=== PATIENT | male | born 1960 | race Caucasian/White ===

== ENCOUNTER 2019-07-26 06:04 | Inpatient (IN) | payer MEDICARE, SELFPAY ==
[2019-07-26] VITALS (18 sets, daily range): BP systolic 88–112; BP diastolic 56–74; PULSE 83–113; RESP 12–20; TEMP 36.4–37.4; O2SAT 93–100; BMI 24.9
--- NOTE | ~2019-07-26 | XR_ITS ---
EXAMINATION: XR chest 1V portable 07/26/2019 07:51 INDICATION: Low oxygen saturation PROCEDURE: AP portable chest COMPARISON: 06/09/2005 FINDINGS: The lungs are clear. The cardiomediastinal silhouette is within normal limits. There are no pleural effusions. There is no pneumothorax suspected. IMPRESSION: 1: NO ACUTE CARDIOPULMONARY DISEASE. Reviewed, dictated and finalized at location A.
--- NOTE | ~2019-07-26 | CT_ITS ---
EXAMINATION: CT abdomen pelvis w con DATE: 07/26/2019 06:58 INDICATION: Lower abdominal pain TECHNIQUE: Computed tomography (CT) of the abdomen and pelvis was performed with 100 cc Omnipaque 350 intravenous contrast. The dose-length product was 758.20 mGy-cm. Automated exposure control and iter ative reconstruction technique were employed. COMPARISON: None. FINDINGS: Bibasilar dependent atelectasis. Heart size normal. No significant pleural or pericardial e ffusion. No significant vascular abnormality. No lymphadenopathy. Appendix dilated measuring 16 mm with associated appendicolith. There is periappendiceal phlegmonous change. There is free fluid in the paracolic gutters, pelvis and perihepatic space. Cannot exclude pe rforation. No evidence for free air or abscess. Small subcentimeter hypodensity in the liver, most likely benign. The spleen contains calcified granu shirin. The pancreas, adrenal glands and kidneys are unremarkable. Incidental note is made of a gastri c diverticulum at the fundus. Mild thickening of the bladder wall with small amount of intraluminal g as, possibly from recent instrumentation. Grade 1 spondylolisthesis at L5-S1 secondary to bilateral s pondylolysis. Moderate lumbar spondylosis. IMPRESSION: 1. Acute appendicitis. Cannot exclude perforation. No evidence for free air or abscess. Reviewed, dictated and finalized at location A.
--- NOTE | 2019-07-26 06:19 | ED.ABDPAIN ---
HPI - Abdominal Pain General Chief Complaint: Abdominal Pain <Anna Reynolds MD - Last Filed: 07/26/19 06:51> Stated Complaint: abd pain <Anna Reynolds MD - Last Filed: 07/26/19 06:51> Time Seen by Provider: 07/26/19 06:07 <Anna Reynolds MD - Last Filed: 07/26/19 06:51> Source: patient <Anna Reynolds MD - Last Filed: 07/26/19 06:51> Mode of arrival: EMS <Anna Reynolds MD - Last Filed: 07/26/19 06:51> Limitations: no limitations <Anna Reynolds MD - Last Filed: 07/26/19 06:51> History of Present Illness HPI narrative: Patient is a 58-year-old man who presents to the emergency department via EMS for lower abdominal pain. Patient reports onset of symptoms a couple of days ago. Patient locates the pain diffusely across the lower abdomen feeling worse on the right side than the left. Patient states the pain had been intermittent but is worse this morning. Patient states his last bowel movement was 3 days ago. Patient states it is unusual as he normally goes every day. Patient denies any significant difficulty with urination, nausea, or vomiting. Patient reports mild dysuria this morning. <Anna Reynolds MD - Last Filed: 07/26/19 06:51> MD elicited complaint: abdominal pain <Anna Reynolds MD - Last Filed: 07/26/19 06:51> Pertinent past history: none <Anna Reynolds MD - Last Filed: 07/26/19 06:51> Onset (ago): day(s) (3) <Anna Reynolds MD - Last Filed: 07/26/19 06:51> Pain Consistency: constant (Currently) and intermittent (Initially) <Anna Reynolds MD - Last Filed: 07/26/19 06:51> Location: RLQ, LLQ and suprapubic <Anna Reynolds MD - Last Filed: 07/26/19 06:51> Associated symptoms: constipation <Anna Reynolds MD - Last Filed: 07/26/19 06:51> Related Data Home Medications: Home Medications Medication Instructions Recorded Confirmed acetaminophen [Tylenol] 500 mg PO BID PRN 07/26/19 07/26/19 albuterol sulfate 1 - 4 puff INHALATION Q4-6H PRN 07/26/19 07/26/19 aspirin 81 mg PO DAILY 07/26/19 07/26/19 fentanyl See Rx Instructions .ROUTE .COMPLEX 07/26/19 07/26/19 gabapentin 200 mg PO QID 07/26/19 07/26/19 hydrochlorothiazide 12.5 mg PO DAILY 07/26/19 07/26/19 hydrocodone-acetaminophen 1 tablet PO Q4H PRN 07/26/19 07/26/19 levothyroxine 50 mcg PO DAILY 07/26/19 07/26/19 loratadine 10 mg PO DAILY 07/26/19 07/26/19 losartan 50 mg PO DAILY 07/26/19 07/26/19 thmxyyhh-hbn-zjrwx-vit K-lycop 1 tablet PO DAILY 07/26/19 07/26/19 [Men's Multivitamin] naproxen sodium [Aleve] 220 mg PO BID 07/26/19 07/26/19 pantoprazole 40 mg PO DAILY 07/26/19 07/26/19 sertraline 100 mg PO DAILY 07/26/19 07/26/19 <Anna Reynolds MD - Last Filed: 07/26/19 06:51> Allergies/Adverse Reactions: Allergies Allergy/AdvReac Type Severity Reaction Status Date / Time poison rubén extract Allergy Unknown Verified 05/13/19 08:40 pollen extracts Allergy Unknown Verified 05/13/19 08:40 <Anna Reynolds MD - Last Filed: 07/26/19 06:51> Review of Systems Review of Systems: All systems reviewed & are unremarkable except as noted in HPI and below <Anna Reynolds MD - Last Filed: 07/26/19 06:51> Gastrointestinal: Gastrointestinal: Reports abdominal pain, Reports constipation, Denies diarrhea, Denies nausea and Denies vomiting <Anna Reynolds MD - Last Filed: 07/26/19 06:51> Genitourinary: Genitourinary: Denies hematuria and Reports dysuria (This morning) <Anna Reynolds MD - Last Filed: 07/26/19 06:51> [facility] Past Medical History Medical History: Medical History (Updated 07/26/19 @ 15:52 by Molly Gee PA-C) Chronic low back pain (Unknown) Chronic, continuous use of opioids Depression Fibromyalgia GERD (gastroesophageal reflux disease) Hypertension (Unknown) Hypothyroidism Mitral valve regurgitation Echocardiogram 01/21/2018 showed mild
[2019-07-26 06:21] LABS: Basophils Percent Auto 0.2 % (0.2-1.2); Eosinophils Percent Auto 0.2 % (0-4.4); Hemoglobin 13.3 g/dL (14.0-18.0); Lymphocytes Absolute Auto 0.87 K/mm3 (0.9-3.2); Mean Corpuscular HGB Conc 34.1 g/dl (32-36); Mean Corpuscular Hemoglobin 30.7 pg (26-34); Mean Corpuscular Volume 90.1 fl (80-100); Mean Platelet Volume 9.1 fl (7.4-10.4); Monocytes Absolute Auto 0.2 K/mm3 (0.1-0.6); Monocytes Percent Auto 3.3 % (2.6-8.5); Neutrophils Absolute Auto 3.8 K/mm3 (1.3-6.7); Neutrophils Percent Auto 78.3 % (45.5-73.1); Platelet Count Result 342 k/mm3 (150-375); Red Blood Count 4.33 M/mm3 (4.6-6.20); Red Cell Distribution Width 12.8 % (11.5-14.5); White Blood Count 4.8 K/mm3 (4.5-10.0)
[2019-07-26] MEDS: LACTATED RINGERS 1,000 ML 999 ML IV CONT ×2 (06:26→07:20)
[2019-07-26 06:28] LABS: Add Urine Microscopic? NO; Appearance Urine Clear (Clear); Bilirubin Urine Negative (Negative); Blood Urine Negative (Negative); Color Urine Yellow (Yellow); Glucose Urine UA Negative (Negative); Ketones Urine Negative (Negative); Leukocyte Esterase Ur Negative LEU/UL (Negative); Nitrate Urine Negative (Negative); Protein Urine Negative (Negative); RBC Urine 0-2 /hpf (0-2); Urobilinogen Urine Negative mg/dL (<2.0); WBC Urine 0-3 /hpf
[2019-07-26 06:33] LABS: Alanine Aminotransferase 17 U/L (4-50); Albumin Level 4.3 g/dL (3.5-5.1); Alkaline Phosphatase 56 U/L (38-126); Aspartate Amino Transferase 21 U/L (17-59); Bilirubin,Total 1.1 mg/dL (0.2-1.3); Blood Urea Nitrogen 9 mg/dL (9-20); Calcium 8.8 mg/dL (8.4-10.2); Carbon Dioxide 28 mmol/L (22-30); Chloride 97 mmol/L (98-107); Estimated CRCL calculation 78 ml/min; Estimated Glomerular Filt Rate > 60; Glucose 128 mg/dL (75-110); Lipase 16 U/L (23-300); Potassium 3.2 mmol/L (3.4-5.0); Sodium 135 mmol/L (137-145)
[2019-07-26 06:59] LABS: INR 1.4; Prothrombin Time 16.3 Seconds (11.1-14.7)
[2019-07-26 07:00] LABS: Partial Thromboplastin Time 32.5 SECONDS (22.3-36.8)
[2019-07-26 07:04] LABS: Lactic Acid Reflex 1.8 mmol/L (0.7-2.1)
--- NOTE | 2019-07-26 07:46 | PC.NURSE ---
While pt fell asleep pulse OX went down to 90-91% on RA. MD Bird went in room to update pt at this time and placed pt on 2L nasal cannula. Pt now awake and 02 saturation is back to 100%. Will keep O2 2L to allow pt to fall asleep without low O2 levels
[2019-07-26] MEDS: HYDROMORPHONE HCL 1 MG/ML INJ 0.5 MG IV PUSH (07:58)
--- NOTE | 2019-07-26 07:59 | ECG_ITS ---
Measurements Intervals [place] Rate: 112 P: 65 CT: 171 QRS: 35 QRSD: 109 T: 33 QT: 286 QTc: 391 Interpretive Statements SINUS TACHYCARDIA NONSPECIFIC T-WAVE ABNORMALITY- DIFFUSE LEADS ABNORMAL ECG Electronically Signed On 07-26-2019 13:11:55 CDT by Jakob Gomez D.O.
[2019-07-26] MEDS: ONDANSETRON INJ 4 MG/2 ML VIAL IV PUSH ×2 (08:00→14:54)
--- NOTE | 2019-07-26 09:08 | PC.NURSE ---
Carolyne RN from OR called and nurse report given. Will prepare pt to transport to OR shortly. VSS.
[2019-07-26] MEDS: LACTATED RINGERS 1,000 ML 150 ML IV CONT (09:23)
--- NOTE | 2019-07-26 09:23 | PM.IMHP ---
H&P: HPI History of Present Illness Chief complaint: abd pain Narrative: Braxton Dyson is a 58-year-old man who presented to the emergency department via EMS for lower abdominal pain. Patient reports onset of symptoms a couple of days ago. Patient states this really started about 1:00 p.m. 2 days ago on . That then led up a little bit in came back some in the evening on . He slept fitfully on Sunday night she has me night and then Sunday he had pain on and off through the day. He was able to eat he did not have any nausea or vomiting those 2 days. Pain got significantly worse overnight last night so he decided to come in. Patient locates the pain diffusely across the lower abdomen feeling worse on the right side than the left. Patient states the pain had been intermittent but is worse this morning starting sometime in the middle the night. Patient states his last bowel movement was 3 days ago. Patient states it is unusual as he normally goes every day. He has never had a colonoscopy. Patient denies any significant difficulty with urination, nausea, or vomiting. Patient reports mild dysuria this morning. Workup in the emergency room showed a normal white count and that he's slightly tachycardic and his CT scan shows a 16 mm diameter appendix with surrounding inflammatory change and some pelvic free fluid. (See report). Review of Systems Constitutional: Constitutional: Reports no additional constitutional complaints and Denies frequent falls Eyes: Eyes: Reports as per HPI ENT: Reports Normal hearing present, Denies dizziness and Reports other (Mucous membranes moist.) Cardiovascular: Cardiovascular: Denies chest pain, Denies palpitations, Denies dyspnea and Denies dyspnea on exertion Respiratory: Respiratory: Denies hemoptysis, Denies dyspnea, Denies dyspnea on exertion and Denies wheezing Comments: Patient does smoke 2 packs of cigarettes per day for about 25 years. (50 pack-year history of smoking Is on some inhalers. Denies any shortness of breath or problems today. Gastrointestinal: Gastrointestinal: Reports no additional gastrointestinal complaints Genitourinary: Genitourinary: Denies hematuria, Denies nocturia and Denies urinary frequency Musculoskeletal: Musculoskeletal: Denies deformity and Reports other ( no clubbing,cyanosis, or edema) Integumentary/Breasts: Skin/Breast: Denies new lesions, Denies rash and Denies unusual bruising Neurologic: Reports Normal hearing present, Denies dizziness, Denies frequent falls, Denies memory loss and Denies seizure-like activity Comments: Patient states that he has had spinal issues. He has had pain management injections and at one time apparently has sustained some type of neurologic injury at the level of about T6 or 7 because he has tingling and pain in his arms and shoulders a lot. He is on a 25 mg fentanyl patch for this problem. Psychiatric: Psychiatric: Denies memory loss and Reports other ( normal mood and mental status) Endocrine: Endocrine: Denies cold intolerance and Denies palpitations Hematologic/Lymphatic: Hematologic/Lymphatic: Denies easy bleeding and Denies easy bruising Allergic/Immunologic: Allergic/Immunologic: Denies wheezing and Reports other ( no lymphadenopathy) [facility] Past Medical History Medical History Chronic low back pain (Unknown) Depression Fibromyalgia Hypertension (Unknown) Hypothyroidism Smoker unmotivated to quit (Unknown) Surgical History Surgical History (Updated 07/26/19 @ 06:21 by Anna Reynolds MD) No significant past surgical history Family History Family History (System 05/13/19 @ 08:40 by Idania Farfan) Other Depression Diabetes mellitus Family history of arthritis Family history of mental disorder Family history of thyroid disease Hypertension Social History Social History (Updated 07/26/19 @ 06:21 by Anna Reynolds MD) Smoking packs per day: 2 Smoking ciga
--- NOTE | 2019-07-26 10:02 | WPDANESEPP ---
Anes - Eval Pre Procedure Procedure: Operation Date: 07/26/19 09:30 Proposed Procedures p Laparoscopic Appendectomy - Aroldo Vasquez MD Date/Time: 07/26/19 10:02 Surgeon: Aroldo Vasquez MD Pre Op Diagnosis: abd pain Patient Data Age: 58 Gender: M Height: 5 ft 6 in Weight: 70 kg Last Vital Signs Temp 99.2 F 07/26/19 07:51 Pulse 110 H 07/26/19 09:28 Resp 20 07/26/19 09:28 BP 104/74 07/26/19 09:28 Pulse Ox 98 07/26/19 09:28 Allergies Allergy/AdvReac Type Severity Reaction Status Date / Time poison rubén extract Allergy Unknown Verified 05/13/19 08:40 pollen extracts Allergy Unknown Verified 05/13/19 08:40 Home Medications Medication Instructions Recorded Confirmed Type albuterol sulfate 90 mcg/actuation 1 - 4 inhalation INHALATION Q4-6H 06/30/19 Rx aerosol inhaler PRN #18 gm acetaminophen [Tylenol] 500 mg PO BID PRN 07/26/19 07/26/19 History aspirin 81 mg PO DAILY 07/26/19 07/26/19 History fentanyl 1 patch TOPICAL 07/26/19 History gabapentin 200 mg PO QID 07/26/19 07/26/19 History hydrochlorothiazide 12.5 mg PO DAILY 07/26/19 07/26/19 History hydrocodone-acetaminophen 1 tablet PO Q4H PRN 07/26/19 07/26/19 History levothyroxine 50 mcg PO DAILY 07/26/19 07/26/19 History loratadine 10 mg PO DAILY 07/26/19 07/26/19 History losartan 50 mg PO DAILY 07/26/19 07/26/19 History nbsriufy-cef-bxuav-vit K-lycop 1 tablet PO DAILY 07/26/19 07/26/19 History [Men's Multivitamin] naproxen sodium [Aleve] 220 mg PO BID 07/26/19 07/26/19 History pantoprazole 40 mg PO DAILY 07/26/19 07/26/19 History sertraline 100 mg PO DAILY 07/26/19 07/26/19 History Laboratory Tests 07/26/19 07/26/19 07/26/19 06:11 06:11 06:12 WBC 4.8 K/mm3 K/mm3 (4.5-10.0) RBC 4.33 M/mm3 L M/mm3 (4.6-6.20) Hgb 13.3 g/dL L g/dL (14.0-18.0) Hct 39.0 % L % (42.0-52.0) MCV 90.1 fl fl (80-100) MCH 30.7 pg pg (26-34) MCHC 34.1 g/dl g/dl (32-36) RDW 12.8 % % (11.5-14.5) Plt Count 342 k/mm3 k/mm3 (150-375) MPV 9.1 fl fl (7.4-10.4) Immature Gran % (Auto) 0.0 % % (0-0.5) Neut % (Auto) 78.3 % H % (45.5-73.1) Lymph % (Auto) 18.0 % L % (18.3-44.2) [place] % (Auto) 3.3 % % (2.6-8.5) Eos % (Auto) 0.2 % % (0-4.4) Baso % (Auto) 0.2 % % (0.2-1.2) Lymph # (Auto) 0.87 K/mm3 L K/mm3 (0.9-3.2) [place] # (Auto) 0.2 K/mm3 K/mm3 (0.1-0.6) Eos # (Auto) 0.0 K/mm3 K/mm3 (0-0.3) Baso # (Auto) 0.0 K/mm3 K/mm3 (0.0-0.1) Abs Immat Gran (auto) 0.00 K/mm3 K/mm3 (0.00-0.031) Absolute Neuts (auto) 3.8 K/mm3 K/mm3 (1.3-6.7) Absolute Nucleated RBC 0.0 K/mm3 K/mm3 (0.0-0.012) Nucleated RBC % 0.0 % % (0.0-0.2) PT INR APTT Sodium 135 mmol/L L mmol/L (137-145) Potassium 3.2 mmol/L L mmol/L (3.4-5.0) Chloride 97 mmol/L L mmol/L (98-107) Carbon Dioxide 28 mmol/L mmol/L (22-30) BUN 9 mg/dL mg/dL (9-20) Creatinine 0.80 mg/dL mg/dL (0.7-1.3) Estim Creat Clear Calc 78 ml/min ml/min Estimated GFR > 60 (59 - ) Glucose 128 mg/dL H mg/dL (75-110) Lactic Acid Calcium 8.8 mg/dL mg/dL (8.4-10.2) Total Bilirubin 1.1 mg/dL mg/dL (0.2-1.3) AST 21 U/L U/L (17-59) ALT 17 U/L U/L (4-50) Alkaline Phosphatase 56 U/L U/L (38-126) Total Protein 7.0 g/dL g/dL (6.3-8.2) Albumin 4.3 g/dL g/dL (3.5-5.1) Lipase 16 U/L L U/L (23-300) Urine Color Yellow (Yellow) Urine Appearance Clear (Clear) Urine pH 6.0 (5.0-9.0) Ur Specific [place] 1.010 (1.001-1.035) Urine Protein Negative mg/dL mg/dL (Negative) Urine G
--- NOTE | 2019-07-26 10:11 | WPDANESEFPP ---
Anes - Eval Final PreProcedure Day of Procedure 07/26/19 10:11 Patient weight: normal Heart: tachycardia Lungs: decreased breath sounds Airway: Mallampati scale class II Neurological: alert and oriented Last oral intake: >/= 8 hours ASA classification: III Emergent: yes Anesthetic plan: proceed Anesthesia type and monitoring: general ETT and standard monitoring Informed Consent: The patient's anesthetic plan and its attendant risks and benefits were discussed with the patient/family/POA. Questions were solicited and answers provided to the satisfaction of the patient/family/POA.
[2019-07-26] MEDS: BUPIVACAINE/EPINEPHRINE 0.5% 30 ML VIAL INFILTRATE (11:03)
[2019-07-26] MEDS: LACTATED RINGERS 1,000 ML 30 ML IV CONT ×2 (12:28)
--- NOTE | 2019-07-26 12:43 | PM.PROC ---
Procedure Note - Detailed Date of procedure: 07/26/19 Pre-op diagnosis: acute appendicitis with perforation and general pe Acute appendicitis Post-op diagnosis: other (1. Acute perforated appendicitis with generalized peritonitis, 2. Small left inguinal hernia white male for see list call if patient is Susan asked Fedder discharge for the her ) Procedure performed: Laparoscopic Appendectomy Description of procedure: The patient was seen again in the Holding Room. The risks, benefits, complications, treatment options, and expected outcomes were discussed with the patient and/or family. The possibilities of reaction to medication, pulmonary aspiration, perforation of viscus, bleeding, recurrent infection, finding a normal appendix, the need for additional procedures, failure to diagnose a condition, and creating a complication requiring transfusion or operation were discussed. There was concurrence with the proposed plan and informed consent was obtained. The site of surgery was properly noted/marked. The patient was taken to Operating Room, and a time out was preformed which identified this as the proper patient, and the procedure verified as laparoscopic appendectomy, possible open. The patient was placed in the supine position and general anesthesia was induced, along with placement of orogastric tube, SCD hose, and a Potter catheter. The abdomen was prepped and draped in a sterile fashion. A 5 mm umbilical incision was made and the peritoneal cavity was accessed using the Veress needle technique. Once the abdomen was insufflated to 14 mmHg pressure a 5 mm XL trocar over the 0? 5 mm scope was carefully twisted into the abdomen via the umbilicus. The pneumoperitoneum was then established to steady pressure of 14 mm Hg. A 12 mm laparoscopic port was placed through a transverse suprapubic incision. An additional 5 mm cannula was then placed in the left lower quadrant of the abdomen at a level half way between the umbilicus and pubic symphysis under direct vision. A careful evaluation of the entire abdomen was carried out. A small left inguinal hernia without anything in it was identified. Also there was noted to be purulent fluid within the abdominal cavity and several loops of small bowel loosely adhered to the anterior abdominal wall and to the cecum in the right lower quadrant. There was cloudy yellowish fluid in the right upper quadrant also. Suction contracts analyst was used to remove 100 cc of fluid prior to his doing any so irrigation. Approximately 800-900 cc of irrigation were used throughout the procedure. The patient was placed in Trendelenburg and left lateral decubitus position. The small intestines were retracted in the cephalad and left lateral direction away from the pelvis and right lower quadrant. The patient was found to have an enlarged and inflamed and perforated appendix that was extending into the right side of the pelvis. The appendix was carefully dissected. Once it was free a 45 mm ethicon endogastroentestinal stapler with a vascular load was placed across the mesoappendix. This was fired and hemostasis was checked along the staple line and appeared to be adequate. Then another cartridge containing a vascular load applied and the stapler then placed right to the base of the appendix. This was also fired and bleeding was checked. Large hole was noted in the sidewall of the appendix near its base. I was then able to come across the base with the final stapler and remove the appendix intact with a hole in it. The appendix was then divided at its base using the same 45 mm stapler with a 3.5 mm bowel wall load. Minimal appendiceal stump was left in place. No obvious mass was noted at the cecum. The sidewall the cecum was carefully dissected away from the right and pelvic sidewall for a length of about 2-3 cm prior to the stapling of the base the appendix. There was no evidence of bleeding, leakage, or complication after division of the appendix at
--- NOTE | 2019-07-26 13:01 | SUR.PHASEI ---
1300; REPORT GIVEN TO LAUREN CORONADO
--- NOTE | 2019-07-26 14:25 | ADMGEN ---
This patient, Braxton Dyson, was admitted to Medical Room 247-. Patient/family oriented to hospital policies and general routines including ID bracelet, bed and alarms, visiting hours, pain management, procedures, bathroom and other care routines, personal items, smoking policy, room service/diet, and visiting hours. Valuables list has been completed. Information on how to activate the Rapid Response Team has been discussed. Patient/Family are encouraged to report perceived risks to care and to ask questions if they do not understand what they are told or what they should do.
[2019-07-26] MEDS: MORPHINE SULFATE 2 MG/ML INJ IV PUSH (14:53)
[2019-07-26] MEDS: LACTATED RINGERS 500 ML IV CONT (15:35)
--- NOTE | 2019-07-26 16:00 | WPDCN ---
Assessment and Plan Assessment and plan (1) Acute appendicitis with localized peritonitis: Onset Date: ~07/25/19 Qualifiers: Appendicitis abscess presence: without abscess Appendicitis gangrene presence: unspecified whether gangrene present Appendicitis perforation presence: unspecified whether perforation present Qualified Code(s): K35.30 - Acute appendicitis with localized peritonitis, without perforation or gangrene Code(s): K35.30 - Acute appendicitis with localized peritonitis, without perforation or gangrene Status: Acute Assessment and Plan: Post-operative day #0, status post laparoscopic appendectomy for acute perforated appendicitis with generalized peritonitis. Drain management, wound care, and pain control will be managed per primary service. Piperacillin/tazobactam day #1. (2) Hypokalemia: Code(s): E87.6 - Hypokalemia Status: Acute Assessment and Plan: Potassium will be replaced and monitored. (3) Hypertension: Onset Date: Unknown Code(s): I10 - Essential (primary) hypertension Status: Acute Assessment and Plan: Blood pressures were reviewed and they have been running soft postoperatively. He will receive 1 liter normal saline bolus and we will hold antihypertensives for now. Continue to monitor blood pressure closely. (4) Hypothyroidism: Code(s): E03.9 - Hypothyroidism, unspecified Status: Acute Assessment and Plan: Continue levothyroxine. (5) Chronic, continuous use of opioids: Code(s): F11.90 - Opioid use, unspecified, uncomplicated Status: Acute Assessment and Plan: For chronic low back pain, which he uses fentanyl patch and [place] p.r.n. (6) Tobacco abuse: Code(s): Z72.0 - Tobacco use Status: Acute Assessment and Plan: Smoking cessation is encouraged. He declines the need for a nicotine patch at this juncture. Additional Plan Supervising physician for this medical consultation is Dr. Jorge Adler. Thank you for allowing us to participate in this patient's care. Please do not hesitate to contact us with any questions. We will follow with you. HPI Data of Consult Date/Time: 07/26/19 16:00 Requesting Physician: Aroldo Vasquez MD Primary Care Provider: Janey Louie, Consult Narrative Narrative: Braxton Dyson is a 58-year-old male smoker with chronic back pain on long-term opiate therapy, hypertension, hypothyroidism, and depression who presented to the emergency department earlier this morning from home for evaluation of abdominal pain. He reports an insidious onset of lower abdominal pain beginning on afternoon. The pain got significantly worse overnight, centered more so in the right lower quadrant, and he came in for evaluation. He was found to have acute perforated appendicitis with generalized peritonitis and he is now status post laparoscopic appendectomy per Dr. Aroldo Vasquez. At the time my evaluation, he is sleepy from anesthesia. He is not having a whole lot of discomfort at this time. He did have some sweats last evening but no fever or chills. Interestingly, his appetite has been good over the last several days. He denies nausea, vomiting, and diarrhea. In fact, he has not had a bowel movement for the last 3 days, which is unusual for him. He also mentions some dysuria yesterday but that has since resolved. No hematuria, urinary hesitancy, or urgency. Review of Systems Review of Systems: Narrative: Twelve systems were reviewed with pertinent positives and negatives as per HPI.
[2019-07-26] MEDS: NICOTINE (*PBKC) 21 MG PATCH 1 PATCH TRANSDERM (16:37)
[2019-07-26] MEDS: LACTATED RINGERS 1,000 ML 100 ML IV CONT (16:43)
[2019-07-26] MEDS: SODIUM CHLORIDE 0.9% IV 1,000 ML 999 ML IV CONT (18:45)
[2019-07-26 19:21] LABS: Hemoglobin 10.4 g/dL (14.0-18.0); Mean Corpuscular HGB Conc 33.5 g/dl (32-36); Mean Corpuscular Hemoglobin 30.5 pg (26-34); Mean Corpuscular Volume 90.9 fl (80-100); Mean Platelet Volume 9.4 fl (7.4-10.4); Platelet Count Result 282 k/mm3 (150-375); Red Blood Count 3.41 M/mm3 (4.6-6.20); Red Cell Distribution Width 13.1 % (11.5-14.5)
[2019-07-26 19:33] LABS: Lactic Acid Reflex 2.3 mmol/L (0.7-2.1)
[2019-07-26 19:34] LABS: Blood Urea Nitrogen 9 mg/dL (9-20); Calcium 7.7 mg/dL (8.4-10.2); Carbon Dioxide 29 mmol/L (22-30); Chloride 98 mmol/L (98-107); Estimated CRCL calculation 78 ml/min; Estimated Glomerular Filt Rate > 60; Glucose 119 mg/dL (75-110); Magnesium 1.3 mg/dL (1.6-2.3); Phosphorus 3.9 mg/dL (2.5-4.5); Potassium 3.4 mmol/L (3.4-5.0); Sodium 134 mmol/L (137-145)
[2019-07-26] MEDS: SODIUM CHLORIDE 0.9% IV 500 ML IV CONT (19:54)
[2019-07-26] MEDS: SENNA/DOCUSATE SODIUM TABLET 2 TAB PO (20:24)
[2019-07-26] MEDS: GABAPENTIN 100 MG CAPSULE 200 MG PO (20:25)
[2019-07-26] MEDS: MAGNESIUM SULF 2 GM/WATER 50ML 2 GM/50 ML BAG IVPB (21:56)
[2019-07-26 22:20] LABS: Reflex Lactic Acid Yes or No Add Lactic
[2019-07-26 22:54] LABS: Lactic Acid 1.6 mmol/L (0.7-2.1)
[2019-07-27] VITALS (10 sets, daily range): BP systolic 88–117; BP diastolic 58–74; PULSE 96–109; RESP 16–20; TEMP 36.8–37.5; O2SAT 94–98
[2019-07-27 02:21] LABS: Hematocrit 29.4 % (42.0-52.0); Hemoglobin 10.1 g/dL (14.0-18.0); Mean Corpuscular HGB Conc 34.4 g/dl (32-36); Mean Corpuscular Hemoglobin 30.8 pg (26-34); Mean Corpuscular Volume 89.6 fl (80-100); Red Blood Count 3.28 M/mm3 (4.6-6.20); Red Cell Distribution Width 13.1 % (11.5-14.5); White Blood Count 10.8 K/mm3 (4.5-10.0)
[2019-07-27] MEDS: LACTATED RINGERS 500 ML 250 ML IV CONT (02:21)
[2019-07-27 02:33] LABS: Alanine Aminotransferase 14 U/L (4-50); Alkaline Phosphatase 32 U/L (38-126); Aspartate Amino Transferase 23 U/L (17-59); Blood Urea Nitrogen 9 mg/dL (9-20); Calcium 7.5 mg/dL (8.4-10.2); Carbon Dioxide 26 mmol/L (22-30); Chloride 100 mmol/L (98-107); Estimated CRCL calculation 102 ml/min; Estimated Glomerular Filt Rate > 60; Glucose 112 mg/dL (75-110); Potassium 3.2 mmol/L (3.4-5.0); Sodium 132 mmol/L (137-145)
[2019-07-27 02:46] LABS: Band Neutrophils Percent 10 % (0-6); Large Platelets Present; Lymphocytes Absolute Manual 1.29 K/mm3 (1.1-4.5); Monocytes Absolute Manual 0.54 K/mm3 (0.1-0.90); Monocytes Percent Manual 5 % (3-9); Neutrophils Absolute Manual 8.96 K/mm3 (1.3-6.7); Neutrophils Percent Manual 73 % (46-73); Platelet Clumps Present; Platelet Estimate Adequate (Adequate); Total Cells Counted 100
[2019-07-27] MEDS: ONDANSETRON INJ 4 MG/2 ML VIAL IV PUSH ×2 (04:24→22:23)
[2019-07-27] MEDS: LACTATED RINGERS 1,000 ML 150 ML IV CONT (04:39)
[2019-07-27] MEDS: LEVOTHYROXINE SODIUM 50 MCG TABLET PO (05:37)
[2019-07-27] MEDS: POTASSIUM CHLORIDE 20 MEQ TABLET 40 MEQ PO (08:26)
[2019-07-27 08:27] LABS: Magnesium 1.9 mg/dL (1.6-2.3)
[2019-07-27] MEDS: ENOXAPARIN 40 MG/0.4 ML SYRINGE SUB-Q (09:08)
[2019-07-27] MEDS: LORATADINE 10 MG TABLET PO (09:09)
[2019-07-27] MEDS: GABAPENTIN 100 MG CAPSULE 200 MG PO ×4 (09:09→20:20)
[2019-07-27] MEDS: PANTOPRAZOLE 40 MG TABLET PO ×2 (09:09→20:20)
[2019-07-27] MEDS: SERTRALINE HCL 50 MG TABLET 100 MG PO (09:09)
[2019-07-27] MEDS: NICOTINE (*PBKC) 21 MG PATCH 1 PATCH TRANSDERM (09:12)
[2019-07-27] MEDS: polyethylene glycoL 3350 17 GM POWD.PACK PO (09:17)
--- NOTE | 2019-07-27 09:59 | PM.PNGS ---
Progress Note: A&P Assessment and Plan (1) Acute appendicitis with perforation, generalized peritonitis, and gangrene, without abscess: Onset Date: ~07/25/19 Code(s): K35.20 - Acute appendicitis with generalized peritonitis, without abscess Status: Acute Assessment and Plan: patient receiving IV antibiotics. Lab seemed to be okay except for slow low potassium. Had some episodes of hypotension yesterday probably related to peritonitis. Hopefully this will improve with time period continue to monitor with urine output and appreciate hospitalist help with his medical problems. (2) Hypokalemia: Onset Date: ~07/27/19 Code(s): E87.6 - Hypokalemia Status: Acute Assessment and Plan: Receiving supplementation. (3) Tobacco abuse: Onset Date: Unknown Code(s): Z72.0 - Tobacco use Status: Acute Assessment and Plan: Patient has p.r.n. nicotine patches. Will encourage patient to stop smoking. (4) Chronic, continuous use of opioids: Onset Date: Unknown Code(s): F11.90 - Opioid use, unspecified, uncomplicated Status: Acute Assessment and Plan: Patient has a fentanyl patch on his right upper arm which will need to be changed tomorrow. Controlling patient's pain with usual medications. (5) Smoker unmotivated to quit: Onset Date: Unknown Code(s): F17.200 - Nicotine dependence, unspecified, uncomplicated Status: Acute Assessment and Plan: Will encourage patient to stop smoking. Additional Plan Agree with potassium supplementation Will increase diet to full liquids Continue IV antibiotics for now. If improve may be able to go home tomorrow on oral antibiotics to total 10-14 days. Subjective Subjective Date/Time Seen: 07/27/19 09:59 Post Op day: 1 Patient reports: no new complaints Interval history: Patient had intermittent hypotension through the day yesterday. He received several boluses with improvement. Most recent blood pressure was 108 systolic. He has some trouble voiding routinely and required straight catheterization plus Potter catheter is now placed again for good monitoring of urine output. Patient not having too much abdominal pain and is tolerating liquids well. Will increase to full liquids now. Review of Systems Constitutional: Constitutional: Reports no additional constitutional complaints ENT: Reports other (Mucous Membranes moist.) Cardiovascular: Cardiovascular: Denies dyspnea Respiratory: Respiratory: Denies pain on inspiration and Denies dyspnea Musculoskeletal: Musculoskeletal: Reports other (No calf swelling or edema) Integumentary/Breasts: Skin/Breast: Reports system reviewed and no additional complaints, except as docu Exam Const: General: cooperative, no acute distress, alert and awake Orientation/consciousness: patient oriented x3 HENMT: Mouth: Yes moist mucous membranes Neck: Neck: normal visual inspection Chest: Chest palpation & inspection: normal inspection of the chest Resp: Effort & Inspection: normal respiratory effort Auscultation: clear to auscultation bilaterally Cardio: Jugular venous distension: no JVD Rate: regular rate Rhythm: regular rhythm GI: Inspection: incision ( All 3 laparoscopic incisions healing well) GI Palp: Yes abdominal tenderness ( Mild and improved.) Auscultation: normal bowel sounds Rectal Exam: deferred Other: drain site is covered with a Tegaderm. Yellowish cloudy drainage from the STEPHEN drain. Neuro: General: patient oriented x3 and moves all extremities Speech: normal speech Extrem: General: normal exam except as noted Psych: Mental Status: mental status grossly normal Speech and movement: Normal speech and movement present Affect: normal affect Thought content: Yes Normal thought content present Objective Data Vital Signs Vital Signs: Vital Signs - 24 hr 07/26/19 12:28 07/26/19 12:40 07/26/19 12:55
--- NOTE | 2019-07-27 10:39 | P.PNIM_ITS ---
Progress Note: A&P Assessment and Plan (1) Acute appendicitis with localized peritonitis: Onset Date: ~07/25/19 Qualifiers: Appendicitis abscess presence: without abscess Appendicitis gangrene presence: unspecified whether gangrene present Appendicitis perforation presence: unspecified whether perforation present Qualified Code(s): K35.30 - Acute appendicitis with localized peritonitis, without perforation or gangrene Code(s): K35.30 - Acute appendicitis with localized peritonitis, without perforation or gangrene Status: Suspected Assessment and Plan: * Post-operative day #1, status post laparoscopic appendectomy for acute perforated appendicitis with generalized peritonitis. * STEPHEN Drain in place, with yellowish drainage noted. Surgery to manage STEPHEN drain, wound care, and pain control. * Piperacillin/tazobactam day #2. * Surgery has increased his diet to full liquids at this time. * Patient informed me that his pain has not been well controlled because he is normally on [place] 10/325 p.r.n. at home and here he is only receiving 7.5/325 mg for his pain. I discussed this with Dr. Vasquez and he feels comfortable with increasing his pain medications to his normal home [place] 10/325 mg. I do not want to increase his narcotics anymore due to his hypotension. Will continue managing his pain. * Will continue monitoring his symptoms along with the surgical team. (2) Hypokalemia: Onset Date: ~07/27/19 Code(s): E87.6 - Hypokalemia Status: Acute Assessment and Plan: * Potassium was low at 3.3 this morning. I administer oral potassium 40 mEq. Magnesium was 1.9. Stable. * Will recheck potassium in the morning. (3) Hypertension: Onset Date: Unknown Code(s): I10 - Essential (primary) hypertension Status: Acute Assessment and Plan: * Blood pressures were reviewed and they have been running soft postoperatively. Could be secondary to sedation and narcotics. * Postop he received 1 liter normal saline bolus, and he received another 500 cc by the rice farmer. * His blood pressure this morning was improved at 108/62. * Continue to monitor blood pressure closely. Continue to hold his home blood pressure medications at this time. (4) Hypothyroidism: Code(s): E03.9 - Hypothyroidism, unspecified Status: Acute Assessment and Plan: * Continue levothyroxine. (5) Chronic, continuous use of opioids: Onset Date: Unknown Code(s): F11.90 - Opioid use, unspecified, uncomplicated Status: Acute Assessment and Plan: * For chronic low back pain, which he uses fentanyl patch and [place] 10/325 mg p.r.n.. (6) Tobacco abuse: Onset Date: Unknown Code(s): Z72.0 - Tobacco use Status: Acute Assessment and Plan: * Smoking cessation is encouraged. * He declines the need for a nicotine patch at this juncture. Time Spent With Patient Time with patient: 25 - 35 minutes Subjective Date/time seen: 07/27/19 10:39 Interval history: Date of service 07/27/2019: The patient reports being in some pain since his surgery yesterday but is overall feeling slightly better. He states at home he takes [place] 10/325 mg 5
--- NOTE | 2019-07-27 10:39 | PM.IMPN ---
Progress Note: A&P Assessment and Plan (1) Acute appendicitis with localized peritonitis: Onset Date: ~07/25/19 Qualifiers: Appendicitis abscess presence: without abscess Appendicitis gangrene presence: unspecified whether gangrene present Appendicitis perforation presence: unspecified whether perforation present Qualified Code(s): K35.30 - Acute appendicitis with localized peritonitis, without perforation or gangrene Code(s): K35.30 - Acute appendicitis with localized peritonitis, without perforation or gangrene Status: Suspected Assessment and Plan: Post-operative day #1, status post laparoscopic appendectomy for acute perforated appendicitis with generalized peritonitis. STEPHEN Drain in place, with yellowish drainage noted. Surgery to manage STEPHEN drain, wound care, and pain control. Piperacillin/tazobactam day #2. Surgery has increased his diet to full liquids at this time. Patient informed me that his pain has not been well controlled because he is normally on [place] 10/325 p.r.n. at home and here he is only receiving 7.5/325 mg for his pain. I discussed this with Dr. Vasquez and he feels comfortable with increasing his pain medications to his normal home [place] 10/325 mg. I do not want to increase his narcotics anymore due to his hypotension. Will continue managing his pain. Will continue monitoring his symptoms along with the surgical team. (2) Hypokalemia: Onset Date: ~07/27/19 Code(s): E87.6 - Hypokalemia Status: Acute Assessment and Plan: Potassium was low at 3.3 this morning. I administer oral potassium 40 mEq. Magnesium was 1.9. Stable. Will recheck potassium in the morning. (3) Hypertension: Onset Date: Unknown Code(s): I10 - Essential (primary) hypertension Status: Acute Assessment and Plan: Blood pressures were reviewed and they have been running soft postoperatively. Could be secondary to sedation and narcotics. Postop he received 1 liter normal saline bolus, and he received another 500 cc by the cylinder press operator apprentice. His blood pressure this morning was improved at 108/62. Continue to monitor blood pressure closely. Continue to hold his home blood pressure medications at this time. (4) Hypothyroidism: Code(s): E03.9 - Hypothyroidism, unspecified Status: Acute Assessment and Plan: Continue levothyroxine. (5) Chronic, continuous use of opioids: Onset Date: Unknown Code(s): F11.90 - Opioid use, unspecified, uncomplicated Status: Acute Assessment and Plan: For chronic low back pain, which he uses fentanyl patch and [place] 10/325 mg p.r.n.. (6) Tobacco abuse: Onset Date: Unknown Code(s): Z72.0 - Tobacco use Status: Acute Assessment and Plan: Smoking cessation is encouraged. He declines the need for a nicotine patch at this juncture. Time Spent With Patient Time with patient: 25 - 35 minutes Subjective Date/time seen: 07/27/19 10:39 Interval history: Date of service 07/27/2019: The patient reports being in some pain since his surgery yesterday but is overall feeling slightly better. He states at home he takes [place] 10/325 mg 5 times a day as well as fentanyl patches to his back for his chronic back pain and here he is only receiving [place] 7.5/325 mg and he does not feel like his pain is under control. He otherwise was able to tolerate his clear liquid diet this morning. He denies any bowel movements or passing gas this morning. He does report increased belching though. He does report some phlegm in his throat this morning along w
[2019-07-27] MEDS: TAMSULOSIN HCL 0.4 MG CAPSULE PO (11:54)
[2019-07-27] MEDS: LACTATED RINGERS 1,000 ML 100 ML IV CONT (11:57)
[2019-07-27] MEDS: LORAZEPAM 0.5 MG TABLET PO ×2 (14:04→20:19)
[2019-07-27] MEDS: MAG HYDROX/AL HYDROX/SIMETH 30 ML UDC PO ×2 (14:42→20:19)
[2019-07-27] MEDS: KCL 20MEQ/0.9% SOD CHL 1,000 ML 150 ML IV CONT (18:35)
[2019-07-27] MEDS: SENNA/DOCUSATE SODIUM TABLET 2 TAB PO (20:19)
[2019-07-28] MEDS: KCL 20MEQ/0.9% SOD CHL 1,000 ML 150 ML IV CONT ×2 (01:03→09:12)
[2019-07-28] MEDS: ONDANSETRON INJ 4 MG/2 ML VIAL IV PUSH ×4 (04:20→22:49)
[2019-07-28 05:07] LABS: Basophils Percent Auto 0.1 % (0.2-1.2); Eosinophils Absolute Auto 0.1 K/mm3 (0-0.3); Eosinophils Percent Auto 1.2 % (0-4.4); Hematocrit 30.6 % (42.0-52.0); Hemoglobin 10.3 g/dL (14.0-18.0); Immature Granulocyte Absolute 0.03 K/mm3 (0.00-0.031); Immature Granulocyte Percent A 0.3 % (0-0.5); Lymphocytes Absolute Auto 0.45 K/mm3 (0.9-3.2); Lymphocytes Percent Auto 4.6 % (18.3-44.2); Mean Corpuscular HGB Conc 33.7 g/dl (32-36); Mean Corpuscular Hemoglobin 30.3 pg (26-34); Mean Platelet Volume 9.4 fl (7.4-10.4); Monocytes Absolute Auto 0.4 K/mm3 (0.1-0.6); Monocytes Percent Auto 4.4 % (2.6-8.5); Neutrophils Absolute Auto 8.7 K/mm3 (1.3-6.7); Neutrophils Percent Auto 89.4 % (45.5-73.1); Platelet Count Result 306 k/mm3 (150-375); Red Cell Distribution Width 13.2 % (11.5-14.5); White Blood Count 9.8 K/mm3 (4.5-10.0)
[2019-07-28 05:17] LABS: Blood Urea Nitrogen 11 mg/dL (9-20); Calcium 8.6 mg/dL (8.4-10.2); Carbon Dioxide 28 mmol/L (22-30); Chloride 98 mmol/L (98-107); Estimated CRCL calculation 102 ml/min; Estimated Glomerular Filt Rate > 60; Glucose 110 mg/dL (75-110); Potassium 3.9 mmol/L (3.4-5.0); Sodium 131 mmol/L (137-145)
[2019-07-28 06:00] VITALS: BP 144/81; PULSE 108; RESP 16; TEMP 36.9; O2SAT 93
[2019-07-28 08:20] VITALS: BP 142/84; PULSE 104; RESP 18; TEMP 36.8; O2SAT 92
[2019-07-28] MEDS: ENOXAPARIN 40 MG/0.4 ML SYRINGE SUB-Q (09:13)
[2019-07-28] MEDS: MORPHINE SULFATE 4 MG/ML INJ IV PUSH ×2 (09:26→14:30)
--- NOTE | 2019-07-28 11:20 | PM.PNGS ---
Progress Note: A&P Assessment and Plan (1) Acute appendicitis with perforation, generalized peritonitis, and gangrene, without abscess: Onset Date: ~07/25/19 Code(s): K35.20 - Acute appendicitis with generalized peritonitis, without abscess Status: Acute Assessment and Plan: Patient feeling nauseous and bloated today with an episode of vomiting overnight. He has likely developed an ileus. We will put the patient back on clear liquids and provide antiemetics PRN. Will give a dulcolax suppository x 1 today and continue the Miralax if he is able to tolerate oral intake later today. Continue to monitor - I discussed with the patient that we may need to consider an NG tube if nausea/vomiting persists or worsens and he is unable to tolerate a diet. Continue IV Zosyn. Will plan to eventually switch to oral antibiotic therapy closer to discharge. BP improved and stable now with good urine output. (2) Hypokalemia: Onset Date: ~07/27/19 Code(s): E87.6 - Hypokalemia Status: Acute Assessment and Plan: K 3.9 today. Continue to monitor. (3) Tobacco abuse: Onset Date: Unknown Code(s): Z72.0 - Tobacco use Status: Acute Assessment and Plan: Patient has p.r.n. nicotine patches. Encouraged cessation. (4) Chronic, continuous use of opioids: Onset Date: Unknown Code(s): F11.90 - Opioid use, unspecified, uncomplicated Status: Acute Assessment and Plan: Patient has a fentanyl patch that would be due to be changed today. (5) Smoker unmotivated to quit: Onset Date: Unknown Code(s): F17.200 - Nicotine dependence, unspecified, uncomplicated Status: Acute (6) Urinary retention: Code(s): R33.9 - Retention of urine, unspecified Status: Acute Assessment and Plan: Potter catheter in place and Flomax initiated. Good urine output. Management per Hospitalist. Additional Plan Encouraged the patient to be up to chair with meals and walk in the halls again at least 3 times today. Discussed the plan of care and formulated plan of care with Dr. Vasquez. Subjective Subjective Date/Time Seen: 07/28/19 09:20 Post Op day: 2 (lap appy) Patient reports: still having pain, flatus, no bowel movement, nausea and vomiting ( x 1 overnight) Interval history: Reports feeling nauseated this morning and had one episode of vomiting overnight. Reports the nausea started yesterday evening. Reports small amount of flatus today but no BM yet since admission. Reports abdominal pain and bloating. No other complaints at this time. Reports walking the halls three times yesterday. Review of Systems Review of Systems: All systems reviewed & are unremarkable except as noted in HPI and below Cardiovascular: Cardiovascular: Reports no additional cardiovascular complaints, Denies chest pain, Denies leg edema and Denies lightheadedness Respiratory: Respiratory: Reports no additional respiratory complaints, Denies cough, Denies dyspnea and Denies wheezing Comments: Reports feeling difficult to take a deep breath due to abd distention but no shortness of breath at rest or with activity. Gastrointestinal: Gastrointestinal: Reports as per HPI, Reports abdominal pain, Reports bloating, Reports nausea and Reports vomiting Genitourinary: Genitourinary: Reports no additional male genitourinary complaints Comments: Potter in place. Exam Const: General: no acute distress, alert, awake and uncomfortable Orientation/consciousness: patient oriented x3 Resp: Effort & Inspection: normal respiratory effort, able to speak in complete sentences and no respiratory distress Auscultation: rales bilateral Cardio: Rate: tachycardic (mild) Rhythm: regular rhythm GI: Inspection: distended and incision (abd incisions c/d/i, healing as expected) GI Palp: Yes Firmness to palpation present (GI), Yes Tenderness to palpation present (GI) (diffusely tender) and No Guarding due to pa
[2019-07-28] MEDS: LEVOTHYROXINE SODIUM 50 MCG TABLET PO (11:37)
[2019-07-28] MEDS: SERTRALINE HCL 50 MG TABLET 100 MG PO (11:37)
[2019-07-28] MEDS: PANTOPRAZOLE 40 MG TABLET PO ×2 (11:37→20:09)
[2019-07-28] MEDS: TAMSULOSIN HCL 0.4 MG CAPSULE PO (11:38)
[2019-07-28] MEDS: GABAPENTIN 100 MG CAPSULE 200 MG PO ×3 (11:38→20:10)
[2019-07-28] MEDS: LORATADINE 10 MG TABLET PO (11:38)
[2019-07-28] MEDS: BISACODYL 10 MG SUPPOSITORY RECTAL (11:42)
[2019-07-28] MEDS: MORPHINE SULFATE 2 MG/ML INJ IV PUSH (11:44)
[2019-07-28] MEDS: polyethylene glycoL 3350 17 GM POWD.PACK PO (11:54)
--- NOTE | 2019-07-28 13:36 | PM.IMPN ---
Progress Note: A&P Assessment and Plan (1) Acute appendicitis with localized peritonitis: Onset Date: ~07/25/19 Qualifiers: Appendicitis abscess presence: without abscess Appendicitis gangrene presence: unspecified whether gangrene present Appendicitis perforation presence: unspecified whether perforation present Qualified Code(s): K35.30 - Acute appendicitis with localized peritonitis, without perforation or gangrene Code(s): K35.30 - Acute appendicitis with localized peritonitis, without perforation or gangrene Status: Suspected Assessment and Plan: Post-operative day #2, status post laparoscopic appendectomy for acute perforated appendicitis with generalized peritonitis. STEPHEN Drain in place, with yellow/serosanguineous drainage noted. Surgery to manage STEPHEN drain, wound care, and pain control. Piperacillin/tazobactam day #3. Surgery has increased his diet to full liquids which he was tolerating well until yesterday evening when he began having some nausea and an episode of vomiting. Continue the patient's home [place] 10/325 p.r.n. Will continue managing his pain. Will continue monitoring his symptoms along with the surgical team. (2) Hypokalemia: Onset Date: ~07/27/19 Code(s): E87.6 - Hypokalemia Status: Acute Assessment and Plan: Potassium was low at 3.9 this morning. Stable. Will recheck potassium in the morning. (3) Hypertension: Onset Date: Unknown Code(s): I10 - Essential (primary) hypertension Status: Acute Assessment and Plan: Blood pressures were reviewed and they have been running soft postoperatively. Could be secondary to sedation and narcotics. Postop he received 1 liter normal saline bolus, and he received another 500 cc by the asset liability analyst. Today,his blood pressure improved to 144/81. Continue to hold his home blood pressure medications at this time. Continue to monitor blood pressure closely. (4) Hypothyroidism: Code(s): E03.9 - Hypothyroidism, unspecified Status: Acute Assessment and Plan: Continue levothyroxine. (5) Chronic, continuous use of opioids: Onset Date: Unknown Code(s): F11.90 - Opioid use, unspecified, uncomplicated Status: Acute Assessment and Plan: For chronic low back pain, which he uses fentanyl patch and [place] 10/325 mg p.r.n.. (6) Tobacco abuse: Onset Date: Unknown Code(s): Z72.0 - Tobacco use Status: Acute Assessment and Plan: Smoking cessation is encouraged. He declines the need for a nicotine patch at this juncture. Time Spent With Patient Time with patient: 25 - 35 minutes Subjective Date/time seen: 07/28/19 13:36 Interval history: Date of service 07/28/2019: The patient reports being in pain since his surgery. He feels he has abdominal distention, belching but does report passing some gas this morning. He has been having nausea and one episode of vomiting last night. He was tolerating a Full Liquid diet until last night. He denies any bowel movements. He does report some phlegm in his throat this morning along with some coughing, but denies any chest pain, shortness of breath, fever, chills, calf pain, leg swelling, lightheadedness, dizziness or any other symptoms at this time. Review of Systems Review of Systems: All systems reviewed & are unremarkable except as noted in HPI and below Exam Narrative: Exam Narrative: General: 58-year-old man laying mostly flat in bed, resting comfortably, appears tired and falling asleep on my exam. Appears comfortable. In no acute distress. Skin:
[2019-07-28 14:00] VITALS: BP 115/64; PULSE 94; RESP 17; TEMP 36.5; O2SAT 91
[2019-07-28] MEDS: FENTANYL 25 MCG/HR PATCH TRANSDERM (14:23)
[2019-07-28] MEDS: MAG HYDROX/AL HYDROX/SIMETH 30 ML UDC PO (16:24)
[2019-07-28] MEDS: KCL 20MEQ/0.9% SOD CHL 1,000 ML 125 ML IV CONT (18:10)
[2019-07-28 20:00] VITALS: PULSE 94; RESP 17; O2SAT 91
[2019-07-28] MEDS: SENNA/DOCUSATE SODIUM TABLET 2 TAB PO (20:09)
[2019-07-28 22:00] VITALS: BP 123/67; PULSE 96; RESP 20; TEMP 37.4; O2SAT 95
[2019-07-29] MEDS: KCL 20MEQ/0.9% SOD CHL 1,000 ML 125 ML IV CONT (02:51)
[2019-07-29 04:56] LABS: Basophils Percent Auto 0.4 % (0.2-1.2); Eosinophils Absolute Auto 0.2 K/mm3 (0-0.3); Eosinophils Percent Auto 1.9 % (0-4.4); Hematocrit 27.4 % (42.0-52.0); Hemoglobin 9.2 g/dL (14.0-18.0); Immature Granulocyte Absolute 0.03 K/mm3 (0.00-0.031); Immature Granulocyte Percent A 0.3 % (0-0.5); Lymphocytes Absolute Auto 0.68 K/mm3 (0.9-3.2); Lymphocytes Percent Auto 7.5 % (18.3-44.2); Mean Corpuscular HGB Conc 33.6 g/dl (32-36); Mean Corpuscular Hemoglobin 30.3 pg (26-34); Mean Corpuscular Volume 90.1 fl (80-100); Mean Platelet Volume 9.7 fl (7.4-10.4); Monocytes Absolute Auto 0.6 K/mm3 (0.1-0.6); Monocytes Percent Auto 6.8 % (2.6-8.5); Neutrophils Absolute Auto 7.5 K/mm3 (1.3-6.7); Neutrophils Percent Auto 83.1 % (45.5-73.1); Platelet Count Result 300 k/mm3 (150-375); Red Blood Count 3.04 M/mm3 (4.6-6.20); Red Cell Distribution Width 13.3 % (11.5-14.5)
[2019-07-29 05:10] LABS: Blood Urea Nitrogen 11 mg/dL (9-20); Calcium 7.8 mg/dL (8.4-10.2); Carbon Dioxide 24 mmol/L (22-30); Chloride 102 mmol/L (98-107); Estimated CRCL calculation 102 ml/min; Estimated Glomerular Filt Rate > 60; Glucose 95 mg/dL (75-110); Potassium 3.9 mmol/L (3.4-5.0); Sodium 130 mmol/L (137-145)
[2019-07-29 06:00] VITALS: BP 136/68; PULSE 92; RESP 18; TEMP 36.4; O2SAT 93
[2019-07-29] MEDS: LEVOTHYROXINE SODIUM 50 MCG TABLET PO (06:04)
[2019-07-29] MEDS: ONDANSETRON INJ 4 MG/2 ML VIAL IV PUSH (08:28)
[2019-07-29] MEDS: GABAPENTIN 100 MG CAPSULE 200 MG PO ×3 (08:30→16:47)
[2019-07-29] MEDS: PANTOPRAZOLE 40 MG TABLET PO (08:30)
[2019-07-29] MEDS: ENOXAPARIN 40 MG/0.4 ML SYRINGE SUB-Q (08:30)
[2019-07-29] MEDS: SERTRALINE HCL 50 MG TABLET 100 MG PO (08:30)
[2019-07-29] MEDS: LORATADINE 10 MG TABLET PO (08:30)
[2019-07-29] MEDS: TAMSULOSIN HCL 0.4 MG CAPSULE PO (08:30)
--- NOTE | 2019-07-29 09:49 | PM.IMPN ---
Progress Note: A&P Assessment and Plan (1) Acute appendicitis with localized peritonitis: Onset Date: ~07/25/19 Qualifiers: Appendicitis abscess presence: without abscess Appendicitis gangrene presence: unspecified whether gangrene present Appendicitis perforation presence: unspecified whether perforation present Qualified Code(s): K35.30 - Acute appendicitis with localized peritonitis, without perforation or gangrene Code(s): K35.30 - Acute appendicitis with localized peritonitis, without perforation or gangrene Status: Suspected Assessment and Plan: Post-operative day #3 lap appendectomy for acute perforated appendicitis with generalized peritonitis per Dr. Vasquez. STEPHEN Drain in place. Patient tolerating CLD thus far Surgery to manage STEPHEN drain, wound care, diet, and pain control. Piperacillin/tazobactam day #4. Will d/c fluids today as patient has positive fluid balance and tolerating diet this far Continue the patient's home fentanyl and [place] 10/325 p.r.n. Will continue monitoring his symptoms along with the surgical team. (2) Hypokalemia: Onset Date: ~07/27/19 Code(s): E87.6 - Hypokalemia Status: Acute Assessment and Plan: Potassium 3.9 this morning. Stable. Continue to trend potassium (3) Hypertension: Onset Date: Unknown Code(s): I10 - Essential (primary) hypertension Status: Acute Assessment and Plan: Blood pressures were reviewed and are 130s sys today; improvement but have been running a bit soft previous days - likely secondary to narcotics Continue to hold his home blood pressure medications at this time; consider resuming tomorrow if continued improvement Continue to monitor blood pressure closely. (4) Hypothyroidism: Code(s): E03.9 - Hypothyroidism, unspecified Status: Acute Assessment and Plan: Continue levothyroxine. (5) Chronic, continuous use of opioids: Onset Date: Unknown Code(s): F11.90 - Opioid use, unspecified, uncomplicated Status: Acute Assessment and Plan: For chronic low back pain, which he uses fentanyl patch and [place] 10/325 mg p.r.n.. (6) Tobacco abuse: Onset Date: Unknown Code(s): Z72.0 - Tobacco use Status: Acute Assessment and Plan: Smoking cessation is encouraged. Continue with nicotine patch prn Additional Plan Thank you for allowing us to participate in this patient's care. Please do not hesitate to contact us with any questions. We will follow with you. Subjective Date/time seen: 07/29/19 09:49 This is a Hospitalist Consult Progress Note Interval history: Patient is a 58 yo M with history of chronic low back pain with chronic opiod use, HTN, hypothyroidism and tobacco abuse who is here for acute appendicitis with perforation, peritonitis POD [address] Vasquez; Hospitalist service has been consulted for medical management of comorbid conditions. Patient states he is feeling better today. He has had non-bloody;non-melenic BMs since yesterday; he feels his distension/bloating/pain have improved since having BMs. He has had some slight nausea without vomiting this morning; tolerating CLD thus far. He otherwise has no complaints. Denies f/c/s, headaches, dizziness, lightheadedness, changes in v/h, cp/palpitations, sob/cough, v/d/c, hematuria, cloudy urine, calf pain/swelling. Review of Systems Review of Systems: All systems reviewed & are unremarkable except as noted in HPI and below Exam Narrative: Exam Narrative: Patient lying in semi-turner's position at time of visit Co
[2019-07-29 14:00] VITALS: BP 118/79; PULSE 88; RESP 18; TEMP 36.7; O2SAT 95
--- NOTE | 2019-07-29 14:17 | PM.PNGS ---
Progress Note: A&P Assessment and Plan (1) Acute appendicitis with perforation, generalized peritonitis, and gangrene, without abscess: Onset Date: ~07/25/19 Code(s): K35.20 - Acute appendicitis with generalized peritonitis, without abscess Status: Acute Assessment and Plan: POD#3 and continues to improve. WBC normal today and he remains afebrile. Ileus seems to be resolving and bowel function has returned. Will advance to full liquid diet and continue to monitor the patient. If the patient continues to do well today without any further complaints of nausea, we may be able to advance his diet to a soft diet for dinner and discharge this evening. Continue IV Zosyn until discharge and then will transition to oral antibiotics. Will leave STEPHEN drain in to monitor output until discharge. Pathology still pending - can be discussed as an outpatient. Discussed plan of care with the Hospitalist regarding possible discharge this evening versus tomorrow. They will d/c IV fluids and try to remove the Potter today and allow the patient to try voiding. Continue Flomax. Will reassess later today. (2) Hypokalemia: Onset Date: ~07/27/19 Code(s): E87.6 - Hypokalemia Status: Acute Assessment and Plan: K remains normal today. (3) Tobacco abuse: Onset Date: Unknown Code(s): Z72.0 - Tobacco use Status: Acute Assessment and Plan: Patient has p.r.n. nicotine patches. Encouraged cessation. (4) Chronic, continuous use of opioids: Onset Date: Unknown Code(s): F11.90 - Opioid use, unspecified, uncomplicated Status: Acute Assessment and Plan: Patient has a fentanyl patch that he uses for chronic pain. (5) Smoker unmotivated to quit: Onset Date: Unknown Code(s): F17.200 - Nicotine dependence, unspecified, uncomplicated Status: Acute (6) Urinary retention: Code(s): R33.9 - Retention of urine, unspecified Status: Acute Assessment and Plan: See plan above. Management per Hospitalist. Additional Plan Encouraged the patient to be up to chair with meals and walk in the halls again at least 3 times today. May be able to discharge later today if continues to do well and is able to urinate. If there are any concerns, then we will keep the patient overnight and reassess tomorrow. Will plan to send the patient home with Arnaldo and Evelyne on discharge for another 10 days. Discussed the patient's case and formulated plan of care with Dr. Vasquez. Subjective Subjective Date/Time Seen: 07/29/19 10:17 Post Op day: 3 (lap appy) Patient reports: no new complaints, feels better, tolerating liquids well, flatus and bowel movement Interval history: Patient reports feeling much better today. Reports bloating and nausea has improved significantly. Reports 4-5 bowel movements through the night and into this morning. Tolerating clear liquids. Reports having some nausea this morning that has since resolved, no vomiting since his bowels started moving last night. Reports that his abdominal pain is more just incisional pain today with movement and much improved compared to yesterday. No other complaints at this time. Review of Systems Review of Systems: All systems reviewed & are unremarkable except as noted in HPI and below Cardiovascular: Cardiovascular: Denies chest pain Respiratory: Respiratory: Denies chest congestion, Denies cough, Denies dyspnea and Denies dyspnea on exertion Gastrointestinal: Gastrointestinal: Reports as per HPI and Reports no additional gastrointestinal complaints Genitourinary: Comments: Potter in place. Exam Const: General: comfortable, no acute distress, alert and awake Orientation/consciousness: patient oriented x3 GI: Inspection: incision (Abdominal incisions clean/dry/intact.) and other (still midly distended, but much improved compared to yesterday) GI Palp: Yes Soft to palpation, Yes Tenderness to palpation p
--- NOTE | 2019-07-29 19:09 | PM.DS ---
DS: Diagnosis Admitting Diagnosis Admitting Diagnosis: Acute appendicitis with localized peritonitis, without perforation or gangrene Discharge Diagnosis (1) Acute appendicitis with perforation, generalized peritonitis, and gangrene, without abscess: Onset Date: ~07/25/19 Code(s): K35.20 - Acute appendicitis with generalized peritonitis, without abscess Status: Acute Assessment and Plan: Laparoscopic appendectomy on 07/26/[address] Vasquez. (2) Urinary retention: Code(s): R33.9 - Retention of urine, unspecified Status: Acute Assessment and Plan: Post-op urinary retention. Started on Flomax and treated with urinary catheter for a few days. This was removed prior to discharge and the patient was able to void. Will f/u with PCP. (3) Chronic low back pain: Onset Date: Unknown Code(s): M54.5 - Low back pain; G89.29 - Other chronic pain Status: Acute (4) Chronic, continuous use of opioids: Onset Date: Unknown Code(s): F11.90 - Opioid use, unspecified, uncomplicated Status: Acute Assessment and Plan: Uses a Fentanyl patch, [place], Tylenol, and Ibuprofen for pain. Has been tolerating his post-operative pain with current PRN pain regimen which is what he takes at home. Patient will continue to take his prescribed and over the counter medications for post-op pain as well and call if pain becomes uncontrolled. (5) Tobacco abuse: Onset Date: Unknown Code(s): Z72.0 - Tobacco use Status: Acute Assessment and Plan: Encouraged cessation. (6) Hypertension: Onset Date: Unknown Code(s): I10 - Essential (primary) hypertension Status: Acute Assessment and Plan: Remained stable. Hospitalist consulted and followed post-operatively. (7) Hypothyroidism: Code(s): E03.9 - Hypothyroidism, unspecified Status: Acute Assessment and Plan: Stable. Hospitalist consulted and followed post-operatively. (8) Anemia: Code(s): D64.9 - Anemia, unspecified Status: Acute DS: Summary Hospital Course Reason for hospitalization: Braxton Dyson is a 58-year-old man who presented to the emergency department via EMS for lower abdominal pain. His symptoms were ongoing for a few days prior to presenting to the ER. Workup in the emergency department showed acute appendicitis and cannot exclude perforation on the CT scan with a normal white blood cell count and tachycardia. The patient was admitted in this setting for the acute appendicitis to our service for surgical evaluation. Hospital Course: The patient was started on broad-spectrum IV antibiotics and taken to the OR On 07/26/19 for laparoscopic appendectomy (see full operative report). He was found to have perforated appendicitis with peritonitis. We continued IV antibiotics post-operatively. Consulted the Hospitalist service for post-operative medical management. The patient was started on a liquid diet and initially did well post-operatively without complaints of nausea or vomiting. He did have some hypotension initially post-operatively, likely related to the peritonitis, but this resolved with IV fluid hydration. POD2 the patient developed an ileus, which was treated with bowel rest, laxatives, suppository, and antiemetics. He did not require NG tube decompression. The ileus seemed to resolve and his bowel function returned. The patient then clinically began improving and was able to tolerate a diet. He was advanced to a soft diet, which he tolerated well prior to discharge. He also had a STEPHEN drain that was placed intraoperatively and the drainage was monitored. The output diminished and was serous, therefore it was removed prior to discharge as well. Another concern for this patient was pain control post-operatively due to his chronic opioid use with chronic back pain. The patient did well with pain control and was able to be placed back on his home regimen with the Fentanyl pa
== END 2019-07-29 20:30 | disposition home or self-care (01) | DRG 342 ==
LOC: ANHED 07:06 → ANHSURGERY 10:04 → ANH2MED 12:47
PROVIDERS: Emergency Medicine; Physician Assistant; Admitting Provider Surgery; Emergency Provider General Practice; PCP Family Medicine; Visit Provider Surgery
PROC: 0DTJ4ZZ Resection of Appendix, Percutaneous Endoscopic Approach (ICD-10-PCS; CPT 44970; principal; 2019-07-26 09:30)
DX: K35.20 Acute appendicitis with generalized peritonitis, without abscess (principal); K56.7 Ileus, unspecified; K91.89 Other postprocedural complications and disorders of digestive system; N99.89 Other postprocedural complications and disorders of genitourinary system; R33.8 Other retention of urine; I95.81 Postprocedural hypotension; M54.5 Low back pain; G89.29 Other chronic pain; F11.90 Opioid use, unspecified, uncomplicated; I10 Essential (primary) hypertension; E03.9 Hypothyroidism, unspecified; E87.6 Hypokalemia; D64.9 Anemia, unspecified; F32.9 Major depressive disorder, single episode, unspecified; M79.7 Fibromyalgia; K21.9 Gastro-esophageal reflux disease without esophagitis; F17.210 Nicotine dependence, cigarettes, uncomplicated; I34.0 Nonrheumatic mitral (valve) insufficiency
CPT/HCPCS: 36415; 51701; 71045; 74177; 80048; 80053; 81003; 83605; 83690; 83735; 84100; 85025; 85027; 85610; 85730; 87040; 88304; 93005; 96361; 96365; 96366; 96375; 96376; 99285; A9270; J0131; J0330; J1100; J1170; J1200; J1650; J2250; J2270; J2370; J2405; J2543; J2704; J2710; J3010; J3475; J3480; J7030; J7040; J7120; Q9967

== ENCOUNTER 2019-08-22 05:46 | Inpatient (IN) | payer MEDICARE, SELFPAY ==
--- NOTE | ~2019-08-22 | CT_ITS ---
EXAMINATION: CT abdomen pelvis w con DATE: 08/22/2019 06:58 INDICATION: Mid abdominal pain. TECHNIQUE: Computed tomography (CT) of the abdomen and pelvis was performed with 100 mL Omnipaque 350 intravenous contrast. Automated exposure control and iterative reconstruction technique were employe d. The dose-length product was 433.71 mGy-cm. COMPARISON: CT abdomen and pelvis 07/26/2019 FINDINGS: The visualized portions of the lung bases demonstrate mild atelectasis. No pleural effusion . The heart size is normal. There are coronary artery calcifications. No pericardial effusion. There is a 4 mm cyst in the liver. Calcifications in the liver consistent with old granulomatous disease. T he spleen, gallbladder, pancreas, adrenal glands, and left kidney are normal. There is cortical thinn ing of right kidney. There is a 5 mm cyst in right kidney. The prostate is mildly enlarged. There are changes of appendectomy. There is widespread wall thickening of small bowel. There are dilated loops of small bowel without focal transition point. There is wall thickening of the ascending colon, whic h is decompressed. There is a small volume of ascites. There are no pathologically enlarged lymph nod es. There is a mildly enlarged gastrohepatic lymph node. There are old healed fractures of the bilate ral superior and inferior pubic rami. There is an old right rib fracture. There are chronic bilateral L5 pars defects. There is 4 mm anterolisthesis of L5 on S1. There is severe lumbar spondylosis. IMPRESSION: 1. Enterocolitis. Dilated loops of small bowel, consistent with adynamic ileus. 2. Small volume of ascites. 3. Stable mildly enlarged gastrohepatic lymph node, likely reactive. Reviewed, dictated and finalized at location A.
[2019-08-22 05:44] VITALS: BP 141/83; PULSE 103; RESP 20; TEMP 37.3; O2SAT 98
--- NOTE | 2019-08-22 05:56 | ED.RECABL ---
HPI - Recheck/Abnormal Lab/Rx General Chief Complaint: Nausea/Vomiting/Diarrhea <Dianna Yeh MD - Last Filed: 08/27/19 14:37> Stated Complaint: n/v <Dianna Yeh MD - Last Filed: 08/27/19 14:37> Time Seen by Provider: 08/22/19 05:50 <Dianna Yeh MD - Last Filed: 08/27/19 14:37> History of Present Illness HPI narrative: Patient arrives via EMS for recurrent vomiting diarrhea and abdominal pain in the last week. He had a ruptured appendicitis 3 weeks ago, which was repaired here. His recovery was unremarkable until a week ago when he started with diarrhea, and then vomiting all week, and diarrhea again today. He denies fever chills or sweats. He has been losing weight since he has not been able to eat a week. He does not have a headache or cough. Does smoke cigarettes, does not drink alcohol or do drugs. <Dianna Yeh MD - Last Filed: 08/27/19 14:37> Initial visit (ago): day(s) <Dianna Yeh MD - Last Filed: 08/27/19 14:37> Related Data Home Medications: Home Medications Medication Instructions Recorded Confirmed Men's Multivitamin 1 tablet PO DAILY 07/26/19 08/22/19 acetaminophen [Tylenol] 500 mg PO BID PRN 07/26/19 08/22/19 aspirin 81 mg PO DAILY 07/26/19 08/22/19 fentanyl See Rx Instructions .ROUTE .COMPLEX 07/26/19 08/22/19 gabapentin 200 mg PO QID 07/26/19 08/22/19 hydrochlorothiazide 12.5 mg PO DAILY 07/26/19 08/22/19 hydrocodone-acetaminophen 1 tablet PO Q4H PRN 07/26/19 08/22/19 levothyroxine 50 mcg PO DAILY 07/26/19 08/22/19 loratadine 10 mg PO DAILY 07/26/19 08/22/19 losartan 50 mg PO DAILY 07/26/19 08/22/19 naproxen sodium [Aleve] 220 mg PO BID 07/26/19 08/22/19 sertraline 100 mg PO DAILY 07/26/19 08/22/19 albuterol sulfate See Rx Instructions .ROUTE 08/22/19 08/22/19 .COMPLEX PRN omeprazole magnesium [Prilosec OTC] 20 mg PO DAILY 08/22/19 08/22/19 <Dianna Yeh MD - Last Filed: 08/27/19 14:37> Allergies/Adverse Reactions: Allergies Allergy/AdvReac Type Severity Reaction Status Date / Time poison rubén extract Allergy Unknown Rash Verified 08/22/19 06:11 pollen extracts Allergy Unknown Congested Verified 08/22/19 06:11 <Dianna Yeh MD - Last Filed: 08/27/19 14:37> Review of Systems Review of Systems: Narrative: CONSTITUTIONAL: Denies fever, chills, or sweats. EYES: Denies visual changes, redness, or discharge. ENT: Denies rhinorrhea, congestion, sore throat, or otalgia. CARDIOVASCULAR: Denies chest pain, palpitations, or edema. RESPIRATORY: Denies cough or dyspnea. GASTROINTESTINAL: He has abdominal pain, nausea, vomiting, and diarrhea. GENITOURINARY: Denies dysuria or hematuria. SKIN: Denies rash or itching. MUSCULOSKELETAL: Denies back pain, joint pain, or myalgia. NEUROLOGIC: Denies headache, numbness, or weakness. PSYCHIATRIC: Denies anxiety or depression. <Dianna Yeh MD - Last Filed: 08/27/19 14:37> PMF Past Medical History Medical History: Medical History Chronic low back pain (Unknown) Chronic, continuous use of opioids (Unknown) Depression Fibromyalgia GERD (gastroesophageal reflux disease) Hypertension (Unknown) Hypothyroidism Mitral valve regurgitation Echocardiogram 01/21/2018 showed [id number] mitral valve regurgitation. Tobacco abuse (Unknown) <Dianna Yeh MD - Last Filed: 08/27/19 14:37> Surgical History Surgical History: Surgical History History of vocal cord polypectomy Status post laparoscopic appendectomy (07/26/19) Acute perforated appendicitis with generalized peritonitis. <Dianna Yeh MD - Last Filed: 08/27/19 14:37> Family History Family History: Family History (Updated 08/22/19 @ 19:39 by Quan Salvador MD) Father Diabetes mellitus Sibling Cancer Son Diabetes mellitus Other Depression Family history of arthritis Family history of mental disorder
[2019-08-22] MEDS: SODIUM CHLORIDE 0.9% IV 1,000 ML 999 ML IV CONT (06:03)
[2019-08-22] MEDS: ONDANSETRON INJ 4 MG/2 ML VIAL IV PUSH ×5 (06:06→22:10)
[2019-08-22 06:30] LABS: Basophils Percent Auto 0.2 % (0.2-1.2); Eosinophils Absolute Auto 0.1 K/mm3 (0-0.3); Hematocrit 33.3 % (42.0-52.0); Hemoglobin 11.2 g/dL (14.0-18.0); Lymphocytes Absolute Auto 0.56 K/mm3 (0.9-3.2); Lymphocytes Percent Auto 13.9 % (18.3-44.2); Mean Corpuscular HGB Conc 33.6 g/dl (32-36); Mean Corpuscular Hemoglobin 29.9 pg (26-34); Mean Platelet Volume 8.3 fl (7.4-10.4); Monocytes Absolute Auto 0.6 K/mm3 (0.1-0.6); Monocytes Percent Auto 15.6 % (2.6-8.5); Neutrophils Absolute Auto 2.8 K/mm3 (1.3-6.7); Neutrophils Percent Auto 68.3 % (45.5-73.1); Platelet Count Result 392 k/mm3 (150-375); Red Blood Count 3.74 M/mm3 (4.6-6.20); Red Cell Distribution Width 12.9 % (11.5-14.5)
[2019-08-22] MEDS: MORPHINE SULFATE 2 MG/ML INJ IV PUSH ×3 (06:37→20:36)
[2019-08-22 06:44] LABS: Alanine Aminotransferase 9 U/L (4-50); Albumin Level 3.7 g/dL (3.5-5.1); Alkaline Phosphatase 66 U/L (38-126); Aspartate Amino Transferase 18 U/L (17-59); Bilirubin,Total 0.6 mg/dL (0.2-1.3); Blood Urea Nitrogen 12 mg/dL (9-20); Carbon Dioxide 34 mmol/L (22-30); Chloride 99 mmol/L (98-107); Estimated CRCL calculation 94 ml/min; Estimated Glomerular Filt Rate > 60; Glucose 131 mg/dL (75-110); Potassium 3.2 mmol/L (3.4-5.0); Sodium 136 mmol/L (137-145)
[2019-08-22 07:17] VITALS: BP 138/80; PULSE 69; RESP 18; O2SAT 96
[2019-08-22 09:00] VITALS: BP 129/79; PULSE 104; RESP 20; TEMP 36.8; O2SAT 95
[2019-08-22 09:00] LABS: Add Urine Microscopic? YES; Amorphous Sediment Urine Moderate; Appearance Urine Cloudy (Clear); Bilirubin Urine Negative (Negative); Blood Urine Negative (Negative); Color Urine Yellow (Yellow); Glucose Urine UA Negative (Negative); Ketones Urine Negative (Negative); Leukocyte Esterase Ur Negative LEU/UL (Negative); Nitrate Urine Negative (Negative); Protein Urine Negative (Negative); Urobilinogen Urine Negative mg/dL (<2.0); WBC Urine 0-3 /hpf
--- NOTE | 2019-08-22 09:02 | PC.NURSE ---
This patient, Braxton Dyson, was admitted to [facility] Surg Room 321-01 on 08/22/2019 @ 0858. Patient/family oriented to hospital policies and general routines including ID bracelet, bed and alarms, visiting hours, pain management, procedures, bathroom and other care routines, personal items, smoking policy, room service/diet, and visiting hours. Valuables list has been completed. Information on how to activate the Rapid Response Team has been discussed. Patient/Family are encouraged to report perceived risks to care and to ask questions if they do not understand what they are told or what they should do.
[2019-08-22 09:03] LABS: Specific Grav Ur 1.034 (1.001-1.035)
[2019-08-22 09:17] VITALS: BMI 25.0
[2019-08-22] MEDS: LACTATED RINGERS 1,000 ML 125 ML IV CONT ×2 (10:57→20:37)
[2019-08-22] MEDS: MORPHINE SULFATE 4 MG/ML INJ IV PUSH ×3 (10:58→17:03)
[2019-08-22 14:00] VITALS: BP 107/70; PULSE 108; RESP 18; TEMP 36.7; O2SAT 95
--- NOTE | 2019-08-22 14:32 | PM.CNGS ---
Assessment and Plan Assessment and plan (1) Gastroenteritis: Code(s): K52.9 - Noninfective gastroenteritis and colitis, unspecified Status: Acute Assessment and Plan: likely viral in nature, cont supportive care, ADAT (2) Colitis: Code(s): K52.9 - Noninfective gastroenteritis and colitis, unspecified Status: Acute Assessment and Plan: exam benign, ADAT History of Present Illness Consult details Consult date: 08/22/19 Reason for consult: abdominal pain Requesting physician: Quan Salvador MD Narrative: Pt is a 58 y/o M presenting to ED c/o 1 wk h/o n/v, bloating. Pt reports he had been recovering uneventfully from appendectomy for per'd appendicitis 3 wks ago. Pt reports emesis x 2 over last week. Pt s abd pain, more uncomfortable from bloating. Pt reports decreased appetite but he has been eating. Pt reports largely normal bowel fxn until yest when he had diarrhea. Review of Systems Constitutional: Constitutional: Denies chills, Reports fatigue, Reports lethargy and Reports weakness Eyes: Eyes: Denies loss of vision ENT: Denies dysphagia, Denies headache(s), Denies hearing loss and Denies sore throat Cardiovascular: Cardiovascular: Denies chest pain, Denies syncope, Denies irregular heart rhythm, Denies leg edema and Denies dyspnea Respiratory: Respiratory: Denies cough and Denies dyspnea Gastrointestinal: Gastrointestinal: Reports abdominal pain, Reports bloating, Denies change in bowel habits, Denies change in stool character, Denies constipation, Denies dysphagia, Denies heartburn, Reports diarrhea, Reports nausea and Reports vomiting Genitourinary: Genitourinary: Denies dysuria, Denies urinary frequency and Denies urinary urgency Musculoskeletal: Musculoskeletal: Denies myalgias, Denies arthralgias and Denies muscle cramps Integumentary/Breasts: Skin/Breast: Denies non-healing lesions and Denies rash Neurologic: Denies syncope, Denies headache(s) and Denies loss of vision Psychiatric: Psychiatric: Reports no additional psychiatric complaints Endocrine: Endocrine: Denies change in body appearance and Denies fatigue Hematologic/Lymphatic: Hematologic/Lymphatic: Denies easy bleeding, Denies easy bruising and Denies lymphadenopathy PMFSH Past Medical History Medical History Chronic low back pain (Unknown) Chronic, continuous use of opioids (Unknown) Depression Fibromyalgia GERD (gastroesophageal reflux disease) Hypertension (Unknown) Hypothyroidism Mitral valve regurgitation Echocardiogram 01/21/2018 showed [id number] mitral valve regurgitation. Tobacco abuse (Unknown) Surgical History Surgical History History of vocal cord polypectomy Status post laparoscopic appendectomy (07/26/19) Acute perforated appendicitis with generalized peritonitis. Family History Family History Father Diabetes mellitus Sibling Cancer Other Depression Family history of arthritis Family history of mental disorder Family history of thyroid disease Hypertension Social History Social History Social History: The patient is and lives with his in [place]. They have 2 children, who he reports to be healthy. He is on disability. He smokes 2 packs of cigarettes per day and has for about 40 years. No alcohol or drug abuse. He designates his , Sulema, as his surrogate decision maker and he wishes to be a full code. Smoking packs per day: 2 Smoking cigarettes per day: 40.0 Years smoked: 25 Smoking pack-years: 50.00 Smoking status: Current every day smoker Tobacco type: cigarettes Second hand tobacco smoke exposure: Yes Alcohol intake: never Substance use: never Substance use type: does not use Spiritual care concerns: No
[2019-08-22] MEDS: NICOTINE (*PBKC) 21 MG PATCH 1 PATCH TRANSDERM (16:12)
--- NOTE | 2019-08-22 16:36 | PC.NURSE ---
Patient stated his Fentanyl patch on applied on 08/21/2019 around 1200. Intact on right upper arm.
--- NOTE | 2019-08-22 18:57 | PM.IMHP ---
H&P: HPI History of Present Illness Chief complaint: Enterocolitis/ileus Narrative: Braxton Dyson is a 58 year old male recently seen here for perforated appendicitis who returns with complaints of nausea, vomiting and diarrhea. Patient was hospitalized here on July 25 for acute appendicitis with perforation and peritonitis. He underwent laparoscopic appendectomy on that day and tolerated it well. He was treated with IV antibiotics. He did well and was discharged home on July 28. Since being home, patient states he has had no issues. Has been feeling well. Eating ?whenever I want.? He completed antibiotics around August 12. About 4 days later however, patient developed bloating. This was accompanied with nausea and vomiting. He had persistent nausea and bloating but was able to take in small amounts of food without vomiting. He was having normal bowel movements. He was not feeling lightheadedness with standing. He denies any fever or chills. No dysuria or hematuria. His urine had become concentrated and the he did notice decreased urine output. He denies any shortness of breath or cough. No chest pain or palpitations. A day prior to admission, patient was up ambulating to try to relieve the bloating. He then developed diarrheal stools and return of the nausea and vomiting. The bloating did get better briefly after the diarrhea. There was no melena, hematochezia or hematemesis. Patient does have well water that is not treated. He states his well water has not been treated for the past 25 years. He occasionally puts a quarter cup of bleach every couple months into the well water. Because of the persistent symptoms, patient presented to the emergency room for evaluation. Patient states he has been staying at home and there has been no significant exposure to COVID that he is aware. Room patient was mildly tachycardic. Renal function was normal. CT of the abdomen and pelvis showed enterocolitis and small volume of ascites. He was started on Zosyn and IV fluids and admitted for further care. Since admission he has felt better. He is tolerating the clear liquid diet here. Review of Systems Review of Systems: All systems reviewed & are unremarkable except as noted in HPI and below PMFSH Past Medical History Medical History Chronic low back pain (Unknown) Chronic, continuous use of opioids (Unknown) Depression Fibromyalgia GERD (gastroesophageal reflux disease) Hypertension (Unknown) Hypothyroidism Mitral valve regurgitation Echocardiogram 01/21/2018 showed [id number] mitral valve regurgitation. Tobacco abuse (Unknown) Surgical History Surgical History History of vocal cord polypectomy Status post laparoscopic appendectomy (07/26/19) Acute perforated appendicitis with generalized peritonitis. Family History Family History (Updated 08/22/19 @ 19:39 by Quan Salvador MD) Father Diabetes mellitus Sibling Cancer Son Diabetes mellitus Other Depression Family history of arthritis Family history of mental disorder Family history of thyroid disease Hypertension Social History Social History (Updated 08/22/19 @ 19:40 by Quan Salvador MD) Social History: The patient is and lives with his in [place]. They have 2 children. He is on disability. He smokes 2 packs of cigarettes per day and has for about 40 years. No alcohol or drug abuse. He designates his , Sulema, as his surrogate decision maker and he wishes to be a full code. Smoking packs per day: 2 Smoking cigarettes per day: 40.0 Years smoked: 25 Smoking pack-years: 50.00 Smoking status: Current every day smoker Tobacco type: cigarettes Second hand tobacco smoke exposure: Yes Alcohol intake: never Substance use: never Substance use type: does not use Spiritual care concerns: No Agree to bl
[2019-08-22] MEDS: GABAPENTIN 100 MG CAPSULE 200 MG PO (20:36)
[2019-08-22 22:00] VITALS: BP 110/67; PULSE 103; RESP 18; TEMP 36.9; O2SAT 95
[2019-08-23] MEDS: MORPHINE SULFATE 2 MG/ML INJ IV PUSH ×3 (00:21→09:03)
[2019-08-23] MEDS: ONDANSETRON INJ 4 MG/2 ML VIAL IV PUSH ×2 (04:06→09:02)
[2019-08-23] MEDS: LACTATED RINGERS 1,000 ML 125 ML IV CONT (05:40)
[2019-08-23] MEDS: LEVOTHYROXINE SODIUM 50 MCG TABLET PO (05:48)
[2019-08-23 06:00] VITALS: BP 101/64; PULSE 90; RESP 16; TEMP 36.8; O2SAT 98
[2019-08-23 07:55] LABS: Basophils Percent Auto 0.2 % (0.2-1.2); Eosinophils Absolute Auto 0.2 K/mm3 (0-0.3); Eosinophils Percent Auto 3.3 % (0-4.4); Hematocrit 28.6 % (42.0-52.0); Hemoglobin 9.6 g/dL (14.0-18.0); Immature Granulocyte Absolute 0.02 K/mm3 (0.00-0.031); Immature Granulocyte Percent A 0.4 % (0-0.5); Lymphocytes Percent Auto 20.3 % (18.3-44.2); Mean Corpuscular HGB Conc 33.6 g/dl (32-36); Mean Corpuscular Volume 89.4 fl (80-100); Monocytes Absolute Auto 0.7 K/mm3 (0.1-0.6); Monocytes Percent Auto 12.2 % (2.6-8.5); Neutrophils Absolute Auto 3.5 K/mm3 (1.3-6.7); Neutrophils Percent Auto 63.6 % (45.5-73.1); Platelet Count Result 364 k/mm3 (150-375); White Blood Count 5.4 K/mm3 (4.5-10.0)
[2019-08-23] MEDS: GABAPENTIN 100 MG CAPSULE 200 MG PO ×2 (09:06→13:56)
[2019-08-23] MEDS: SERTRALINE HCL 50 MG TABLET 100 MG PO (09:06)
[2019-08-23 09:07] LABS: Blood Urea Nitrogen 10 mg/dL (9-20); CRP 13.9 mg/dL (<1.0); Carbon Dioxide 29 mmol/L (22-30); Chloride 95 mmol/L (98-107); Estimated CRCL calculation 94 ml/min; Estimated Glomerular Filt Rate > 60; Glucose 118 mg/dL (75-110); Potassium 3.1 mmol/L (3.4-5.0); Sodium 131 mmol/L (137-145)
[2019-08-23] MEDS: LORATADINE 10 MG TABLET PO (09:07)
[2019-08-23] MEDS: ASPIRIN 81 MG ENTERIC TABLET PO (09:07)
[2019-08-23] MEDS: NICOTINE (*PBKC) 21 MG PATCH 1 PATCH TRANSDERM (09:07)
[2019-08-23] MEDS: TAMSULOSIN HCL 0.4 MG CAPSULE PO (09:07)
[2019-08-23] MEDS: PANTOPRAZOLE 40 MG TABLET PO (09:07)
[2019-08-23 09:47] LABS: Thyroid Stimulating Hormone Reflex 0.652 uIU/mL (0.465-4.68)
--- NOTE | 2019-08-23 11:33 | PM.PNGS ---
Progress Note: A&P Assessment and Plan (1) Enterocolitis: Code(s): K52.9 - Noninfective gastroenteritis and colitis, unspecified Status: Acute Assessment and Plan: likely viral, exam benign, ADAT, home soon Subjective Subjective Date/Time Seen: 08/23/19 11:33 feels good, no complaints, landy clears, +bowel fxn Review of Systems Constitutional: Constitutional: Denies fatigue and Denies weakness Cardiovascular: Cardiovascular: Denies chest pain and Denies palpitations Respiratory: Respiratory: Denies dyspnea Gastrointestinal: Gastrointestinal: Denies abdominal pain, Denies bloating, Denies constipation, Reports diarrhea, Denies nausea and Denies vomiting Exam Const: General: no acute distress Resp: Auscultation: clear to auscultation bilaterally Cardio: Rate: regular rate Rhythm: regular rhythm GI: Other: soft, sl dist, NT Objective Data Vital Signs Vital Signs: Vital Signs - 24 hr 08/22/19 14:00 08/22/19 22:00 08/23/19 06:00 Temperature 36.7 C 36.9 C 36.8 C Pulse Rate 108 H 103 H 90 Respiratory Rate 18 18 16 Blood Pressure 107/70 110/67 101/64 Pulse Oximetry 95 95 98 Intake/Output Intake/Output: Intake & Output 08/20/19 08/21/19 08/22/19 08/23/19 23:59 23:59 23:59 23:59 Intake Total 2520 1600 Output Total 100 Balance 2520 1500 Meds/Results Medications: Active Medications Generic Name Dose Route Start Last Admin Trade Name Freq PRN Reason Stop Dose Admin Acetaminophen 500 mg 08/22/19 19:55 Tylenol Tablet PO BID PRN Mild Pain (1-3) Hydrocodone Bitart/Acetaminophen 1 tab 08/22/19 19:55 08/23/19 04:06 Rozel 10-325 Mg PO 1 tab Q4H PRN Administration MODERATE PAIN Albuterol 1 - 4 puff 08/22/19 19:55 Proventil Hfa INHALATION Q4-6H PRN Shortness Of Breath Or Wheezing Aspirin 81 mg 08/23/19 09:00 08/23/19 09:07 Aspirin Ec PO 81 mg DAILY LOTTIE Administration Fentanyl 25 mcg 08/24/19 09:00 Duragesic 25 Mcg Patch TRANSDERM Q72H LOTTIE Gabapentin 200 mg 08/22/19 21:00 08/23/19 09:06 Neurontin PO 200 mg QID LOTTIE Administration Piperacillin/Tazobactam/Dextrose 3.375 gm in 50 mls @ 100 mls/hr 08/22/19 12:00 08/23/19 05:39 Zosyn 3.375 Gm/D5w 50ml Pm IVPB 100 mls/hr Q6H LOTTIE Administration Lactated Ringer's 1,000 mls @ 125 mls/hr 08/22/19 07:35 08/23/19 05:40 Lr - Lactated Ringers Iv IV CONT 125 mls/hr .Q8H LOTTEI Administration Levothyroxine Sodium 50 mcg 08/23/19 06:30 08/23/19 05:48 Synthroid PO 50 mcg DAILY@0630 LOTTIE Administration Loratadine 10 mg 08/23/19 09:00 08/23/19 09:07 Claritin PO 10 mg DAILY LOTTIE Administration Morphine Sulfate 2 mg 08/22/19 19:30 08/23/19 09:03 Morphine Sulfate Inj IV PUSH 2 mg Q2H PRN Administration Pain Rated 7-10 Nicotine 1 patch 08/22/19 15:27 08/23/19 09:07 Nicoderm Cq 21 Mg TRANSDERM 1 patch QAM LOTTIE Administration Ondansetron HCl 4 mg 08/22/19 07:32 08/23/19 09:02 Zofran Inj IV PUSH 4 mg Q4H PRN Administration Nausea Pantoprazole Sodium 40 mg 08/23/19 09:00 08/23/19 09:07 Protonix PO 40 mg QAM LOTTIE Administration Sertraline HCl 100 mg 08/23/19 09:00 08/23/19 09:06 Zoloft PO 100 mg DAILY LOTTIE Administration Tamsulosin HCl 0.4 mg 08/23/19 09:00 08/23/19 09:07 Flomax PO 0.4 mg QAM LOTTIE Administration Radiology Results: ITS Impressions Abdomen/Pelvis CT 08/22/19 06:59 IMPRESSION: 1. Enterocolitis. Dilated loops of small bowel, consistent with adynamic ileus. 2. Small volume of ascites. 3. Stable mildly enlarged gastrohepatic lymph node, likely reactive. Labs Labs: Laboratory Results - last 24 hr 08/23/19 08/23/19 08/23/19 07:26 07:26 07:26 WBC 5.4 RBC 3.20 L Hgb 9.6 L Hct 28.6 L MCV 89.4 MCH 30.0 MCHC 33.6 RDW 13.0 Plt Count 364 MPV 9.0 Immature Gran % (Auto) 0.4 Neut % (A
[2019-08-23] MEDS: POTASSIUM CHLORIDE 20 MEQ TABLET PO (11:56)
[2019-08-23 14:00] VITALS: BP 110/66; PULSE 77; RESP 16; TEMP 37.1; O2SAT 97
--- NOTE | 2019-08-23 15:10 | PM.DS ---
DS: Admitting Diagnosis Admitting Diagnosis Admitting Diagnosis: Noninfective gastroenteritis and colitis, unspecified DS: Discharge Diagnosis Discharge Diagnosis (1) Enterocolitis: Code(s): K52.9 - Noninfective gastroenteritis and colitis, unspecified Status: Acute Assessment and Plan: CT of the abdomen and pelvis on admission showing widespread wall thickening of small bowel. There are dilated loops of small bowel without focal transition point. There is wall thickening of the ascending colon, which is decompressed. Unclear this is related to his recent surgery but felt overall that this was related to a viral illness such as gastroenteritis. Does have thickening around the ascending colon but no evidence of perforation or abscess. He has leukopenia which would go along with a viral gastroenteritis. CRP was elevated at 14 but WBC remained normal. C diff seems less likely given the small bowel involvement. He does drink untreated well water which could also be the etiology of his infection. Patient clinically improved with IV fluids and supportive care. He was started on abx but not continued at discharge. Clear liquid diet started and advanced as he tolerated. (2) Hypertension: Onset Date: Unknown Code(s): I10 - Essential (primary) hypertension Status: Acute Assessment and Plan: Blood pressure remained well controlled during the hospital course. (3) Hypothyroidism: Code(s): E03.9 - Hypothyroidism, unspecified Status: Acute Assessment and Plan: TSH normal. We continued his Synthroid. (4) Chronic low back pain: Onset Date: Unknown Code(s): M54.5 - Low back pain; G89.29 - Other chronic pain Status: Acute Assessment and Plan: Patient with chronic low back pain on chronic narcotics for this. He is also on disability. We increased his activity level as he tolerated. (5) Acute appendicitis with perforation, generalized peritonitis, and gangrene, without abscess: Onset Date: ~07/25/19 Code(s): K35.20 - Acute appendicitis with generalized peritonitis, without abscess Status: Acute Assessment and Plan: As detailed above. Patient appeared to have had an excellent recovery after the surgery. More likely coincidental that he has developed gastroenteritis than a complication from the procedure. Appreciated General surgery input. (6) Tobacco abuse: Onset Date: Unknown Code(s): Z72.0 - Tobacco use Status: Acute Assessment and Plan: Patient has been educated about the benefits of smoking cessation. DS: Summary Hospital Course Reason for hospitalization: 58yo male with hx of recent perforated appendicitis s/p lap appy here for enterocolitis. Please see H&P for details. Hospital Course: As above Time Spent with Patient Time attestation: Total time spent providing and/or coordinating discharge services:32 minutes Time spent: Greater than 30 minutes Specific discharge activities: discussed with patient Exam Narrative: Exam Narrative: Tolerating oral intake. Slight nausea. No vomiting. Feels better. Afebrile. 110/66 Gen -NARD Chest - CTA bilaterally, nml RR CV - RRR S1/S2 Abd -soft. NT/ND Ext - No pedal edema Psych - Nml mood and affect Skin - Warm and dry DS: Data Data Completed and Pending Labs on day of discharge: Labs from last 24 hours 08/23/19 08/23/19 08/23/19 07:26 07:26 07:26 WBC 5.4 RBC 3.20 L Hgb 9.6 L Hct 28.6 L MCV 89.4 MCH 30.0 MCHC 33.6 RDW 13.0 Plt Count 364 MPV 9.0 Immature Gran % (Auto) 0.4 Neut % (Auto) 63.6 Lymph % (Auto) 20.3 [place] % (Auto) 12.2 H Eos % (Auto) 3.3 Baso % (Auto) 0.2 Lymph # (Auto) 1.10 [place] # (Auto) 0.7 H Eos # (Auto) 0.2 Baso # (Auto) 0.0 Abs Immat Gran (auto) 0.02 Absolute Neuts (auto) 3.5 Absolute Nucleated RBC 0.0 Nucleated RB
--- NOTE | 2019-09-04 07:48 | PC.NURSE ---
Girdia and [facility] are both negative. Dr. Modesto meek.
== END 2019-08-23 16:45 | disposition home or self-care (01) | DRG 392 ==
LOC: ANHED 07:14 → ANH3MEDSUR 08:02
PROVIDERS: Emergency Medicine; Admitting Provider Internal Medicine; Emergency Provider Emergency Medicine; PCP Family Medicine; Visit Provider Internal Medicine
DX: K52.9 Noninfective gastroenteritis and colitis, unspecified (principal); K56.0 Paralytic ileus; E03.9 Hypothyroidism, unspecified; I10 Essential (primary) hypertension; M54.5 Low back pain; G89.29 Other chronic pain; K21.9 Gastro-esophageal reflux disease without esophagitis; I34.0 Nonrheumatic mitral (valve) insufficiency; M79.7 Fibromyalgia; F17.210 Nicotine dependence, cigarettes, uncomplicated; Z79.82 Long term (current) use of aspirin
CPT/HCPCS: 36415; 74177; 80048; 80053; 81001; 84443; 85025; 86140; 87015; 87045; 87046; 87177; 87209; 87269; 87272; 87427; 96361; 96365; 96375; 96376; 99285; A9270; J2270; J2405; J2543; J7030; J7120; Q9967

== ENCOUNTER 2019-09-02 16:05 | Outpatient (CLI) | payer MEDICARE, SELFPAY ==
--- NOTE | ~2019-09-02 | CT_ITS ---
EXAMINATION: CT abdomen pelvis w con DATE: 09/02/2019 17:27 INDICATION: Elevated white blood cell count. Abnormal recent CT. TECHNIQUE: Computed tomography (CT) of the abdomen and pelvis was performed with 100 cc Omnipaque 350 intravenous contrast. The dose-length product was 355.82 mGy-cm. Automated exposure control and iter ative reconstruction technique were employed. COMPARISON: CT dated 08/22/2019 FINDINGS: Lung bases are unremarkable. Heart size normal. No significant pleural or pericardial effus ion. There is atherosclerosis of the aorta and coronary arteries. Small subcentimeter hypovascular lesion of the liver, likely benign cyst or hemangioma. Calcified gra nulomas in the liver. The spleen, pancreas, adrenal glands and kidneys are unremarkable. Gallbladder is present. There is improved diffuse small bowel wall thickening. There is improved thickening of th e colon. No obstruction. No free air. No lymphadenopathy. Old healed bilateral superior and inferior pubic rami fractures. Old right rib fracture. Chronic bilateral L5 pars defects. Severe lumbar spondy losis. IMPRESSION: 1. Improved enterocolitis compared with prior study. Reviewed, dictated and finalized at location A.
== END 2019-09-02 16:06 | disposition home or self-care (01) ==
PROVIDERS: PCP Family Medicine; Visit Provider Family Medicine
DX: R93.89 Abnormal findings on diagnostic imaging of other specified body structures (principal); D72.828 Other elevated white blood cell count; K52.9 Noninfective gastroenteritis and colitis, unspecified
CPT/HCPCS: 74177; Q9967

== ENCOUNTER 2020-07-30 12:32 | Outpatient (CLI) | payer MEDICARE, SELFPAY ==
--- NOTE | ~2020-07-30 | MR_ITS ---
EXAMINATION: MR cervical spine wo con DATE: 07/30/2020 13:16 INDICATION: Cervical spondylosis without myelopathy. TECHNIQUE: Magnetic resonance imaging (MRI) of the cervical spine was performed without intravenous c ontrast. Sequences included sagittal T2-weighted FSE, sagittal STIR FSE, sagittal T1-weighted FSE, ax ial MERGE, and axial T2-weighted FSE. COMPARISON: Cervical spine MRI 07/06/2018 FINDINGS: There is 5 mm anterolisthesis of C3 on C4. Vertebral body heights are normal. There is mode rately decreased disc height at C3-C4 and C5-C6, severely decreased disc height at C6-C7, and moderat sunita decreased disc height at C7-T1. There is increased T2-weighted signal intensity in the spinal cor d at C3-C4, consistent with myelomalacia. The following disc levels are specifically discussed: C2-C3: There is a central extrusion. There is no uncovertebral joint osteoarthritis. There is severe bilateral facet joint osteoarthritis. There is mild bilateral neural foraminal stenosis. There is mil d central canal stenosis. C3-C4: The disc does not extend beyond the endplate margin. There is moderate right and severe left u ncovertebral joint osteoarthritis. There is severe bilateral facet joint osteoarthritis. There is sev ere bilateral neural foraminal stenosis. There is severe central canal stenosis. C4-C5: The disc does not extend beyond the endplate margin. There is mild right uncovertebral joint o steoarthritis. There is moderate right and mild left facet joint osteoarthritis. There is mild right neural foraminal stenosis. There is no central canal stenosis. C5-C6: The disc is bulging. There is mild bilateral uncovertebral joint osteoarthritis. There is mitzi re left facet joint osteoarthritis. There is mild left neural foraminal stenosis. There is mild centr al canal stenosis. C6-C7: The disc is bulging. There is severe bilateral uncovertebral joint osteoarthritis. There is no facet joint osteoarthritis. There is mild bilateral neural foraminal stenosis. There is mild central canal stenosis. C7-T1: The disc is bulging. There is severe bilateral uncovertebral joint osteoarthritis. There is mo derate bilateral facet joint osteoarthritis. There is moderate right and mild left neural foraminal s tenosis. There is mild central canal stenosis. IMPRESSION: 1. Myelomalacia at C3-C4. 2. Severe cervical spondylosis with worsened central canal stenosis at C3-C4. Reviewed, dictated and finalized at location A.
== END 2020-07-30 12:33 ==
PROVIDERS: PCP Family Medicine
DX: M47.812 Spondylosis without myelopathy or radiculopathy, cervical region (principal); M47.817 Spondylosis without myelopathy or radiculopathy, lumbosacral region; M54.16 Radiculopathy, lumbar region; G95.89 Other specified diseases of spinal cord; M48.02 Spinal stenosis, cervical region
CPT/HCPCS: 72141

== ENCOUNTER 2020-08-02 13:34 | Outpatient (CLI) | payer MEDICARE, SELFPAY ==
--- NOTE | ~2020-08-02 | MR_ITS ---
EXAMINATION: MR lumbar spine wo con DATE: 08/02/2020 14:13 INDICATION: Low back pain. Lumbar radiculopathy. TECHNIQUE: Magnetic resonance imaging (MRI) of the lumbar spine was performed without intravenous con trast. Sequences included sagittal T2-weighted FSE, sagittal T2-weighted FS FSE, sagittal T1-weighted FSE, and axial T2-weighted FSE. COMPARISON: Lumbar spine MRI 07/06/2018 FINDINGS: There is 11 degrees dextroscoliosis of lumbar spine. There are chronic bilateral L5 pars de fects. There is 7 mm anterolisthesis of L5 on S1. There is mild chronic height loss of L5 vertebral b cy posteriorly. There is mildly decreased disc height at L1-L2 and severely decreased disc height fr om L2-L3 through L5-S1 with endplate remodeling. The distal spinal cord signal intensity is normal. T he conus medullaris is at L1. The following disc levels are specifically discussed: L1-L2: The disc is bulging. There is mild bilateral facet joint osteoarthritis. There is mild left ne ural foraminal stenosis. There is mild central canal stenosis. L2-L3: The disc is bulging. There is mild bilateral facet joint osteoarthritis. There is mild right a nd moderate left neural foraminal stenosis. There is mild central canal stenosis. L3-L4: The disc is bulging. There is mild bilateral facet joint osteoarthritis. There is moderate tiffanie ateral neural foraminal stenosis. There is mild central canal stenosis. L4-L5: The disc is bulging and has an annular fissure. There is severe right and moderate left facet joint osteoarthritis. There is moderate bilateral neural foraminal stenosis. There is mild central ca nal stenosis. L5-S1: The disc is bulging and has an annular fissure. There is severe bilateral facet joint osteoart hritis. There is mild bilateral neural foraminal stenosis. There is no central canal stenosis. IMPRESSION: 1. Severe lumbar spondylosis with interval worsening at L2-L3. 2. Chronic bilateral L5 pars defects with stable grade 1 anterolisthesis of L5 on S1. 3. Dextroscoliosis of lumbar spine. Reviewed, dictated and finalized at location B.
== END 2020-08-02 13:35 ==
PROVIDERS: PCP Family Medicine
DX: M47.812 Spondylosis without myelopathy or radiculopathy, cervical region (principal); M54.12 Radiculopathy, cervical region; M47.817 Spondylosis without myelopathy or radiculopathy, lumbosacral region; M54.16 Radiculopathy, lumbar region; M43.17 Spondylolisthesis, lumbosacral region; M41.86 Other forms of scoliosis, lumbar region
CPT/HCPCS: 72148

== ENCOUNTER 2021-02-07 10:25 | Emergency (ER) | payer MEDICARE, SELFPAY ==
[2021-02-07] VITALS (11 sets, daily range): BP systolic 116–140; BP diastolic 74–87; PULSE 93–98; RESP 15–18; O2SAT 94–97
--- NOTE | ~2021-02-07 | CT_ITS ---
EXAMINATION: CT diagnostic chest w con DATE: 02/07/2021 12:40 INDICATION: Dyspnea. History of lung cancer. TECHNIQUE: Computed tomography (CT) of the chest was performed with 75 cc Omnipaque 350 intravenous c ontrast. Automated exposure control and iterative reconstruction technique were employed. Exam dose: 205.40 mGy-cm total exam DLP. COMPARISON: 02/07/2021 2 view chest / portable AP chest FINDINGS: There is complete occlusion of the left lower lobe bronchus with complete consolidation of the left lower lobe. There is very prominent left perihilar, subcarinal lymphadenopathy, with promin ent lymphadenopathy extending into the aortopulmonary window, precarinal space, right hilum and right paratracheal area and right and left superior mediastinum. There is moderate left pleural effusion. No thoracic aortic aneurysm or dissection. Normal heart size. Coronary artery calcifications. No pericardial effusion. There is extensive patchy bilateral groundglass pulmonary infiltrate involving particularly the right upper lobe and left upper lobe and right basilar area. There is evidence of extensive hepatic metastases. 2.8 x 4.0 cm left adrenal mass lesion, most likely metastatic. Approximately 13 x 17 mm right adrenal mass, likely metastatic. Old un-united posterior right ninth rib fracture. Prominent degenerative disc disease of the lower cervical spine. Degenerative spurring of the thoraci c spine. No suspicious osteolytic or osteoblastic lesions are noted. IMPRESSION: Left lower lobe occlusion and postobstructive consolidation with extensive left hilar, s ubcarinal, aortopulmonary window, precarinal, right paratracheal and bilateral superior mediastinal m etastatic lymphadenopathy Extensive hepatic metastatic disease Probable bilateral adrenal metastases Extensive patchy groundglass infiltrates in the lungs Reviewed, dictated and finalized at Location A. Reviewed, dictated and finalized at location A. [employer] IMPRESSION: Left lower lobe occlusion and postobstructive consolidation with e xtensive left hilar, subcarinal, aortopulmonary window, precarinal, right parat kwame and bilateral superior mediastinal metastatic lymphadenopathy Extensive hepatic metastatic disease Probable bilateral adrenal metastases Extensive patchy groundglass infiltrates in the lungs
--- NOTE | ~2021-02-07 | XR_ITS ---
EXAMINATION: XR chest 2V DATE: 02/07/2021 11:06 INDICATION: Dyspnea. TECHNIQUE: Frontal and lateral views of the chest were obtained. COMPARISON: Chest single view 07/26/2019, CT abdomen and pelvis 09/02/2019 FINDINGS: There is a moderate-sized left pleural effusion. There are patchy airspace opacities in all right lung zones. There are airspace opacities in left mid and lower lung zones with a basilar predo minance. No pneumothorax. The heart size is obscured. IMPRESSION: 1. Diffuse lung disease, consistent with pneumonia versus pulmonary edema, new from 09/02/2019. 2. New moderate-sized left pleural effusion. Reviewed, dictated and finalized at location A. [employer]
--- NOTE | 2021-02-07 10:43 | ECG_ITS ---
Measurements Intervals [place] Rate: 99 P: 51 [place]: 172 QRS: 37 QRSD: 109 T: 118 QT: 339 QTc: 436 Interpretive Statements SINUS RHYTHM VENTRICULAR PREMATURE COMPLEX NONSPECIFIC T-WAVE ABNORMALITY- INF/LAT LEADS BASELINE ARTIFACT- I, II, AVR, AVL BORDERLINE ECG Electronically Signed On 02-07-2021 12:52:51 PSYCHIATRIC TECHNICIAN by Jakob Gomez D.O.
[2021-02-07 11:12] LABS: INR 1.2; Prothrombin Time 15.1 Seconds (11.1-14.7)
[2021-02-07 11:13] LABS: Partial Thromboplastin Time 36.1 SECONDS (22.3-36.8)
[2021-02-07 11:17] LABS: Anion Gap 8 mmol/L (8-16); Blood Urea Nitrogen 9 mg/dL (9-20); Calcium 9.1 mg/dL (8.4-10.2); Carbon Dioxide 28 mmol/L (22-30); Chloride 92 mmol/L (98-107); Estimated CRCL calculation 113 ml/min; Estimated Glomerular Filt Rate > 60; Glucose 114 mg/dL (65-110); Potassium 3.5 mmol/L (3.4-5.0); Sodium 128 mmol/L (137-145)
--- NOTE | 2021-02-07 11:17 | PC.NURSE ---
Bedside report to CLIFF Neri, to continue care.
[2021-02-07 11:26] LABS: Basophils Absolute Auto 0.1 K/mm3 (0.0-0.1); Basophils Percent Auto 0.5 % (0.2-1.2); Eosinophils Absolute Auto 0.2 K/mm3 (0-0.3); Eosinophils Percent Auto 1.5 % (0-4.4); Hematocrit 29.9 % (42.0-52.0); Hemoglobin 9.9 g/dL (14.0-18.0); Immature Granulocyte Absolute 0.05 K/mm3 (0.00-0.031); Immature Granulocyte Percent A 0.5 % (0-0.5); Lymphocytes Absolute Auto 1.39 K/mm3 (0.9-3.2); Lymphocytes Percent Auto 13.8 % (18.3-44.2); Mean Corpuscular HGB Conc 33.1 g/dl (32-36); Mean Corpuscular Hemoglobin 26.8 pg (26-34); Mean Platelet Volume 8.8 fl (7.4-10.4); Monocytes Absolute Auto 0.5 K/mm3 (0.1-0.6); Monocytes Percent Auto 5.2 % (2.6-8.5); Neutrophils Absolute Auto 7.9 K/mm3 (1.3-6.7); Neutrophils Percent Auto 78.5 % (45.5-73.1); Platelet Count Result 604 k/mm3 (150-375); Red Blood Count 3.69 M/mm3 (4.6-6.20); Red Cell Distribution Width 14.2 % (11.5-14.5); White Blood Count 10.1 K/mm3 (4.5-10.0)
[2021-02-07 11:28] LABS: NT Pro B Type Natriuretic Pept 362 pg/mL (5-100); Troponin I < 0.012 ng/mL (0.000-0.034)
[2021-02-07] MEDS: ALBUTEROL SULFATE NEB 2.5 MG/0.5 ML INH 5 MG INHALATION (12:39)
[2021-02-07] MEDS: ALBUTEROL SULFATE NEB 2.5 MG/0.5 ML INH 10 MG INHALATION (12:40)
--- NOTE | 2021-02-07 13:36 | ED.SOB ---
HPI - SOB/Dyspnea General Chief Complaint: Shortness of Breath/Dyspnea Stated Complaint: SOB Time Seen by Provider: 02/07/21 11:31 Source: patient and family Mode of arrival: EMS Limitations: no limitations History of Present Illness HPI Narrative: 60-year-old male Here for shortness of breath Patient has a longtime history of smoking 2 packs a day and has inhalers for COPD He was recently seen in his primary care office in [place] and had abnormal chest x-ray and subsequent chest CT scans and PET scans which all were done at [facility] either in [place] or in [place] I spoke to his doctor and basically he has been found to have a likely lung primary with endobronchial lesion, some obstruction and collapse distal to the lesion, and mets to the liver, adrenals, and possibly elsewhere He did complete an initial course of antibiotics He is set to be followed up by oncology either at [facility] or with cancer care specialists at [facility], sounds like he was brought here at EMS discretion because we are possibly marginally closer to his home He reports increasing shortness of breath which has been progressive for about a week and becoming more resistant to his home inhalers He has a cough which is nonproductive, and no fever He was reported to be hypoxic when EMS arrived In the last week he is cut his smoking down to half a pack a day from his baseline of 2 packs a day He has not received a Covid vaccination Related Data Home Medications Medication Instructions Recorded Confirmed Men's Multivitamin 1 tablet PO DAILY 07/26/19 08/22/19 acetaminophen [Tylenol] 500 mg PO BID PRN 07/26/19 08/22/19 aspirin 81 mg PO DAILY 07/26/19 08/22/19 fentanyl See Rx Instructions .ROUTE .COMPLEX 07/26/19 08/22/19 gabapentin 200 mg PO QID 07/26/19 08/22/19 hydrochlorothiazide 12.5 mg PO DAILY 07/26/19 08/22/19 hydrocodone-acetaminophen 1 tablet PO Q4H PRN 07/26/19 08/22/19 levothyroxine 50 mcg PO DAILY 07/26/19 08/22/19 loratadine 10 mg PO DAILY 07/26/19 08/22/19 losartan 50 mg PO DAILY 07/26/19 08/22/19 naproxen sodium [Aleve] 220 mg PO BID 07/26/19 08/22/19 sertraline 100 mg PO DAILY 07/26/19 08/22/19 albuterol sulfate See Rx Instructions .ROUTE 08/22/19 08/22/19 .COMPLEX PRN omeprazole magnesium [Prilosec OTC] 20 mg PO DAILY 08/22/19 08/22/19 vancomycin 125 mg capsule 125 mg PO Q6H 09/04/19 Allergies Allergy/AdvReac Type Severity Reaction Status Date / Time poison rubén extract Allergy Unknown Rash Verified 02/07/21 10:55 pollen extracts Allergy Unknown Congested Verified 02/07/21 10:55 Review of Systems Review of Systems: All systems reviewed & are unremarkable except as noted in HPI and below Constitutional: Constitutional: Reports no additional constitutional complaints, Denies chills, Reports fatigue, Denies fever(s), Denies headache(s) and Reports weakness Eyes: Eyes: Reports no additional eye complaints and Denies change in vision ENT: Denies headache(s) and Denies sore throat Cardiovascular: Cardiovascular: Denies chest pain, Denies radiating jaw, neck or arm pain and Denies dyspnea Respiratory: Respiratory: Reports chest congestion, Reports cough, Reports dyspnea and Reports wheezing Gastrointestinal: Gastrointestinal: Denies abdominal pain, Denies diarrhea and Denies vomiting Genitourinary: Genitourinary: Denies dysuria and Denies urinary frequency Musculoskeletal: Musculoskeletal: Reports myalgias, Denies deformity, Denies arthralgias, Denies joint swelling and Denies numbness Integumentary/Breasts: Skin/Breast: Denies rash and Denies wounds Neurologic: Denies headache(s), Denies focal weakness and Denies numbness Psychiatric: Psychiatric: Reports no additional psychiatric complaints Endocrine: Endocrine: Reports no additional endocrine complaints Hematologic/Lymphatic: Hematologic/Lymphatic: Reports no additional hematologic/lymphatic complaints Allergic/Immunologic: Allergic/Immunologic: Reports no ad
--- NOTE | 2021-02-07 13:51 | PC.NURSE ---
Called lab and spoke to Azul to add on Lev Random
[2021-02-07] MEDS: DOXYCYCLINE HYCLATE 100 MG TABLET PO (16:52)
--- NOTE | 2021-02-07 19:02 | PCCCNOTE ---
Late entry: Requested by Dr. Chang @ [phone] to meet with member's family about oxygen. Patient is refusing to be admitted. Spoke with Sulema outside of patient's room as droplet precautions. She is requesting portable oxygen for the patient to help him get home. She is willing to self pay, for what patient needs. She states that they have oxygen concentrator at home but it was a family member and there is a piece broken. Called to respiratory therapy, usually only see patient's once admitted as will need home O2 eval- concerned that patient is 4L at rest with covid pending. Can call back if patient continues to refuse if needed. Called to Provider plus they do not have any portable oxygen tanks and they close at 5pm, they need demographics prescription and credit card on file. Called to [facility] - they do not have any concentrators at this time. Called to [facility] they do not have any portable units and they can not do self-pay with Medicare according to guidelines. Dr. Chang updated. Advised to Sulema about noted above. Asked again if patient would consider admission but she said that he wants to go home. Called in later, Sulema has the small concentrator from home and asked how to use it, advised that medicare contact specialist would get the bedside RN.
[2021-02-08 19:35] LABS: SARS-CoV-2 RNA PCR Negative
== END 2021-02-07 17:50 | disposition home or self-care (01) ==
PROVIDERS: Emergency Medicine; Emergency Provider Emergency Medicine; PCP Family Medicine
DX: C34.90 Malignant neoplasm of unspecified part of unspecified bronchus or lung (principal); C78.7 Secondary malignant neoplasm of liver and intrahepatic bile duct; Z20.822 Contact with and (suspected) exposure to COVID-19; J44.9 Chronic obstructive pulmonary disease, unspecified; I10 Essential (primary) hypertension; E03.9 Hypothyroidism, unspecified; I34.0 Nonrheumatic mitral (valve) insufficiency; K21.9 Gastro-esophageal reflux disease without esophagitis; M79.7 Fibromyalgia; M54.50 Low back pain, unspecified; G89.29 Other chronic pain; F32.A Depression, unspecified; F17.210 Nicotine dependence, cigarettes, uncomplicated; I49.3 Ventricular premature depolarization; R94.31 Abnormal electrocardiogram [ECG] [EKG]
CPT/HCPCS: 36415; 71046; 71260; 80048; 82533; 83880; 84484; 85025; 85610; 85730; 93005; 94640; 96365; 99284; A9270; C9803; J1720; Q9967; U0003; U0005

== ENCOUNTER 2021-02-08 12:53 | Inpatient (IN) | payer MEDICARE, SELFPAY ==
[2021-02-08] VITALS (12 sets, daily range): BP systolic 118–144; BP diastolic 63–87; PULSE 77–100; RESP 16–20; TEMP 36.6–37.5; O2SAT 93–99; BMI 26.9
--- NOTE | ~2021-02-08 | XR_ITS ---
EXAMINATION: XR chest 1V portable DATE: 02/08/2021 13:51 INDICATION: Pleural effusion. TECHNIQUE: A single frontal view of the chest was obtained. COMPARISON: Chest CT 02/07/2021, chest 2 views 02/07/2021 FINDINGS: There is a moderate-sized left pleural effusion. There is mediastinal and bilateral hilar l ymphadenopathy. There is a left perihilar mass. There are airspace opacities in the perihilar regions and at left lung base. No pneumothorax. The heart size is normal. IMPRESSION: 1. Stable moderate-sized left pleural effusion. 2. Stable airspace opacities in the perihilar regions and at left lung base, likely a combination of pulmonary edema and left basilar pneumonia and atelectasis. 3. Left perihilar mass and mediastinal and bilateral hilar lymphadenopathy, consistent with primary b ronchogenic carcinoma and metastatic disease. Reviewed, dictated and finalized at location A. DRIVER IMPRESSION: 1. Stable moderate-sized left pleural effusion. 2. Stable airspace opacities in the perihilar regions and at left lung base, li devora a combination of pulmonary edema and left basilar pneumonia and atelectasi s. 3. Left perihilar mass and mediastinal and bilateral hilar lymphadenopathy, con sistent with primary bronchogenic carcinoma and metastatic disease.
--- NOTE | ~2021-02-08 | US_ITS ---
EXAMINATION: US thoracentesis DATE: 02/09/2021 13:43 INDICATION: pleural effusion TECHNIQUE: The procedure and its risks, benefits, and alternatives were discussed with the patient. P otential risks discussed included bleeding, infection, and pneumothorax. The patient understood the r isks and agreed to proceed. The skin was prepped and draped in sterile fashion. 1% lidocaine was used for local anesthesia. Under ultrasound guidance, a 5 Fr catheter with trochar was advanced into the left pleural effusion. Fluid was aspirated. The catheter was removed, and a dressing was applied. The re were no immediate complications. FINDINGS: Ultrasound images demonstrate a left pleural effusion and the catheter within the fluid. IMPRESSION: 1. Successful ultrasound-guided thoracentesis yielding 750 mL of opaque, red fluid. Reviewed, dictated and finalized at location A. LANE GAS TANK LINER ASSEMBLER IMPRESSION: 1. Successful ultrasound-guided thoracentesis yielding 750 mL of opaque, red f luid.
--- NOTE | ~2021-02-08 | US_ITS ---
EXAMINATION: US venous doppler LE EXAM DATE: 02/09/2021 12:38 INDICATION: Bilateral leg edema. TECHNIQUE: Multiple grayscale, color flow and Doppler images of the lower extremity deep venous syste ms bilaterally were obtained and reviewed. There is no prior study for comparison. FINDINGS: Right side: The right common femoral, femoral and profunda veins demonstrate normal color flow, respi ratory variation, augmentation and compressibility. Compressibility, color flow confirmed within the right popliteal, posterior tibial, peroneal, and greater saphenous veins. Left side: The left common femoral, femoral and profunda veins demonstrate normal color flow, respira tory variation, augmentation and compressibility. Compressibility, color flow confirmed within the l eft popliteal, posterior tibial, peroneal, and greater saphenous veins. IMPRESSION: No lower extremity deep venous thrombosis bilaterally. Reviewed, dictated and finalized at location B. ITALITY SPECIALIST
--- NOTE | ~2021-02-08 | XR_ITS ---
EXAMINATION: XR chest 1V portable DATE: 02/10/2021 08:52 INDICATION: Left pleural effusion. TECHNIQUE: A single frontal view of the chest was obtained. COMPARISON: Chest 2 views 02/09/2021 FINDINGS: There is a mass in left perihilar region. There is mediastinal lymphadenopathy. There is a diffuse interstitial pattern in the lungs. There are mild airspace opacities in right perihilar regio n and in left mid and lower lung zones. There is a small left pleural effusion. No pneumothorax. The heart size is normal. IMPRESSION: 1. Mass in left perihilar region and mediastinal lymphadenopathy, consistent with primary bronchogeni c carcinoma and metastatic disease. 2. Stable small left pleural effusion. 3. Stable diffuse lung disease, likely a combination of pulmonary edema and left basilar pneumonia an d atelectasis. Reviewed, dictated and finalized at location A. UCTION COST ESTIMATOR IMPRESSION: 1. Mass in left perihilar region and mediastinal lymphadenopathy, consistent wi th primary bronchogenic carcinoma and metastatic disease. 2. Stable small left pleural effusion. 3. Stable diffuse lung disease, likely a combination of pulmonary edema and lef t basilar pneumonia and atelectasis.
--- NOTE | ~2021-02-08 | US_ITS ---
EXAMINATION: US biopsy lymph node DATE: 02/09/2021 13:43 INDICATION: Left supraclavicular lymphadenopathy. TECHNIQUE: The procedure including the risks, benefits, and alternatives was discussed with the patie nt. Risks discussed included bleeding and infection. The patient understood the risks and agreed to p roceed. The skin overlying the left neck was prepped and draped in usual sterile fashion. Anesthetic was administered with 1% lidocaine subcutaneously. An 18 gauge core biopsy needle was then used to obtain 3 core biopsy specimens under continuous sonographic guidance. The entry site was cleaned and dressed. There were no immediate complications. FINDINGS: Ultrasound images demonstrate the needle in a 2.0 x 1.5 x 1.6 cm left supraclavicular lymph node. IMPRESSION: 1. Ultrasound-guided core needle biopsy of a left supraclavicular lymph node. Reviewed, dictated and finalized at location A. TECHNICIAN
--- NOTE | ~2021-02-08 | XR_ITS ---
EXAMINATION: [id number]_CR DATE: 02/09/2021 13:23 INDICATION: Left pleural effusion status post thoracentesis. TECHNIQUE: Frontal and lateral views of the chest were obtained. COMPARISON: Chest 2 views 02/10/2021 FINDINGS: There is a mass in left perihilar region. There is mediastinal lymphadenopathy. There are a irspace opacities in left perihilar region and at left lung base. There are mild airspace opacities i n all right lung zones. There is a small left pleural effusion. No pneumothorax. The heart size is no rmal. IMPRESSION: 1. Small left pleural effusion with improvement status post thoracentesis. 2. Mass in left perihilar region and mediastinal lymphadenopathy, consistent with primary bronchial c arcinoma and metastatic disease. 2. Diffuse right lung disease and airspace opacities in left perihilar region and left lung base with mild worsening on the right, likely a combination of asymmetric pulmonary edema and left basilar pne umonia and atelectasis. Reviewed, dictated and finalized at location A. LATORY COMPLIANCE MANAGER IMPRESSION: 1. Small left pleural effusion with improvement status post thoracentesis. 2. Mass in left perihilar region and mediastinal lymphadenopathy, consistent wi th primary bronchial carcinoma and metastatic disease. 2. Diffuse right lung disease and airspace opacities in left perihilar region a nd left lung base with mild worsening on the right, likely a combination of asy mmetric pulmonary edema and left basilar pneumonia and atelectasis.
--- NOTE | 2021-02-08 13:01 | ECG_ITS ---
Measurements Intervals [place] Rate: 97 P: 62 MS: 164 QRS: 36 QRSD: 110 T: 91 QT: 315 QTc: 402 Interpretive Statements SINUS RHYTHM NONSPECIFIC T-WAVE ABNORMALITY- DIFFUSE LEADS BASELINE ARTIFACT- I, II, III, AVR, AVL, AVF, V2-V6 ABNORMAL ECG Electronically Signed On 02-08-2021 13:06:47 PRINTING PRESS MACHINE OPERATOR by Jakob Gomez D.O.
[2021-02-08] MEDS: IPRATROPIUM BR 0.02% INH SOLN 0.5 MG/2.5 ML VIAL INHALATION ×3 (13:43→20:29)
[2021-02-08] MEDS: ALBUTEROL SULFATE NEB 2.5 MG/0.5 ML INH 5 MG INHALATION ×3 (13:43→20:29)
[2021-02-08 13:44] LABS: Basophils Percent Auto 0.2 % (0.2-1.2); Eosinophils Percent Auto 0.2 % (0-4.4); Hematocrit 30.4 % (42.0-52.0); Immature Granulocyte Absolute 0.06 K/mm3 (0.00-0.031); Immature Granulocyte Percent A 0.6 % (0-0.5); Lymphocytes Absolute Auto 1.07 K/mm3 (0.9-3.2); Lymphocytes Percent Auto 10.4 % (18.3-44.2); Mean Corpuscular HGB Conc 32.9 g/dl (32-36); Mean Corpuscular Hemoglobin 26.4 pg (26-34); Mean Corpuscular Volume 80.2 fl (80-100); Mean Platelet Volume 8.5 fl (7.4-10.4); Monocytes Absolute Auto 0.5 K/mm3 (0.1-0.6); Monocytes Percent Auto 4.8 % (2.6-8.5); Neutrophils Absolute Auto 8.6 K/mm3 (1.3-6.7); Neutrophils Percent Auto 83.8 % (45.5-73.1); Platelet Count Result 632 k/mm3 (150-375); Red Blood Count 3.79 M/mm3 (4.6-6.20); Red Cell Distribution Width 14.3 % (11.5-14.5); White Blood Count 10.3 K/mm3 (4.5-10.0)
[2021-02-08 13:56] LABS: Anion Gap 9 mmol/L (8-16); Blood Urea Nitrogen 10 mg/dL (9-20); Calcium 8.8 mg/dL (8.4-10.2); Carbon Dioxide 29 mmol/L (22-30); Chloride 89 mmol/L (98-107); Estimated CRCL calculation 108 ml/min; Estimated Glomerular Filt Rate > 60; Glucose 173 mg/dL (65-110); Potassium 3.3 mmol/L (3.4-5.0); Sodium 127 mmol/L (137-145)
[2021-02-08 14:02] LABS: INR 1.2; Prothrombin Time 14.7 Seconds (11.1-14.7)
--- NOTE | 2021-02-08 15:54 | ED.SOB ---
HPI - SOB/Dyspnea General Chief Complaint: Shortness of Breath/Dyspnea Stated Complaint: Diff breathing Time Seen by Provider: 02/08/21 13:06 Source: patient Mode of arrival: EMS Limitations: no limitations History of Present Illness HPI Narrative: 60-year-old male with shortness of breath Mostly see my ER note from yesterday about this exact same thing Yesterday patient was very adamant about returning home despite being advised at great length that it was unlikely he is going to be able to pull together medical equipment such as nebulizers and oxygen concentrator's, and his intention then was to be followed up as per plan with oncology at either [facility] in [place] or at [facility] in [place] [employer] Indeed he was apparently unable to get respiratory equipment in a timely way and found that his albuterol inhaler was not up to the task and request to be brought back here via EMS today Not much else has changed since then, and the Covid PCR is still pending Related Data Home Medications Medication Instructions Recorded Confirmed Men's Multivitamin 1 tablet PO DAILY 07/26/19 08/22/19 acetaminophen [Tylenol] 500 mg PO BID PRN 07/26/19 08/22/19 aspirin 81 mg PO DAILY 07/26/19 08/22/19 fentanyl See Rx Instructions .ROUTE .COMPLEX 07/26/19 08/22/19 gabapentin 200 mg PO QID 07/26/19 08/22/19 hydrochlorothiazide 12.5 mg PO DAILY 07/26/19 08/22/19 hydrocodone-acetaminophen 1 tablet PO Q4H PRN 07/26/19 08/22/19 levothyroxine 50 mcg PO DAILY 07/26/19 08/22/19 loratadine 10 mg PO DAILY 07/26/19 08/22/19 losartan 50 mg PO DAILY 07/26/19 08/22/19 naproxen sodium [Aleve] 220 mg PO BID 07/26/19 08/22/19 sertraline 100 mg PO DAILY 07/26/19 08/22/19 albuterol sulfate See Rx Instructions .ROUTE 08/22/19 08/22/19 .COMPLEX PRN omeprazole magnesium [Prilosec OTC] 20 mg PO DAILY 08/22/19 08/22/19 vancomycin 125 mg capsule 125 mg PO Q6H 09/04/19 Allergies Allergy/AdvReac Type Severity Reaction Status Date / Time poison rubén extract Allergy Unknown Rash Verified 02/07/21 10:55 pollen extracts Allergy Unknown Congested Verified 02/07/21 10:55 Review of Systems Review of Systems: All systems reviewed & are unremarkable except as noted in HPI and below Constitutional: Constitutional: Reports no additional constitutional complaints, Reports fatigue, Denies headache(s) and Reports weakness Eyes: Eyes: Reports no additional eye complaints and Denies change in vision ENT: Denies headache(s) and Denies sore throat Cardiovascular: Cardiovascular: Reports chest pain and Denies dyspnea Respiratory: Respiratory: Reports chest congestion, Reports cough, Reports dyspnea and Reports wheezing Gastrointestinal: Gastrointestinal: Denies abdominal pain, Denies diarrhea and Denies vomiting Genitourinary: Genitourinary: Denies dysuria and Denies urinary frequency Musculoskeletal: Musculoskeletal: Denies deformity, Denies arthralgias, Denies joint swelling and Denies numbness Integumentary/Breasts: Skin/Breast: Denies rash and Denies wounds Neurologic: Denies headache(s), Denies focal weakness and Denies numbness Psychiatric: Psychiatric: Reports no additional psychiatric complaints Endocrine: Endocrine: Reports no additional endocrine complaints Hematologic/Lymphatic: Hematologic/Lymphatic: Reports no additional hematologic/lymphatic complaints Allergic/Immunologic: Allergic/Immunologic: Reports no additional allergic/immunologic complaints PMFSH Past Medical History Medical History Anxiety Chronic low back pain (Unknown) Chronic, continuous use of opioids Depression Fibromyalgia Gastroesophageal reflux disease Hypertension Hypothyroidism Mitral valve regurgitation Echocardiogram on 01/21/2018 showed [id number] mitral valve regurgitation. Tobacco abuse Surgical History Surgical History History of vocal cord polypect
--- NOTE | 2021-02-08 16:00 | PC.NURSE ---
Attempted to call report on patient at this time. informed they would have to call back. Will continue to monitor.
--- NOTE | 2021-02-08 16:15 | PM.IMHP ---
H&P: HPI History of Present Illness Date/Time: 02/08/21 16:15 Chief Complaint: Shortness of breath. Narrative: This is a very pleasant 60-year-old male smoker with hypertension, hypothyroidism, depression, anxiety, and chronic back pain who presented to the emergency department earlier today via EMS from home for evaluation of shortness of breath. Approximately 2.5 months ago the patient developed a cough that has been pretty consistent since the onset, typically productive of yellowish-green sputum. Not long thereafter he began feeling fatigued when going about his day-to-day activities and he was concerned that perhaps he was getting sent and so he was seen by his primary care provider. At that time he was prescribed an Advair inhaler for suspected underlying COPD and a chest x-ray was also ordered. Not long after he began using the inhaler he started to feel short of breath which has gotten progressively worse on lesser and lesser exertion since that time. Chest x-ray demonstrated a left lower lobe mass and he had a chest CT done at [facility] in [place] approximately 3 weeks ago and a subsequent PET scan done at [facility] 2 weeks ago. The patient was told that he probably had lung cancer and that there was evidence of metastatic disease to the other lung, lymph nodes, liver, pancreas, and adrenal glands. He has an appointment on February 14 with a oncologist affiliated with [facility] to discuss further. Over the past 1 week he has felt increasingly tired, fatigued, and short of breath. He has also developed lower extremity edema and orthopnea and has to sit at nearly 90? in order to feel comfortable breathing. Yesterday he was feeling particularly bad and in fact he and his called 911. At that time he requested to go to [facility] in [place] as his workup has been through the [facility] system however the [place] ambulance service told him that they would prefer to take him to [place] for unclear reasons. A chest CT done yesterday showed a left lower lobe occlusion and postobstructive consolidation with extensive left hilar, subcarinal, aortopulmonary window, precarinal, right paratracheal, and bilateral superior mediastinal metastatic lymphadenopathy with extensive hepatic metastatic disease in probable bilateral adrenal metastases as well as extensive patchy ground-glass infiltrates in the lungs. There was no mention of pulmonary embolism. He did not wish to be admitted to the hospital at that time however he has been struggling at home since and he was brought back in today for further treatment and evaluation. He has not had a fever but reports frequent sweats. He continues to have a wet cough productive of greenish-yellow sputum. His appetite has been okay and he denies nausea and vomiting. He has no significant pain in his legs although they are uncomfortable due to the swelling. He denies chest pain and pleuritic pain. No syncope or near syncope. No headache, confusion, or focal weakness. Weight has been stable. Review of Systems Review of Systems: 12 systems were reviewed. He was vaccinated against COVID-19. He denies sick contacts. No sinus congestion, otalgia, rhinorrhea, or odynophagia. No dysphagia or concerns for aspiration. No history of venous thromboembolism. Except as documented, all other systems were reviewed and are negative. [facility] Past Medical History Medical History Anxiety Chronic low back pain (Unknown) Chronic, continuous use of opioids Depression Fibromyalgia Gastroesophageal reflux disease Hypertension Hypothyroidism Mitral valve regurgitation Echocardiogram on 01/21/2018 showed [id number] mitral valve regurgitation. Tobacco abuse Surgical History Surgical History History of vocal cord polypectomy Status post laparoscopic appendectomy (07/26/19) Acute perforated appendicitis with generaliz
--- NOTE | 2021-02-08 17:40 | PC.NURSE ---
This patient, Braxton Dyson, was admitted to [facility] Surg Room 326-01. Patient/family oriented to hospital policies and general routines including ID bracelet, bed and alarms, visiting hours, pain management, procedures, bathroom and other care routines, personal items, smoking policy, room service/diet, and visiting hours. Information on how to activate the Rapid Response Team has been discussed. Patient/Family are encouraged to report perceived risks to care and to ask questions if they do not understand what they are told or what they should do.
[2021-02-08 18:29] LABS: Alanine Aminotransferase 15 U/L (4-50); Alkaline Phosphatase 103 U/L (38-126); Aspartate Amino Transferase 39 U/L (17-59); Bilirubin,Total 0.4 mg/dL (0.2-1.3); Calcium 8.8 mg/dL (8.4-10.2); Glucose 116 mg/dL (65-110); Magnesium 1.8 mg/dL (1.6-2.3)
[2021-02-08 19:03] LABS: Chloride 91 mmol/L (98-107); Potassium 3.5 mmol/L (3.4-5.0); Sodium 129 mmol/L (137-145)
[2021-02-08 19:04] LABS: Albumin Level 3.4 g/dL (3.5-5.1); Anion Gap 7 mmol/L (8-16); Blood Urea Nitrogen 10 mg/dL (9-20); Carbon Dioxide 31 mmol/L (22-30); Estimated CRCL calculation 142 ml/min; Estimated Glomerular Filt Rate > 60
[2021-02-08 19:10] LABS: Thyroid Stimulating Hormone Reflex 0.368 uIU/mL (0.465-4.68)
[2021-02-08] MEDS: PANTOPRAZOLE 40 MG TABLET PO (21:27)
[2021-02-08] MEDS: GABAPENTIN 400 MG CAPSULE PO (21:27)
[2021-02-08] MEDS: guaiFENesin 12 HR 600 MG TABCR PO (21:27)
[2021-02-08] MEDS: oxyCODONE HCL (*CRX) 5 MG TAB IR PO (21:28)
[2021-02-08] MEDS: oxyCODONE/ACETAMINOPHEN (*CRX) 5-325 MG TABLET 1 TABLET PO (21:29)
[2021-02-08 21:34] LABS: Add Urine Microscopic? YES; Appearance Urine Cloudy (Clear); Bilirubin Urine Negative (Negative); Blood Urine Negative (Negative); Color Urine Yellow (Yellow); Glucose Urine UA Negative (Negative); Ketones Urine Trace mg/dL (Negative); Leukocyte Esterase Ur Negative LEU/UL (Negative); Mucus Urine Rare /lpf; Nitrate Urine Negative (Negative); Protein Urine Negative (Negative); Specific Grav Ur 1.023 (1.001-1.035)
[2021-02-08 22:04] LABS: Total Triiodothyronine (T3) 0.85 NG/ML (0.97-1.69)
[2021-02-09] VITALS (13 sets, daily range): BP systolic 118–141; BP diastolic 71–81; PULSE 97–105; RESP 16–22; TEMP 36.3–37.1; O2SAT 93–97
[2021-02-09 00:01] LABS: Creatinine Urine 123.5 mg/dL
[2021-02-09 00:13] LABS: Sodium Urine Random 75 meq/L
--- NOTE | 2021-02-09 00:24 | ECHO_ITS ---
Patient Info Name: Braxton Dyson Age: 60 years : 1960 Gender: Male Ht: 66 in Wt: 167 lbs BSA: 1.89 m2 HR: 86 bpm BP: 127 / 73 mmHg Technical Quality: Fair Exam Date: 02/09/2021 10:30 AM Exam Location: [facility] Pulmonary Exam Room: [facility] Patient Status: Inpatient Admit Date: 02/08/2021 Staff Ordering Physician: Molly Gee PA-C Swatch Maker: Sulema Alexander RDCS Attending Provider: Anjali Pink PA-C Referring Physician: Gerard CARLISLE; Exam Type: CA echo doppler color flow Study Info Indications - EDEMA PLEURAL EFFOSION HTN LUNG MASS Complete two-dimensional, color flow and Doppler transthoracic echocardiogram is performed. Summary 1. Complete two-dimensional, color flow and Doppler transthoracic echocardiogram is performed. 2. Left ventricular chamber dimension is normal. 3. Basal inferior and basal septal wall segments are hypokinetic. 4. Left ventricular systolic function is normal, estimated at 55-60%. 5. The left ventricular diastolic function is grade I diastolic dysfunction. 6. E/e' 13 is mildly elevated. 7. There is mild to moderate mitral valve regurgitation. 8. There is trace tricuspid valve regurgitation. 9. No pulmonary hypertension, estimated pulmonary arterial systolic pressure is 35 mmHg. Left Ventricle E/e' 13 is mildly elevated. Basal inferior and basal septal wall segments are hypokinetic. Left ventricular chamber dimension is normal. Left ventricular systolic function is normal, estimated at 55-60%. The left ventricular diastolic function is grade I diastolic dysfunction. Right Ventricle Right ventricular chamber dimension is not well visualized. Left Atria Left atrial chamber dimension is normal. Right Atria Right atrial chamber dimension is normal. Aortic Valve The aortic valve is probable trileaflet. There is no aortic valve stenosis. There is no aortic valve regurgitation. Pulmonic Valve There is no pulmonic regurgitation. Mitral Valve There is no mitral valve stenosis. There is mild to moderate mitral valve regurgitation. Tricuspid Valve There is trace tricuspid valve regurgitation. No pulmonary hypertension, estimated pulmonary arterial systolic pressure is 35 mmHg. Pericardium/Pleural There is no pericardial effusion. Inferior Vena Cava Normal inferior vena cava with >50% collapse upon inspiration consistent with normal right atrial pressure, 5 mmHg. Aorta The aortic root size at the sinus of Valsalva is normal. Left Ventricular Outflow Tract Name Value Normal LVOT 2D LVOT Diameter 2.1 cm LVOT Doppler LVOT Peak Gradient 3 mmHg LVOT Mean Gradient 2 mmHg LVOT VTI 17 cm LVOT VTI/AV VTI Ratio 1.0 LVOT Stroke Volume 59 ml LVOT CO 11.9 l/min LVOT CI 6.3 l/min/m2 Pulmonic Valve Name Value Normal
[2021-02-09] MEDS: ALBUTEROL SULFATE NEB 2.5 MG/0.5 ML INH 5 MG INHALATION (02:53)
[2021-02-09] MEDS: IPRATROPIUM BR 0.02% INH SOLN 0.5 MG/2.5 ML VIAL INHALATION ×3 (02:53→21:09)
[2021-02-09 03:16] LABS: Hematocrit 28.6 % (42.0-52.0); Hemoglobin 9.3 g/dL (14.0-18.0); Mean Corpuscular HGB Conc 32.5 g/dl (32-36); Mean Corpuscular Hemoglobin 26.2 pg (26-34); Mean Corpuscular Volume 80.6 fl (80-100); Mean Platelet Volume 8.3 fl (7.4-10.4); Platelet Count Result 610 k/mm3 (150-375); Red Blood Count 3.55 M/mm3 (4.6-6.20); Red Cell Distribution Width 14.5 % (11.5-14.5); White Blood Count 10.4 K/mm3 (4.5-10.0)
[2021-02-09 03:28] LABS: Anion Gap 7 mmol/L (8-16); Blood Urea Nitrogen 9 mg/dL (9-20); Calcium 8.6 mg/dL (8.4-10.2); Carbon Dioxide 31 mmol/L (22-30); Chloride 89 mmol/L (98-107); Estimated CRCL calculation 117 ml/min; Estimated Glomerular Filt Rate > 60; Glucose 153 mg/dL (65-110); Magnesium 1.7 mg/dL (1.6-2.3); Potassium 3.4 mmol/L (3.4-5.0); Sodium 127 mmol/L (137-145)
[2021-02-09 03:32] LABS: Albumin Level 3.3 g/dL (3.5-5.1); Cholesterol 118 mg/dL (0-200); INR 1.2; Lactate Dehydrogenase 762 U/L (313-618); Prothrombin Time 15.4 Seconds (11.1-14.7); Triglycerides 131 mg/dL (<150)
[2021-02-09] MEDS: LEVOTHYROXINE SODIUM 50 MCG TABLET PO (05:56)
[2021-02-09] MEDS: oxyCODONE/ACETAMINOPHEN (*CRX) 5-325 MG TABLET 1 TABLET PO ×3 (06:11→18:55)
[2021-02-09] MEDS: oxyCODONE HCL (*CRX) 5 MG TAB IR PO ×3 (06:13→18:55)
--- NOTE | 2021-02-09 09:45 | PM.CNPUL ---
Assessment and Plan Assessment and plan (1) Mass of left lung: Code(s): R91.8 - Other nonspecific abnormal finding of lung field Status: Acute Assessment and Plan: Patient with tobacco use, chronic cough and left lower lobe lung mass occluding his left lower lobe bronchus with consolidation, hepatic masses and bilateral adrenal masses with bilateral hilar and mediastinal lymphadenopathy and left supraclavicular lymphadenopathy. The patient tells me his PET scan was also positive in the lung and the liver but I do not have this report. I suspect this is metastatic lung cancer. I spoke with the radiologist on 02/08 and will proceed with biopsy of the left supraclavicular lymph node on 02/09. Oncology has been consulted. (2) Pneumonia: Code(s): J18.9 - Pneumonia, unspecified organism Status: Acute Assessment and Plan: Patient with bilateral infiltrates on his CT scan, cough with phlegm production, mild leukocytosis. COVID RT-CR is negative. I will order influenza swab. I agree with treatment with ceftriaxone and azithromycin (started 02/08) for community-acquired pneumonia. Currently patient is quiet 3 L nasal cannula oxygen with saturations 94%. Patient is scheduled to have a left thoracentesis and will follow the results of this test looking to determine if this effusion is a transudate, exudate or complicated pleural effusion. Will follow him clinically on these antibiotics. (3) COPD (chronic obstructive pulmonary disease): Code(s): J44.9 - Chronic obstructive pulmonary disease, unspecified Status: Acute Assessment and Plan: Patient is smoking history with dyspnea on exertion and improvement with albuterol in the past. PFT's from 09/03/2018 do not demonstrate any obstructive abnormality but I have none more recently. At this time he has bilateral expiratory wheezing and I will treat the patient for COPD exacerbation and will initiate Solu-Medrol 20 mg IV Q 6 hours and continue albuterol 2.5 mg neb q.6 hours and ipratropium 0.5 mg nebs q.6 hours. Will follow with you. History of Present Illness History of Present Illness Consult date: 02/09/21 Requesting physician: Molly Gee PA-C Reason for consult: lung mass Chief complaint: lung mass,collapsed 111 Narrative: 02/09/2021: This is a new pulmonary consult for left lung mass 60-year-old with a history of tobacco use, hypertension, hypothyroidism spinal disc injury and now with a left lower lobe lung mass, multiple hepatic masses, bilateral adrenal masses and left supraclavicular lymph nodes. patient states he was in his usual state of health until about 3 months ago when he developed a cough and yellow phlegm. Approximately 2 months ago he developed fatigue with no weight loss. A CT scan and CT scan were performed at [place] which demonstrated a left lower lobe lung mass, hepatic masses and bilateral adrenal masses. Patient states that he also had a a PET scan that demonstrated positive findings in the lung and the liver. He was scheduled to see an oncologist at [facility] on 02/14/2021. Patient developed worsening shortness of breath over the last week with no associated chest pain and he presented to the emergency department on 02/[address] scan in our facility demonstrating a left lower lobe lung mass with complete obstruction the left lower lobe, left pleural effusion, left perihilar hilar, subcarinal and bilateral mediastinal as well as right hilar and paratracheal lymphadenopathy. Multiple hepatic masses, 2.8 x 4.0 cm left adrenal mass and a 13 x 17 mm right adrenal mass. Patient also had patchy bilateral infiltrates in both upper lobes and the right basilar area. Since patient was worked up at an outside facility the plan was for him to follow-up with the oncologist on 02/14/2021. Patient was discharged from the emergency room but returned on the next day on 02/08 with continued s
[2021-02-09] MEDS: SERTRALINE HCL 50 MG TABLET PO ×2 (09:52→21:59)
[2021-02-09] MEDS: guaiFENesin 12 HR 600 MG TABCR PO ×2 (09:52→21:59)
[2021-02-09] MEDS: PANTOPRAZOLE 40 MG TABLET PO ×2 (09:52→21:59)
[2021-02-09] MEDS: GABAPENTIN 400 MG CAPSULE PO ×4 (09:52→21:59)
--- NOTE | 2021-02-09 11:52 | ECG_ITS ---
Measurements Intervals [place] Rate: 90 P: 33 DE: 168 QRS: 34 QRSD: 103 T: 87 QT: 341 QTc: 417 Interpretive Statements SINUS RHYTHM NONSPECIFIC T-WAVE ABNORMALITY- LAT/HIGH LAT LEADS BASELINE ARTIFACT- V1-V2 BORDERLINE ECG Electronically Signed On 02-09-2021 12:08:39 MANAGER OUTREACH by Jakob Gomez D.O.
[2021-02-09] MEDS: methylPREDNISolone SOD SUCC 40 MG VIAL 20 MG IV PUSH ×2 (13:20→17:07)
[2021-02-09 13:39] LABS: pH Pleural Fluid 7.447 (7.210-7.500)
--- NOTE | 2021-02-09 13:56 | PCRCNOTE ---
Past window of treatment time.
--- NOTE | 2021-02-09 14:04 | PM.IMPN ---
Progress Note: A&P Assessment and Plan (1) Acute respiratory failure with hypoxia: Code(s): J96.01 - Acute respiratory failure with hypoxia Status: Acute Assessment and Plan: Likely due to combination of pneumonia, pleural effusion, and lung cancer -continue oxygen for sats less than 90 -continue ceftriaxone and azithromycin for pneumonia coverage -plan for thoracentesis later today which will likely help -of an give him 1 dose of Lasix due to his hypervolemia and will see how he does -pulmonology consulted -pt is up to date with his flu shot but has not gotten the COVID vaccine. His COVID test was negative 02/07/21. (2) Pneumonia: Code(s): J18.9 - Pneumonia, unspecified organism Status: Acute Assessment and Plan: As above -continue ceftriaxone and azithromycin (3) Mass of left lung: Code(s): R91.8 - Other nonspecific abnormal finding of lung field Status: Acute Assessment and Plan: Awaiting biopsy of a left supraclavicular lymph node -Records have been requested from [facility] for review of those images that have been previously done as an outpatient. -patient has an upcoming appointment with an oncologist affiliated with [facility] on 02/14/2021. -plan discussed with Dr. Stevenson. Continue steroids, Mucinex, Atrovent and albuterol (4) Pleural effusion on left: Code(s): J90 - Pleural effusion, not elsewhere classified Status: Acute Assessment and Plan: Likely malignant effusion, thoracentesis has been ordered -echo reveals EF of 55-60% but does show hypokinetic regions of the inferior and basal septal wall -CHF appears less likely to be the cause of the pleural effusion but may a factor in his shortness of breath. Will give 1 dose of Lasix as stated above (5) Tobacco abuse: Code(s): Z72.0 - Tobacco use Status: Acute Assessment and Plan: Patient has been cutting back and now smokes about a pack a day -he would like a nicotine patch (6) Chronic low back pain: Onset Date: Unknown Code(s): M54.5 - Low back pain; G89.29 - Other chronic pain Status: Acute Assessment and Plan: Continue fentanyl patch and hydrocodone p.r.n. as needed (7) Chronic, continuous use of opioids: Code(s): F11.90 - Opioid use, unspecified, uncomplicated Status: Acute Assessment and Plan: Plan is as detailed above. Patient sees pain management. He has a history of spinal surgery and trauma (8) Hypertension: Code(s): I10 - Essential (primary) hypertension Status: Acute Assessment and Plan: Last blood pressure 141/81 -continue losartan -old hydrochlorothiazide due to hyponatremia (9) Hypothyroidism: Code(s): E03.9 - Hypothyroidism, unspecified Status: Acute Assessment and Plan: Continue levothyroxine -TSH low but T4 in normal range 1.9 (10) Electrolyte abnormality: Code(s): E87.8 - Other disorders of electrolyte and fluid balance, not elsewhere classified Status: Acute Assessment and Plan: Patient has hyponatremia at 127, likely due to cancer -urine sodium is high but the patient has been on hydrochlorothiazide -he is going to get a small Lasix due to his lower extremity swelling and possible edema on his chest x-ray. Will monitor his sodium during this -unknown baseline, await records (11) Hyperglycemia: Code(s): R73.9 - Hyperglycemia, unspecified Status: Acute Assessment and Plan: A1c 6.0 -patient will likely have hyperglycemia due to steroids (12) Chest pain: Code(s): R07.9 - Chest pain, unspecified Status: Acute Assessment and Plan: Very brief 8 second episode of squeezing/type chest pain reported by the patient. He said it was very minor and has not happened to him before. He had no shortness of breath, arm or jaw pain, or diaphoresis with this. E
[2021-02-09] MEDS: ALBUTEROL SULFATE NEB 2.5 MG/0.5 ML INH INHALATION ×2 (14:45→21:08)
[2021-02-09 15:00] LABS: Troponin I 0.015 ng/mL (0.000-0.034)
[2021-02-09] MEDS: NICOTINE (*PBKC) 21 MG PATCH 1 PATCH TRANSDERM (15:23)
[2021-02-09 16:01] LABS: Pleural fluid source Pleural fluid
[2021-02-09 16:02] LABS: Appearance Pleural Fluid Bloody (Clear); Color Pleural Fluid Red (Colorless)
[2021-02-09 16:03] LABS: Lymphocytes Pleural Fluid 64 %; Neutrophils Pleural Fluid 11 % (0-25)
[2021-02-09 16:04] LABS: Macrophages Pleural Fluid 21 %; Mesothelial Cells Pleural Flui 4 %
[2021-02-09] MEDS: FUROSEMIDE INJ 40 MG/4 ML VIAL 20 MG IV PUSH (17:10)
[2021-02-09 18:29] LABS: Troponin I 0.012 ng/mL (0.000-0.034)
[2021-02-10] VITALS (14 sets, daily range): BP systolic 106–129; BP diastolic 63–69; PULSE 92–105; RESP 18–20; TEMP 36.1–36.7; O2SAT 91–96
[2021-02-10] MEDS: methylPREDNISolone SOD SUCC 40 MG VIAL 20 MG IV PUSH ×2 (00:16→05:52)
[2021-02-10] MEDS: ALBUTEROL SULFATE NEB 2.5 MG/0.5 ML INH INHALATION ×4 (02:13→21:14)
[2021-02-10] MEDS: IPRATROPIUM BR 0.02% INH SOLN 0.5 MG/2.5 ML VIAL INHALATION ×4 (02:13→21:14)
[2021-02-10] MEDS: LEVOTHYROXINE SODIUM 50 MCG TABLET PO (05:54)
[2021-02-10 06:47] LABS: Hematocrit 28.9 % (42.0-52.0); Hemoglobin 9.4 g/dL (14.0-18.0); Mean Corpuscular HGB Conc 32.5 g/dl (32-36); Mean Corpuscular Hemoglobin 26.4 pg (26-34); Mean Corpuscular Volume 81.2 fl (80-100); Mean Platelet Volume 8.5 fl (7.4-10.4); Platelet Count Result 612 k/mm3 (150-375); Red Blood Count 3.56 M/mm3 (4.6-6.20); Red Cell Distribution Width 14.5 % (11.5-14.5); White Blood Count 10.8 K/mm3 (4.5-10.0)
[2021-02-10 06:56] LABS: Anion Gap 8 mmol/L (8-16); Blood Urea Nitrogen 9 mg/dL (9-20); Calcium 9.1 mg/dL (8.4-10.2); Carbon Dioxide 33 mmol/L (22-30); Chloride 91 mmol/L (98-107); Estimated CRCL calculation 117 ml/min; Estimated Glomerular Filt Rate > 60; Glucose 150 mg/dL (65-110); Potassium 3.9 mmol/L (3.4-5.0); Sodium 132 mmol/L (137-145)
[2021-02-10] MEDS: oxyCODONE HCL (*CRX) 5 MG TAB IR PO ×3 (08:39→19:28)
[2021-02-10] MEDS: oxyCODONE/ACETAMINOPHEN (*CRX) 5-325 MG TABLET 1 TABLET PO ×3 (08:40→19:28)
[2021-02-10] MEDS: fentaNYL (*CRX) 25 MCG PATCH TRANSDERM (08:41)
[2021-02-10] MEDS: GABAPENTIN 400 MG CAPSULE PO ×4 (08:43→21:00)
[2021-02-10] MEDS: LOSARTAN POTASSIUM 50 MG TABLET PO (08:43)
[2021-02-10] MEDS: guaiFENesin 12 HR 600 MG TABCR PO ×2 (08:43→21:00)
[2021-02-10] MEDS: PANTOPRAZOLE 40 MG TABLET PO ×2 (08:43→21:00)
[2021-02-10] MEDS: SERTRALINE HCL 50 MG TABLET PO ×2 (08:43→21:00)
--- NOTE | 2021-02-10 09:15 | PM.PNPUL ---
Progress Note: A&P Assessment and Plan (1) Mass of left lung: Code(s): R91.8 - Other nonspecific abnormal finding of lung field Status: Acute Assessment and Plan: 02/09 Patient with tobacco use, chronic cough and left lower lobe lung mass occluding his left lower lobe bronchus with consolidation, hepatic masses and bilateral adrenal masses with bilateral hilar and mediastinal lymphadenopathy and left supraclavicular lymphadenopathy. The patient tells me his PET scan was also positive in the lung and the liver but I do not have this report. I suspect this is metastatic lung cancer. I spoke with the radiologist on 02/08 and will proceed with biopsy of the left supraclavicular lymph node on 02/09. Oncology has been consulted. 02/10 patient had left supraclavicular lymph node biopsy and a left thoracentesis removed with removal of 750 mL of opaque red fluid. The pH was 7.45, cell differential was neutrophils 11%, lymphocytes 64% macrophages 21% mesothelial cells 4%. G stain showed moderate white blood cells and no organisms seen. Sed a spin of the pleural fluid demonstrates atypical cells with clusters suspicious for neoplasm. Remainder of the studies are pending. I will repeat chest x-ray today to document the left pleural effusion is not rapidly reaccumulating. (2) Pneumonia: Code(s): J18.9 - Pneumonia, unspecified organism Status: Acute Assessment and Plan: 02/09 Patient with bilateral infiltrates on his CT scan, cough with phlegm production, mild leukocytosis. COVID RT-CR is negative. I will order influenza swab. I agree with treatment with ceftriaxone and azithromycin (started 02/08) for community-acquired pneumonia. Currently patient is quiet 3 L nasal cannula oxygen with saturations 94%. Patient is scheduled to have a left thoracentesis and will follow the results of this test looking to determine if this effusion is a transudate, exudate or complicated pleural effusion. Will follow him clinically on these antibiotics. 02/10 Patient states that he feels much better today says he is breathing 90% back to normal. He continues with cough and phlegm. Currently is on 3 L with saturations 91%. White blood cell count is 10.8. Continue ceftriaxone and azithromycin. (3) COPD (chronic obstructive pulmonary disease): Code(s): J44.9 - Chronic obstructive pulmonary disease, unspecified Status: Acute Assessment and Plan: 02/09 Patient is smoking history with dyspnea on exertion and improvement with albuterol in the past. PFT's from 09/03/2018 do not demonstrate any obstructive abnormality but I have none more recently. At this time he has bilateral expiratory wheezing and I will treat the patient for COPD exacerbation and will initiate Solu-Medrol 20 mg IV Q 6 hours and continue albuterol 2.5 mg neb q.6 hours and ipratropium 0.5 mg nebs q.6 hours. 02/10 I would discontinue the Solu-Medrol place him on 40 mg p.o. q.day prednisone. I will continue albuterol and ipratropium nebulizers q.6 hours. Patient states he is breathing 90% back to normal that he feels like he could possibly be discharged on 02/11. Will follow with you. Subjective Date/time seen: 02/10/21 09:15 Interval history: 02/09/2021: This is a new pulmonary consult for left lung mass 60-year-old with a history of tobacco use, hypertension, hypothyroidism spinal disc injury and now with a left lower lobe lung mass, multiple hepatic masses, bilateral adrenal masses and left supraclavicular lymph nodes. patient states he was in his usual state of health until about 3 months ago when he developed a cough and yellow phlegm. Approximately 2 months ago he developed fatigue with no weight loss. A CT scan and CT scan were performed at [place] which demonstrated a left lower lobe lung mass, hepatic masses and bilateral adrenal masses. Patient states that he also had a a PET scan that demonstrated positive f
[2021-02-10] MEDS: predniSONE 20 MG TABLET 40 MG PO (12:02)
--- NOTE | 2021-02-10 12:33 | PDONCCN ---
HPI - Date of Consult Date/Time: 02/10/21 12:33 Requesting Physician: Lavern Arriaga PA-C Primary Care Provider: Janey Louie MD - Consult Narrative Reason for consult: Likely metastatic lung cancer Narrative: Braxton Dyson is a 60 year old male with history of smoking 2 pack per day for 30 years duration along with hypertension and hypothyroidism came into the hospital with increasing shortness of breath for 4 days duration. He denies any cough. Denies any significant weight loss. He has chronic back pain. No headache. No seizures. Patient had chest x-ray done previously that showed left lower lobe mass and CT chest was also performed. He had PET scan done at [facility]. He was found to have metastatic disease with liver and adrenal gland involvement. He was going to see oncologist at [facility]. Patient is now in the hospital with shortness of breath. Patient had thoracentesis done with 750 cc of fluid removed on February 08. Fluid cytology showed malignant cells. Patient also had ultrasound-guided left supraclavicular lymph node biopsy done on February 08. Pathology is pending. Review of Systems - Review of Systems All systems reviewed & are unremarkable except as noted in HPI and bel - Neurologic Reports system reviewed and no additional complaints, except as documented, Reports weakness, Denies headache(s), Denies focal weakness, Denies numbness PMFSH Medical History: Medical History (Last Reviewed 02/09/21 @ 00:13 by Molly Gee PA-C) Anxiety Chronic low back pain Onset Date: Unknown Chronic, continuous use of opioids Depression Fibromyalgia Gastroesophageal reflux disease Hypertension Hypothyroidism Mitral valve regurgitation Echocardiogram on 01/21/2018 showed [id number] mitral valve regurgitation. Tobacco abuse Surgical History: Surgical History (Last Reviewed 02/09/21 @ 00:13 by Molly Gee PA-C) History of vocal cord polypectomy Status post laparoscopic appendectomy Onset Date: 07/26/19 Acute perforated appendicitis with generalized peritonitis. Family History: Family History (Last Reviewed 02/09/21 @ 00:13 by Molly Gee PA-C) Father Diabetes mellitus Sibling Cancer Son Diabetes mellitus Other Depression Family history of arthritis Family history of mental disorder Family history of thyroid disease Hypertension Meds Home Medications Medication Instructions Recorded Confirmed Type aspirin 81 mg PO DAILY 07/26/19 02/08/21 History fentanyl See Rx Instructions .ROUTE .COMPLEX 07/26/19 02/08/21 History gabapentin 400 mg PO QID 07/26/19 02/08/21 History hydrochlorothiazide 12.5 mg PO DAILY 07/26/19 02/08/21 History levothyroxine 50 mcg PO DAILY 07/26/19 02/08/21 History losartan 50 mg PO DAILY 07/26/19 02/08/21 History naproxen sodium [Aleve] 220 mg PO BID 07/26/19 02/08/21 History sertraline 50 mg PO BID 07/26/19 02/08/21 History omeprazole magnesium [Prilosec OTC] 20 mg PO BID 08/22/19 02/08/21 History albuterol sulfate 2 puff INHALATION QID PRN #6.7 g 02/07/21 02/08/21 Rx albuterol sulfate 5 mg INHALATION Q6H #200 ml 02/07/21 02/08/21 Rx doxycycline hyclate 100 mg PO BID #30 cap 02/07/21 02/08/21 Rx nebulizer and compressor #1 ea 02/07/21 Rx oxycodone-acetaminophen See Rx Instructions .ROUTE 02/08/21 02/08/21 History .COMPLEX PRN Allergies Allergy/AdvReac Type Severity Reaction Status Date / Time poison rubén extract Allergy Unknown Rash Verified 02/08/21 18:29 pollen extracts Allergy Unknown Congested Verified 02/08/21 18:29 Results - Labs CBC & Chem 7: 02/10/21 06:09 02/10/21 06:09 Labs: Short CBC 02/10/21 Range/Units 06:09 WBC 10.8 H (4.5-10.0) K/mm3 Hgb 9.4 L (14.0-18.0) g/dL Hct 28.9 L (42.0-52.0) % Plt Count 612 H (150-375) k/mm3 BMP 02/10/21 06:09 Sodium 132 L Potassium 3.9 Chloride 91 L Carbon Dioxide 33 H BUN 9 Creatinine 0.50
--- NOTE | 2021-02-10 15:44 | PM.IMPN ---
Progress Note: A&P Assessment and Plan (1) Acute respiratory failure with hypoxia: Code(s): J96.01 - Acute respiratory failure with hypoxia Status: Acute Assessment and Plan: Likely due to combination of pneumonia, pleural effusion, and lung cancer -supplemental O2 as needed with goal saturation 92% or above. Currently requiring 2 L per nasal cannula -Continue ceftriaxone and azithromycin for pneumonia coverage -underwent thoracentesis on 02/09 yielding 750 male opaque, red fluid. Symptomatic improvement following thoracentesis -appreciate pulmonology consultation -pt is up to date with his flu shot but has not gotten the COVID vaccine. His COVID test was negative 02/07/21. -he will need home O2 eval prior to discharge. Possibly tomorrow if continued improvement (2) Pneumonia: Code(s): J18.9 - Pneumonia, unspecified organism Status: Acute Assessment and Plan: As above -continue ceftriaxone and azithromycin -supportive care to include bronchodilators, expectorants, incentive spirometry (3) Mass of left lung: Code(s): R91.8 - Other nonspecific abnormal finding of lung field Status: Acute Assessment and Plan: Mass evident on CXR and CT; left perihilar mass and mediastinal and bilateral hilar lymphadenopathy concerning for primary bronchogenic carcinoma with metastatic disease. Also evidence of hepatic metastases and possible bilateral adrenal metastases -appreciate oncology and pulmonology consultation -PET scan [facility] at [facility] -follow-up scheduled at [facility] to establish care with oncologist Dr. Lowe. -ultrasound-guided left supraclavicular lymph node biopsy completed 02/08/2021. Pathology shows large atypical cells suspicious for non hemato-lymphoid neoplasm (4) Pleural effusion on left: Code(s): J90 - Pleural effusion, not elsewhere classified Status: Acute Assessment and Plan: Concerning for malignant effusion -Thoracentesis completed 02/09 yielding 750 cc -Pleural fluid studies pending -Gram stain and cultures pending; pathology pending -echo reveals EF of 55-60% but does show hypokinetic regions of the inferior and basal septal wall (5) Tobacco abuse: Code(s): Z72.0 - Tobacco use Status: Acute Assessment and Plan: Patient has been cutting back and now smokes about a pack a day -Continue nicotine patch (6) Chronic low back pain: Onset Date: Unknown Code(s): M54.5 - Low back pain; G89.29 - Other chronic pain Status: Acute Assessment and Plan: Continue fentanyl patch and hydrocodone p.r.n. as needed (7) Chronic, continuous use of opioids: Code(s): F11.90 - Opioid use, unspecified, uncomplicated Status: Acute Assessment and Plan: Plan is as detailed above. Patient sees pain management. He has a history of spinal surgery and trauma. Bowel regimen given chronic narcotics. (8) Hypertension: Code(s): I10 - Essential (primary) hypertension Status: Acute Assessment and Plan: Last blood pressure 106/65 -continue losartan -hold hydrochlorothiazide due to hyponatremia (9) Hypothyroidism: Code(s): E03.9 - Hypothyroidism, unspecified Status: Acute Assessment and Plan: Continue levothyroxine -TSH low but T4 in normal range 1.9 (10) Electrolyte abnormality: Code(s): E87.8 - Other disorders of electrolyte and fluid balance, not elsewhere classified Status: Acute Assessment and Plan: Sodium has improved up to 132 today -urine sodium is high but the patient has been on hydrochlorothiazide -unknown baseline, await records (11) Hyperglycemia: Code(s): R73.9 - Hyperglycemia, unspecified Status: Acute Assessment and Plan: A1c 6.0 -blood sugars remaining stable. (12) Chest pain: Code(s): R07.9 - Chest pain, unspecified Status: Ac
[2021-02-10] MEDS: DOCUSATE SODIUM 100 MG CAPSULE PO (21:00)
[2021-02-11] VITALS (12 sets, daily range): BP systolic 121; BP diastolic 78; PULSE 84–114; RESP 18–20; TEMP 36.9; O2SAT 87–97
[2021-02-11] MEDS: oxyCODONE HCL (*CRX) 5 MG TAB IR PO ×4 (01:04→16:44)
[2021-02-11] MEDS: IPRATROPIUM BR 0.02% INH SOLN 0.5 MG/2.5 ML VIAL INHALATION ×2 (01:53→06:37)
[2021-02-11] MEDS: ALBUTEROL SULFATE NEB 2.5 MG/0.5 ML INH INHALATION ×2 (01:53→06:37)
[2021-02-11 06:12] LABS: Hematocrit 28.9 % (42.0-52.0); Hemoglobin 9.5 g/dL (14.0-18.0); Mean Corpuscular HGB Conc 32.9 g/dl (32-36); Mean Corpuscular Hemoglobin 26.5 pg (26-34); Mean Corpuscular Volume 80.5 fl (80-100); Mean Platelet Volume 8.3 fl (7.4-10.4); Platelet Count Result 624 k/mm3 (150-375); Red Blood Count 3.59 M/mm3 (4.6-6.20); Red Cell Distribution Width 14.4 % (11.5-14.5); White Blood Count 13.9 K/mm3 (4.5-10.0)
[2021-02-11 06:23] LABS: Anion Gap 8 mmol/L (8-16); Blood Urea Nitrogen 10 mg/dL (9-20); Calcium 8.9 mg/dL (8.4-10.2); Carbon Dioxide 28 mmol/L (22-30); Chloride 92 mmol/L (98-107); Estimated CRCL calculation 99 ml/min; Estimated Glomerular Filt Rate > 60; Glucose 118 mg/dL (65-110); Potassium 3.8 mmol/L (3.4-5.0); Sodium 128 mmol/L (137-145)
[2021-02-11] MEDS: LEVOTHYROXINE SODIUM 50 MCG TABLET PO (06:29)
--- NOTE | 2021-02-11 08:14 | PM.PNPUL ---
Progress Note: A&P Assessment and Plan (1) Mass of left lung: Code(s): R91.8 - Other nonspecific abnormal finding of lung field Status: Acute Assessment and Plan: 02/09 Patient with tobacco use, chronic cough and left lower lobe lung mass occluding his left lower lobe bronchus with consolidation, hepatic masses and bilateral adrenal masses with bilateral hilar and mediastinal lymphadenopathy and left supraclavicular lymphadenopathy. The patient tells me his PET scan was also positive in the lung and the liver but I do not have this report. I suspect this is metastatic lung cancer. I spoke with the radiologist on 02/08 and will proceed with biopsy of the left supraclavicular lymph node on 02/09. Oncology has been consulted. 02/10 patient had left supraclavicular lymph node biopsy and a left thoracentesis removed with removal of 750 mL of opaque red fluid. The pH was 7.45, cell differential was neutrophils 11%, lymphocytes 64% macrophages 21% mesothelial cells 4%. G stain showed moderate white blood cells and no organisms seen. Cytospin of the pleural fluid demonstrates atypical cells with clusters suspicious for neoplasm. Remainder of the studies are pending. I will repeat chest x-ray today to document the left pleural effusion is not rapidly reaccumulating. 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 He has been seen by Oncology service, Dr. Khoury, in our hospital. The patient tells me he will continue with his previously scheduled oncology appointment with [facility] in [place] on 02/14/2021 as a 2nd opinion. If his left pleural effusion reaccumulates he should be referred to a thoracic surgeon for consideration of pleurodesis or Pleurx catheter. (2) Pneumonia: Code(s): J18.9 - Pneumonia, unspecified organism Status: Acute Assessment and Plan: 02/09 Patient with bilateral infiltrates on his CT scan, cough with phlegm production, mild leukocytosis. COVID RT-CR is negative. I will order influenza swab. I agree with treatment with ceftriaxone and azithromycin (started 02/08) for community-acquired pneumonia. Currently patient is quiet 3 L nasal cannula oxygen with saturations 94%. Patient is scheduled to have a left thoracentesis and will follow the results of this test looking to determine if this effusion is a transudate, exudate or complicated pleural effusion. Will follow him clinically on these antibiotics. 02/10 Patient states that he feels much better today says he is breathing 90% back to normal. He continues with cough and phlegm. Currently is on 3 L with saturations 91%. White blood cell count is 10.8. Continue ceftriaxone and azithromycin. 02/11 Patient states that he is 90-95% back to normal. He still has some cough and yellow phlegm but it has improved. Patient is ambulating in the hallway yesterday. He is afebrile, white blood cell count 13.9. Today is day 4 of ceftriaxone and azithromycin. I would discharge the patient on Levaquin 750 mg p.o. q.day to finish a total of 10 days of antibiotics. (3) COPD (chronic obstructive pulmonary disease): Code(s): J44.9 - Chronic obstructive pulmonary disease, unspecified Status: Acute Assessment and Plan: 02/09 Patient is smoking history with dyspnea on exertion and improvement with albuterol in the past. PFT's from 09/03/2018 do not demonstrate any obstructive abnormality but I have none more recently. At this time he has bilateral expiratory wheezing and I will treat the patient for COPD exacerbation and will initiate Solu-Medrol 20 mg IV Q 6 hours and continue albuterol 2.5 mg neb q.6 hours and ipratropium 0.5 mg nebs q.6 hours. 02/10 I would discontinue the Solu-Medrol place him on 40 mg p.o. q.day prednisone. I
[2021-02-11] MEDS: DOCUSATE SODIUM 100 MG CAPSULE PO (09:49)
[2021-02-11] MEDS: SERTRALINE HCL 50 MG TABLET PO (09:49)
[2021-02-11] MEDS: PANTOPRAZOLE 40 MG TABLET PO (09:49)
[2021-02-11] MEDS: LOSARTAN POTASSIUM 50 MG TABLET PO (09:50)
[2021-02-11] MEDS: predniSONE 20 MG TABLET 40 MG PO (09:50)
[2021-02-11] MEDS: GABAPENTIN 400 MG CAPSULE PO ×3 (09:50→16:52)
[2021-02-11] MEDS: NICOTINE (*PBKC) 21 MG PATCH 1 PATCH TRANSDERM (09:51)
[2021-02-11] MEDS: oxyCODONE/ACETAMINOPHEN (*CRX) 5-325 MG TABLET 1 TABLET PO ×2 (12:07→16:45)
[2021-02-11 13:30] LABS: Sodium 127 mmol/L (137-145)
--- NOTE | 2021-02-11 15:04 | HOMEO2EVAL ---
Evaluation was performed at [facility] Home Oxygen Evaluation RC: Home Oxygen (O2) Evaluation Start: 02/11/21 12:38 Freq: ONCE Status: Active Protocol: RPE Activity Type Activity Date Activity User E-Sign Co-Sign Detail Recorded Client Recorded Date Recorded By Document 02/11/21 14:00 ARMANDO [email or web address] 02/11/21 14:55 ARMANDO Document 02/11/21 14:01 ARMANDO [email or web address] 02/11/21 14:55 ARMANDO Document 02/11/21 14:02 ARMANDO [email or web address] 02/11/21 14:55 ARMANDO Document 02/11/21 14:05 ARMANDO [email or web address] 02/11/21 14:55 ARMANDO Document 02/11/21 14:06 ARMANDO [email or web address] 02/11/21 14:55 ARMANDO Document 02/11/21 14:15 ARMANDO [email or web address] 02/11/21 14:55 ARMANDO 02/11/21 02/11/21 02/11/21 14:00 14:01 14:02 Home O2 Evaluation Test Phase Resting Resting Resting Oxygen Delivery Room Air Nasal Cannula Nasal Cannula Oxygen Flow Rate (L/min) 1 2 Pulse Oximetry (90-100 %) 87 L 87 L 91 Pulse Rate (60-100 beats/min) 89 Home Oxygen Evaluation Comments Treatment Charges O2 Evaluation - Inpatient 02/11/21 02/11/21 02/11/21 14:05 14:06 14:15 Home O2 Evaluation Test Phase Exercise Exercise Resting Oxygen Delivery Nasal Cannula Nasal Cannula Nasal Cannula Oxygen Flow Rate (L/min) 2 3 2 Pulse Oximetry (90-100 %) 87 L 91 93 Pulse Rate (60-100 beats/min) 114 H 92 Home Oxygen Evaluation Comments Pt requires 2L O2 with rest and 3L O2 with exertion/ activity Treatment Charges
--- NOTE | 2021-02-11 15:04 | PCRCNOTE ---
Home O2 eval done, pt requires 2 L at rest and 3 l with activity. Set up with [facility], tank in room for transport home. All paperwork has been faxed over to DME. RN notified of needs.
--- NOTE | 2021-02-11 15:17 | PM.DS ---
DS: Admitting Diagnosis Discharge Date 02/11/2021 Admitting Diagnosis Acute respiratory failure with hypoxia DS: Discharge Diagnosis Discharge Diagnosis (1) Acute respiratory failure with hypoxia: Code(s): J96.01 - Acute respiratory failure with hypoxia Status: Acute Assessment and Plan: Likely due to combination of pneumonia, COPD, pleural effusion, and lung cancer. He was seen in consultation by pulmonology. Home O2 evaluation performed on 02/11/2021 demonstrated need for 2 L supplemental O2 with rest and 3 L O2 with activity. (2) Pneumonia: Code(s): J18.9 - Pneumonia, unspecified organism Status: Acute Assessment and Plan: CT scan showed bilateral infiltrates and he had productive cough and mild leukocytosis. COVID influenza negative. He was started on IV Rocephin and azithromycin for coverage of community-acquired pneumonia and will continue taking p.o. Levaquin x7 days home. Supportive care provided including bronchodilators, expectorants, incentive spirometry. (3) Mass of left lung: Code(s): R91.8 - Other nonspecific abnormal finding of lung field Status: Acute Assessment and Plan: Mass evident on CXR and CT; left perihilar mass and mediastinal and bilateral hilar lymphadenopathy concerning for primary bronchogenic carcinoma with metastatic disease. Also evidence of hepatic metastases and possible bilateral adrenal metastases. He was evaluated by oncologist, Dr. Khoury and has an appointment to follow-up with oncologist, Dr. Lowe, at [facility] in [place]. He recently had a PET scan completed at [facility], of which we do not have these records. Ultrasound-guided left supraclavicular lymph node biopsy completed 02/08/2021. 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 He has oncology follow-up scheduled 02/14/2021. Release of records form filled outpatient to allow patient's oncologist at [facility] to review imaging and pathology. (4) Pleural effusion on left: Code(s): J90 - Pleural effusion, not elsewhere classified Status: Acute Assessment and Plan: CXR on presentation showed new moderate left-sided pleural effusion, concerning for malignant effusion. He underwent thoracentesis on 02/09/2021 which yielded 750 cc opaque, red fluid. Pathology consistent with small cell cancer as described above. Gram stain negative, preliminary cultures negative. Pleural fluid studies pending including protein, LDH. (5) COPD (chronic obstructive pulmonary disease): Code(s): J44.9 - Chronic obstructive pulmonary disease, unspecified Status: Acute Assessment and Plan: Presented with expiratory wheezes, felt to be consistent with mild COPD exacerbation. Started on IV Solu-Medrol and transition to p.o. prednisone which he will continue through 02/13/2021. He had symptomatic improvement with IV steroids and nebulizers. Continue p.r.n. rescue albuterol inhaler at home. Started on Anoro Ellipta per pulmonology recommendations. Continue home O2 as noted above. (6) Tobacco abuse: Code(s): Z72.0 - Tobacco use Status: Acute Assessment and Plan: Patient has been cutting back and now smokes about a pack a day. Continue nicotine patch (7) Chronic low back pain: Onset Date: Unknown Code(s): M54.5 - Low back pain; G89.29 - Other chronic pain Status: Acute Assessment and Plan: Continue fentanyl patch and hydrocodone p.r.n. as needed (8) Chronic, continuous use of opioids: Code(s): F11.90 - Opioid use, unspecified, uncomplicated Status: Acute Assessment and Plan: Secondary to chronic low back pain. Continue fentanyl patch and hydrocodone p.r.n. He is established with pain management. He has a history of spinal surgery and trauma. Bowel regimen needed given chronic narcotics, continue Colace
[2021-02-11 21:28] LABS: Glucose Pleural Fluid 93 mg/dL; Total Protein Pleural Fluid 3.2 g/dL
[2021-02-12 06:01] LABS: Osmolality, Urine 635 mOsm/kg (50-1200)
== END 2021-02-11 17:07 | disposition home or self-care (01) | DRG 987 ==
LOC: ANHED 13:06 → ANH3MEDSUR 15:47
PROVIDERS: Physician Assistant; Admitting Provider Internal Medicine; Emergency Provider Emergency Medicine; PCP Family Medicine; Visit Provider Physician Assistant
DX: C34.92 Malignant neoplasm of unspecified part of left bronchus or lung (principal); J18.9 Pneumonia, unspecified organism; J96.01 Acute respiratory failure with hypoxia; C77.0 Secondary and unspecified malignant neoplasm of lymph nodes of head, face and neck; E87.1 Hypo-osmolality and hyponatremia; J44.1 Chronic obstructive pulmonary disease with (acute) exacerbation; J44.0 Chronic obstructive pulmonary disease with (acute) lower respiratory infection; J91.0 Malignant pleural effusion; C78.7 Secondary malignant neoplasm of liver and intrahepatic bile duct; C79.72 Secondary malignant neoplasm of left adrenal gland; C79.71 Secondary malignant neoplasm of right adrenal gland; I34.0 Nonrheumatic mitral (valve) insufficiency; E87.6 Hypokalemia; E87.8 Other disorders of electrolyte and fluid balance, not elsewhere classified; E03.9 Hypothyroidism, unspecified; I10 Essential (primary) hypertension; F17.210 Nicotine dependence, cigarettes, uncomplicated; M54.50 Low back pain, unspecified; G89.29 Other chronic pain; F11.90 Opioid use, unspecified, uncomplicated; R73.9 Hyperglycemia, unspecified; F41.9 Anxiety disorder, unspecified; R07.9 Chest pain, unspecified; Z79.82 Long term (current) use of aspirin; Z79.899 Other long term (current) drug therapy
CPT/HCPCS: 32555; 36415; 38505; 71045; 71046; 71260; 76942; 80048; 80076; 81001; 82040; 82042; 82465; 82533; 82570; 82945; 83036; 83615; 83735; 83880; 83930; 83935; 83986; 84155; 84157; 84295; 84300; 84311; 84439; 84443; 84478; 84480; 84484; 85025; 85027; 85610; 85730; 87070; 87075; 87205; 88104; 88108; 88305; 88342; 89051; 93005; 93306; 93970; 94618; 94640; 94667; 96365; 97110; 97116; 97161; 97165; 97530; 99284; 99285; A9270; C9803; J0456; J0696; J1720; J1940; J2920; J7512; Q9967; U0003; U0005

== ENCOUNTER 2021-02-20 23:44 | Inpatient (IN) | payer MEDICARE, SELFPAY ==
--- NOTE | ~2021-02-20 | XR_ITS ---
EXAMINATION: XR chest 1V portable DATE: 02/24/2021 11:24 INDICATION: Shortness of breath TECHNIQUE: frontal view of the chest was obtained. COMPARISON: Chest radiograph dated 02/12/[address] dated 02/21/2021 FINDINGS: Interval progression of now complete opacification of the left hemithorax. Increased interstitial pat tern, Nae B-lines and patchy airspace opacities throughout the right lung. No pneumothorax or righ t-sided pleural effusion. The left side of the cardiac mediastinal silhouette is obscured. No midline shift. IMPRESSION: 1. Complete opacification of the left hemithorax which based on prior CT likely represents combinatio n of moderate size pleural effusion, left lower lobe pneumonia and lingular and upper lobe atelectasi s. 2. Interstitial and airspace opacities in the right lung which could represent mild pulmonary edema o r additional pneumonia. Reviewed, dictated and finalized at location A. ER MERCHANDISER IMPRESSION: 1. Complete opacification of the left hemithorax which based on prior CT likely represents combination of moderate size pleural effusion, left lower lobe pneu monia and lingular and upper lobe atelectasis. 2. Interstitial and airspace opacities in the right lung which could represent mild pulmonary edema or additional pneumonia.
--- NOTE | ~2021-02-20 | XR_ITS ---
EXAMINATION: XR chest 2V DATE: 02/21/2021 00:15 INDICATION: Shortness of breath with increasing oxygen demand. Lung cancer. TECHNIQUE: frontal and lateral views of the chest were obtained. COMPARISON: Chest radiograph dated 02/10/2021, CT dated 02/07/2021 and ultrasound dated 02/21/2021 FINDINGS: There is opacification of the left mid to lower lung zone which is similar to on prior CT and based u breonna imaging. Subsequent ultrasound as do primarily to consolidation throughout the left lung. There i s a small left pleural effusion at the lateral left upper lung zone. Patchy groundglass opacities thr oughout the right lung. No pneumothorax or right-sided pleural effusion. The left heart border is obs cured. IMPRESSION: 1. Interval development of dense consolidation throughout the left mid and lower lung zones likely co mbination of atelectasis and pneumonia with small associated left pleural effusion. 2. Patchy groundglass opacities throughout the right lung which could represent pulmonary edema, pneu monia, atelectasis or some combination thereof. Reviewed, dictated and finalized at location A. FF INSPECTOR IMPRESSION: 1. Interval development of dense consolidation throughout the left mid and lowe r lung zones likely combination of atelectasis and pneumonia with small associa brinda left pleural effusion. 2. Patchy groundglass opacities throughout the right lung which could represent pulmonary edema, pneumonia, atelectasis or some combination thereof.
--- NOTE | ~2021-02-20 | US_ITS ---
EXAMINATION: US soft tissue chest DATE: 02/21/2021 08:16 INDICATION: Left-sided pleural effusion. TECHNIQUE: Multiple grayscale and Doppler ultrasound images of the left chest were obtained as a scou t for planned therapeutic left thoracentesis. Based upon the findings to be discussed below the thora centesis was felt to be unlikely to provide a significant benefit and the planned thoracentesis was d eferred. I discussed this with Dr. Bragg at 7:45 AM. COMPARISON: Chest CT dated 02/07/2021 FINDINGS/IMPRESSION: Consolidation without evident shadowing gas throughout the left mid to lower lung. A small left pleur al effusion was visualized in the region of the left axilla. Given the small size of the left pleural effusion, the planned thoracentesis was deferred. The etiology for the consolidation in the left mid to lower lung is not identified but suggests bronchial obstruction in the region of the hilum which could be due to either known malignancy or mucous plugging. Would consider bronchoscopy for further e valuation. Reviewed, dictated and finalized at location A. OR NETWORK ADMINISTRATOR
--- NOTE | ~2021-02-20 | CT_ITS ---
EXAMINATION: CT brain wo con EXAM DATE: 02/24/2021 14:19 INDICATION: small cell lung cancer. TECHNIQUE: Spiral CT of the head was performed without contrast. Axial, coronal and sagittal images were reviewed. The dose-length product (DLP) for this examination was 681.00 mGy-cm. The exposure w as tailored according to patient size, and iterative reconstruction (ASIR) was used as additional dos e reduction technique. There is no prior study for comparison. FINDINGS: There is no acute intraparenchymal hemorrhage. No evidence of intraparenchymal brain mass lesion. No evidence of acute infarction. There is no mass effect or midline shift. The ventricles are normal in size. There are no extra-axial collections. There are no acute calvarial fractures. T he orbits are unremarkable. Soft tissue is unremarkable. The visualized sinuses and mastoid air christopher ls are well aerated. IMPRESSION: 1. No acute intracranial findings. Reviewed, dictated and finalized at location A. MANAGER
--- NOTE | ~2021-02-20 | CT_ITS ---
EXAMINATION: CTA chest PE protocol DATE: 02/21/2021 19:40 INDICATION: Shortness of breath. TECHNIQUE: Computed tomography angiography (CTA) of the chest was performed with 100 mL Omnipaque-350 intravenous contrast timed to evaluate the pulmonary arteries. Coronal maximum intensity projection 3D-reconstructions were created by the technologist. Automated exposure control and iterative reconst ruction technique were employed. The dose-length product was 296.24 mGy-cm. COMPARISON: Chest CT 02/07/2021 FINDINGS: There is a large left pleural effusion. There are airspace opacities throughout left lung, likely a combination of atelectasis and postobstructive pneumonia. There is a small right pleural eff usion. There are airspace and groundglass opacities and smooth septal thickening throughout right karyn g. There is rightward shift of the mediastinum. The heart size is normal. There are coronary artery c alcifications. No pericardial effusion. There is no pulmonary embolus. There is bulky mediastinal and bilateral hilar lymphadenopathy. There is mucous plugging of left mainstem bronchus. There are enlar ged pericardial lymph nodes. Again seen are multiple masses in the liver. There are masses in the adr enal glands measuring up to 4.4 cm on the left. There is bilateral supraclavicular lymphadenopathy. T here is moderate thoracic spondylosis. IMPRESSION: 1. Worsened large left and small right pleural effusions. 2. Worsened diffuse right lung disease, likely a combination of pulmonary edema and pneumonia. 3. Airspace opacities throughout left lung, likely a combination of atelectasis and postobstructive p neumonia. Mucous plugging in left mainstem bronchus. 4. Chest lymphadenopathy and liver and adrenal masses, consistent with metastatic disease. 5. No pulmonary embolus. Sensitivity is mildly decreased by motion artifact. Reviewed, dictated and finalized at location A. TECHNICIAN IMPRESSION: 1. Worsened large left and small right pleural effusions. 2. Worsened diffuse right lung disease, likely a combination of pulmonary edema and pneumonia. 3. Airspace opacities throughout left lung, likely a combination of atelectasis and postobstructive pneumonia. Mucous plugging in left mainstem bronchus. 4. Chest lymphadenopathy and liver and adrenal masses, consistent with metastat ic disease. 5. No pulmonary embolus. Sensitivity is mildly decreased by motion artifact.
--- NOTE | ~2021-02-20 | US_ITS ---
EXAMINATION: US venous doppler LE EXAM DATE: 02/23/2021 15:11 INDICATION: Bilateral leg edema. TECHNIQUE: Multiple grayscale, color flow and Doppler images of the lower extremity deep venous syste ms bilaterally were obtained and reviewed. Comparison is made to prior examination from 02/09/2021. FINDINGS: Right side: The right common femoral, femoral and profunda veins demonstrate normal color flow, respi ratory variation, augmentation and compressibility. Compressibility, color flow confirmed within the right popliteal, posterior tibial, peroneal, and greater saphenous veins. Left side: The left common femoral, femoral and profunda veins demonstrate normal color flow, respira tory variation, augmentation and compressibility. Compressibility, color flow confirmed within the l eft popliteal, posterior tibial, peroneal, and greater saphenous veins. IMPRESSION: 1. No lower extremity deep venous thrombosis bilaterally. Reviewed, dictated and finalized at location A. IGHTEDGE WORKER
[2021-02-20 23:46] VITALS: BP 120/78; RESP 19; TEMP 36.6; O2SAT 100
--- NOTE | 2021-02-20 23:51 | ECG_ITS ---
Measurements Intervals [place] Rate: 97 P: 52 NJ: 164 QRS: 30 QRSD: 93 T: 78 QT: 321 QTc: 408 Interpretive Statements SINUS RHYTHM EARLY PRECORDIAL R/S TRANSITION NONSPECIFIC T-WAVE ABNORMALITY- HIGH LATERAL LEADS BORDERLINE ECG Electronically Signed On 02-21-2021 6:54:13 INSULATION TECHNICIAN by Jakob Gomez D.O.
[2021-02-20 23:52] VITALS: BP 120/78; PULSE 98; RESP 21; O2SAT 94
[2021-02-20 23:53] VITALS: PULSE 98; RESP 24; O2SAT 96
[2021-02-20 23:55] VITALS: O2SAT 100
[2021-02-21] VITALS (67 sets, daily range): BP systolic 108–143; BP diastolic 60–90; PULSE 82–105; RESP 15–26; TEMP 36.8–37.2; O2SAT 90–100
[2021-02-21 00:22] LABS: Basophils Percent Auto 0.2 % (0.2-1.2); Eosinophils Absolute Auto 0.1 K/mm3 (0-0.3); Eosinophils Percent Auto 0.8 % (0-4.4); Hematocrit 26.2 % (42.0-52.0); Hemoglobin 8.7 g/dL (14.0-18.0); Immature Granulocyte Absolute 0.09 K/mm3 (0.00-0.031); Immature Granulocyte Percent A 0.6 % (0-0.5); Lymphocytes Absolute Auto 0.92 K/mm3 (0.9-3.2); Lymphocytes Percent Auto 6.6 % (18.3-44.2); Mean Corpuscular HGB Conc 33.2 g/dl (32-36); Mean Corpuscular Hemoglobin 26.9 pg (26-34); Mean Corpuscular Volume 81.1 fl (80-100); Mean Platelet Volume 8.3 fl (7.4-10.4); Monocytes Absolute Auto 0.9 K/mm3 (0.1-0.6); Monocytes Percent Auto 6.4 % (2.6-8.5); Neutrophils Absolute Auto 11.9 K/mm3 (1.3-6.7); Neutrophils Percent Auto 85.4 % (45.5-73.1); Platelet Count Result 753 k/mm3 (150-375); Red Blood Count 3.23 M/mm3 (4.6-6.20); White Blood Count 13.9 K/mm3 (4.5-10.0)
[2021-02-21 00:40] LABS: Alanine Aminotransferase 25 U/L (4-50); Alkaline Phosphatase 209 U/L (38-126); Anion Gap 6 mmol/L (8-16); Aspartate Amino Transferase 52 U/L (17-59); Bilirubin,Total 0.3 mg/dL (0.2-1.3); Blood Urea Nitrogen 13 mg/dL (9-20); Calcium 8.3 mg/dL (8.4-10.2); Carbon Dioxide 30 mmol/L (22-30); Chloride 91 mmol/L (98-107); Estimated CRCL calculation 108 ml/min; Estimated Glomerular Filt Rate > 60; Glucose 117 mg/dL (65-110); Potassium 4.1 mmol/L (3.4-5.0); Sodium 127 mmol/L (137-145)
--- NOTE | 2021-02-21 01:07 | ED.GENADULT ---
HPI - General Adult General Chief complaint: Shortness of Breath/Dyspnea Stated complaint: SOB X 24 HOURS Time Seen by Provider: 02/21/21 00:32 History of Present Illness HPI narrative: Patient is a 60-year-old gentleman who presents to emergency department with chief complaint of shortness of breath. The patient has history of a left-sided pleural effusion and is recently been drained. The patient states that he is to follow-up with oncology at [facility] but has not seen them yet. Patient states that he was recently in the hospital and had fluid removed from the left side of his lung patient states he has been getting progressively more short of breath and this evening felt worse than normal. Patient reports this feels similar to whenever he had to have fluid removed from the left side of his lung. Related Data Home Medications Medication Instructions Recorded Confirmed aspirin 81 mg PO DAILY 07/26/19 02/08/21 fentanyl See Rx Instructions .ROUTE .COMPLEX 07/26/19 02/08/21 gabapentin 400 mg PO QID 07/26/19 02/08/21 levothyroxine 50 mcg PO DAILY 07/26/19 02/08/21 losartan 50 mg PO DAILY 07/26/19 02/08/21 sertraline 50 mg PO BID 07/26/19 02/08/21 omeprazole magnesium [Prilosec OTC] 20 mg PO BID 08/22/19 02/08/21 oxycodone-acetaminophen See Rx Instructions .ROUTE 02/08/21 02/08/21 .COMPLEX PRN Allergies Allergy/AdvReac Type Severity Reaction Status Date / Time poison rubén extract Allergy Unknown Rash Verified 02/08/21 18:29 pollen extracts Allergy Unknown Congested Verified 02/08/21 18:29 Review of Systems Review of Systems: A 10 system review of systems was completed on the patient and is negative except for what is stated in the HPI. Nursing and ancillary documentation was reviewed. [facility] Past Medical History Medical History Anxiety Chronic low back pain (Unknown) Chronic, continuous use of opioids Depression Fibromyalgia Gastroesophageal reflux disease Hypertension Hypothyroidism Mitral valve regurgitation Echocardiogram on 01/21/2018 showed [id number] mitral valve regurgitation. Tobacco abuse Surgical History Surgical History History of vocal cord polypectomy Status post laparoscopic appendectomy (07/26/19) Acute perforated appendicitis with generalized peritonitis. Family History Family History Father Diabetes mellitus Sibling Cancer Son Diabetes mellitus Other Depression Family history of arthritis Family history of mental disorder Family history of thyroid disease Hypertension Social History Social History Social History: The patient is and lives with his in [place]. They have 2 children. He is on disability. He smokes 2 packs of cigarettes per day and has for about 40 years. No alcohol or drug abuse. He designates his , Sulema, as his surrogate decision maker and he wishes to be a full code. Exam Narrative: GENERAL: Well-appearing, well-nourished, and in no acute distress. HEAD: Normocephalic, atraumatic. EYES: PERRLA and EOMI. ENT: Nares clear, no rhinorrhea or epistaxis. Mucous membranes moist. NECK: Supple. CHEST: Diminished breath sounds on the left side. No respiratory distress. HEART: Regular rate and rhythm. No murmur heard. Normal peripheral pulses. ABDOMEN: Soft, nontender, nondistended, normal active bowel sounds. EXTREMITIES: Normal range of motion. No edema. SKIN: Warm, dry, no rash. NEURO: No focal deficits. Alert and oriented x3. PSYCH: Normal mood and affect. Course Vital Signs Vital signs: Vital Signs Temperature 36.6 C 02/20/21 23:46 Respiratory Rate 19 02/20/21 23:46 Blood Pressure 120/78 02/20/21 23:46 Pulse Oximetry 100 02/20/21 23:46 Temperature 36.6 C
[2021-02-21] MEDS: MORPHINE SULFATE (*CRX) 4 MG/ML INJ IV PUSH (03:30)
--- NOTE | 2021-02-21 08:20 | ADMGEN ---
This patient, Braxton Dyson, was admitted to [facility] Surg Room 325-02. Patient/family oriented to hospital policies and general routines including ID bracelet, bed and alarms, visiting hours, pain management, procedures, bathroom and other care routines, personal items, smoking policy, room service/diet, and visiting hours. Information on how to activate the Rapid Response Team has been discussed. Patient/Family are encouraged to report perceived risks to care and to ask questions if they do not understand what they are told or what they should do.
[2021-02-21] MEDS: SALINE 0.65% NAS SOLN 44 ML BTL 1 SPRAY NASAL (11:54)
[2021-02-21] MEDS: NICOTINE (*PBKC) 21 MG PATCH 1 PATCH TRANSDERM (11:54)
--- NOTE | 2021-02-21 13:26 | PM.IMHP ---
H&P: HPI History of Present Illness Date/Time: 02/21/21 13:26 ED-HPI narrative: Patient is a 60-year-old gentleman who presents to emergency department with chief complaint of shortness of breath. The patient has history of a left-sided pleural effusion and is recently been drained. The patient states that he is to follow-up with oncology at [facility] but has not seen them yet. Patient states that he was recently in the hospital and had fluid removed from the left side of his lung patient states he has been getting progressively more short of breath and this evening felt worse than normal. Patient reports this feels similar to whenever he had to have fluid removed from the left side of his lung. patient is 60-year-old male with recently seen at the hospital with long history of smoking and a small cell cancer recent biopsy the lymph node showed endocrine carcinoma patient is supposed to be seen at [facility] on February 28 however he shortness of breath was getting worse and presented emergency depart chest x-ray of the chest showed concerning for consolidation and pleural effusion, patient had ultrasound to evaluate for thoracentesis however the fluid volume is not significant for thoracentesis however it shows obstructive consolidation worsening lung cancer, I called Dr. Jett at [facility] since patient has not been seen in the clinic will not see patient immediately in the clinic or in the hospital, I have also called [facility] to transfer the patient however there were no bed available and patient is on waiting list, after long discussion with patient and his he has agreed to see Dr. Khoury for evaluation and chemotherapy, patient remains clinically stable he does not have significant complaint of shortness of breath while in the hospital and denies any fever or chills, patient white counts are slightly elevated, and since patient was in the hospital 2 weeks ago will start the patient on Unasyn and vancomycin, will monitor. patient will stay in hospital for 2 midnights admitted as an inpatient Chief Complaint: shortness of breath Review of Systems Review of Systems: All systems reviewed & are unremarkable except as noted in HPI and below PMFSH Past Medical History Medical History Anxiety Chronic low back pain (Unknown) Chronic, continuous use of opioids Depression Fibromyalgia Gastroesophageal reflux disease Hypertension Hypothyroidism Mitral valve regurgitation Echocardiogram on 01/21/2018 showed [id number] mitral valve regurgitation. Tobacco abuse Surgical History Surgical History History of vocal cord polypectomy Status post laparoscopic appendectomy (07/26/19) Acute perforated appendicitis with generalized peritonitis. Family History Family History Father Diabetes mellitus Sibling Cancer Son Diabetes mellitus Other Depression Family history of arthritis Family history of mental disorder Family history of thyroid disease Hypertension Social History Social History Social History: The patient is and lives with his in [place]. They have 2 children. He is on disability. He smokes 2 packs of cigarettes per day and has for about 40 years. No alcohol or drug abuse. He designates his , Sulema, as his surrogate decision maker and he wishes to be a full code. Smoking packs per day: 2 Smoking cigarettes per day: 40.0 Smoking status: Former smoker Smoking end date: 02/07/21 Alcohol intake: never Substance use: never Spiritual care concerns: No Meds Home Medications and Allergies Home Medications Medication Instructions Recorded Confirmed Type aspirin 81 mg PO DAILY
[2021-02-21] MEDS: LOSARTAN POTASSIUM 50 MG TABLET PO (14:23)
[2021-02-21] MEDS: GABAPENTIN 400 MG CAPSULE PO ×2 (14:23→20:15)
[2021-02-21] MEDS: oxyCODONE HCL (*CRX) 5 MG TAB IR PO ×2 (14:24→20:20)
[2021-02-21] MEDS: oxyCODONE/ACETAMINOPHEN (*CRX) 5-325 MG TABLET 1 TABLET PO ×2 (14:24→20:21)
[2021-02-21] MEDS: AMPICILLIN SULB 3 GM/NS 100 ML 3 GM/100 ML VIAL IVPB ×2 (15:38→20:20)
[2021-02-21] MEDS: predniSONE 20 MG TABLET 40 MG PO (15:44)
[2021-02-21] MEDS: ASPIRIN 81 MG ENTERIC TABLET PO (15:44)
[2021-02-21] MEDS: ALBUTEROL SULFATE NEB 2.5 MG/0.5 ML INH 5 MG INHALATION ×2 (16:25→20:31)
[2021-02-21 20:17] LABS: EDCOVIDSCREEN Negative (Negative)
[2021-02-21] MEDS: guaiFENesin 12 HR 600 MG TABCR PO (20:22)
[2021-02-21] MEDS: PANTOPRAZOLE 40 MG TABLET PO (20:22)
[2021-02-22] VITALS (19 sets, daily range): BP systolic 122–142; BP diastolic 68–75; PULSE 75–102; RESP 16–22; TEMP 36.1–36.7; O2SAT 92–97
[2021-02-22] MEDS: ALBUTEROL SULFATE NEB 2.5 MG/0.5 ML INH 5 MG INHALATION ×4 (01:07→20:56)
[2021-02-22] MEDS: oxyCODONE/ACETAMINOPHEN (*CRX) 5-325 MG TABLET 1 TABLET PO ×3 (02:22→15:45)
[2021-02-22] MEDS: oxyCODONE HCL (*CRX) 5 MG TAB IR PO ×3 (02:22→15:46)
[2021-02-22] MEDS: AMPICILLIN SULB 3 GM/NS 100 ML 3 GM/100 ML VIAL IVPB ×4 (02:23→21:16)
[2021-02-22] MEDS: ALBUTEROL SULFATE (*SP) AEROSOL 1 PUFF 2 PUFF INHALATION (04:50)
[2021-02-22] MEDS: LEVOTHYROXINE SODIUM 50 MCG TABLET PO (06:27)
[2021-02-22 06:58] LABS: Hematocrit 28.2 % (42.0-52.0); Mean Corpuscular HGB Conc 31.9 g/dl (32-36); Mean Corpuscular Hemoglobin 25.8 pg (26-34); Mean Corpuscular Volume 80.8 fl (80-100); Mean Platelet Volume 8.3 fl (7.4-10.4); Platelet Count Result 770 k/mm3 (150-375); Red Blood Count 3.49 M/mm3 (4.6-6.20); Red Cell Distribution Width 15.1 % (11.5-14.5); White Blood Count 16.5 K/mm3 (4.5-10.0)
[2021-02-22 07:15] LABS: Alanine Aminotransferase 23 U/L (4-50); Albumin Level 3.2 g/dL (3.5-5.1); Alkaline Phosphatase 199 U/L (38-126); Anion Gap 11 mmol/L (8-16); Aspartate Amino Transferase 52 U/L (17-59); Bilirubin,Total 0.4 mg/dL (0.2-1.3); Blood Urea Nitrogen 13 mg/dL (9-20); Calcium 8.8 mg/dL (8.4-10.2); Carbon Dioxide 30 mmol/L (22-30); Chloride 87 mmol/L (98-107); Estimated CRCL calculation 108 ml/min; Estimated Glomerular Filt Rate > 60; Glucose 127 mg/dL (65-110); Potassium 4.5 mmol/L (3.4-5.0); Sodium 128 mmol/L (137-145)
--- NOTE | 2021-02-22 07:50 | PM.CNPUL ---
Assessment and Plan Assessment and plan (1) Small cell lung cancer: Code(s): C34.90 - Malignant neoplasm of unspecified part of unspecified bronchus or lung Status: Acute Assessment and Plan: 60-year-old man with acute hypoxemic respiratory failure related to metastatic small-cell lung cancer, with a massive left pleural effusion and left lung atelectasis, probable metastatic disease to liver and adrenals, right lung infiltrates probably related to pneumonia. Chest CT showed no evidence of pulmonary embolism. Patient is currently on antibiotics for possible right lung pneumonia. Efforts are underway to transfer the patient to [facility]. Will consider Xanax p.o. for anxiety. (2) Pleural effusion: Code(s): J90 - Pleural effusion, not elsewhere classified Status: Acute (3) Acute dyspnea: Code(s): R06.00 - Dyspnea, unspecified Status: Acute (4) Pneumonia: Qualifiers: Pneumonia type: due to unspecified organism Laterality: unspecified laterality Lung location: unspecified part of lung Qualified Code(s): J18.9 - Pneumonia, unspecified organism Code(s): J18.9 - Pneumonia, unspecified organism Status: Acute (5) Acute respiratory failure with hypoxia: Code(s): J96.01 - Acute respiratory failure with hypoxia Status: Acute History of Present Illness History of Present Illness Consult date: 02/22/21 Chief complaint: Left Side Pleural Effusion Narrative: This 60-year-old man presented with increasing shortness of breath. The patient was recently diagnosed with small cell lung cancer following left supraclavicular lymph node ultrasound-guided core biopsy and also cytology analysis of left pleural fluid. During most recent hospitalization he was found to have a left lower lobe lung mass occluding left lower lobe bronchus with consultation, hepatic masses, bilateral adrenal masses, bilateral hilar and mediastinal lymphadenopathy, left supraclavicular lymphadenopathy and, a massive left pleural effusion. On left thoracentesis, pleural fluid analysis showed no organism, and cytospin of the pleural fluid showed atypical cells with cluster suspicious for neoplasm. The patient was scheduled to be seen at a local cancer center for further management. He presented to the emergency room 2 days ago with increasing shortness of breath. He had no fever chills or hemoptysis. He had mild cough, occasionally coughing up mucus phlegm. Patient has had orthopnea, which has increased over the last week. patient underwent chest CT PA last night. Chest CT showed no pulmonary embolus, but worsened large left and small right pleural effusions, worsened diffuse right lung disease, likely a combination of pulmonary edema and pneumonia, airspace opacities throughout left lung, likely a combination of atelectasis and postobstructive pneumonia. Mucous plugging in left mainstem bronchus; Chest lymphadenopathy and liver and adrenal masses, consistent with metastatic disease. efforts are underway to transfer the patient to [facility] this a.m. Review of Systems Review of Systems: patient reports some weight loss, unknown lb. He has poor appetite. He has occasional acid reflux symptoms. He has orthopnea as stated above. He denied having nausea vomiting diarrhea constipation or abdominal pain. He has no urinary complaints. He denied having joint pain. He has mild lower extremity edema. He has increased anxiety requesting tranquilizers. [facility] Past Medical History Medical History Anxiety Chronic low back pain (Unknown) Chronic, continuous use of opioids Depression Fibromyalgia Gastroesophageal reflux disease Hypertension Hypothyroidism Mitral valve regurgitation Echocardiogram on 01/21/2018 showed [id number] mitral valve regurgitation. Tobacco abuse Surgical History Surgical History (Reviewed 02/21/21
[2021-02-22] MEDS: ALPRAZolam (*CRX) 0.5 MG TABLET PO ×2 (08:11→18:43)
[2021-02-22] MEDS: predniSONE 20 MG TABLET 40 MG PO (08:11)
[2021-02-22] MEDS: PANTOPRAZOLE 40 MG TABLET PO ×2 (08:11→21:15)
[2021-02-22] MEDS: ASPIRIN 81 MG ENTERIC TABLET PO (08:11)
[2021-02-22] MEDS: NICOTINE (*PBKC) 21 MG PATCH 1 PATCH TRANSDERM (08:12)
[2021-02-22] MEDS: GABAPENTIN 400 MG CAPSULE PO ×4 (08:12→21:15)
[2021-02-22] MEDS: guaiFENesin 12 HR 600 MG TABCR PO ×2 (08:12→21:14)
[2021-02-22] MEDS: LOSARTAN POTASSIUM 50 MG TABLET PO (08:12)
[2021-02-22] MEDS: UMECLIDINIUM/VILANTEROL 62.5-25 MCG ELLIPTA 1 PUFF INHALATION (08:51)
--- NOTE | 2021-02-22 13:01 | PDONCCN ---
[facility] - Date of Consult Date/Time: 02/22/21 13:01 Requesting Physician: Lashell Torrez MD Primary Care Provider: Janey Louie MD - Consult Narrative Reason for consult: Extensive stage small-cell lung cancer Narrative: Braxton Dyson is a 60 year old male with history of smoking 2 pack per day for 30 years duration recently diagnosed with small-cell lung cancer. He had thoracentesis done with 750 cc of fluid removed on February 08 and cytology showed malignant cells. Patient also had left supraclavicular lymph node biopsy done on February 08 and pathology showed small cell lung cancer. Patient now came back into the hospital with worsening of shortness of breath. He has been eating poorly as well. CTA chest was done that showed worsened large left and small right pleural effusion with worsened diffuse right lung disease and no PE. Previous chest CT from February 07 showed extensive liver metastases and bilateral adrenal metastasis. He denies any fevers and chills. Denies any chest pain. Review of Systems - Review of Systems All systems reviewed & are unremarkable except as noted in [facility] and [facility] Medical History: Medical History (Last Reviewed 02/21/21 @ 01:08 by Quan Choudhary MD) Anxiety Chronic low back pain Onset Date: Unknown Chronic, continuous use of opioids Depression Fibromyalgia Gastroesophageal reflux disease Hypertension Hypothyroidism Mitral valve regurgitation Echocardiogram on 01/21/2018 showed [id number] mitral valve regurgitation. Tobacco abuse Surgical History: Surgical History (Last Reviewed 02/21/21 @ 01:08 by Quan Choudhary MD) History of vocal cord polypectomy Status post laparoscopic appendectomy Onset Date: 07/26/19 Acute perforated appendicitis with generalized peritonitis. Family History: Family History (Last Reviewed 02/21/21 @ 01:08 by Quan Choudhary MD) Father Diabetes mellitus Sibling Cancer Son Diabetes mellitus Other Depression Family history of arthritis Family history of mental disorder Family history of thyroid disease Hypertension - Social History Social History: Social History (Last Reviewed 02/21/21 @ 01:08 by Quan Choudhary MD) Alcohol Use: Alcohol intake: never Substance Use: Substance use: never Others: Spiritual care concerns: No Smoking Status: Smoking status: Former smoker Smoking end date: 02/07/21 Smoking Pack-years: Smoking packs per day: 2 Smoking cigarettes per day: 40.0 Meds Home Medications Medication Instructions Recorded Confirmed Type aspirin 81 mg PO DAILY 07/26/19 02/21/21 History fentanyl See Rx Instructions .ROUTE .COMPLEX 07/26/19 02/21/21 History gabapentin 400 mg PO QID 07/26/19 02/21/21 History levothyroxine 50 mcg PO DAILY 07/26/19 02/21/21 History losartan 50 mg PO DAILY 07/26/19 02/21/21 History omeprazole magnesium [Prilosec OTC] 20 mg PO BID 08/22/19 02/21/21 History albuterol sulfate 2 puff INHALATION QID PRN #6.7 g 02/07/21 02/21/21 Rx albuterol sulfate 5 mg INHALATION Q6H #200 ml 02/07/21 02/21/21 Rx nebulizer and compressor #1 ea 02/07/21 Rx oxycodone-acetaminophen See Rx Instructions .ROUTE 02/08/21 02/21/21 History .COMPLEX PRN guaifenesin [Mucus Relief ER] 600 mg PO Q12HR #30 tablet 02/11/21 02/21/21 Rx naproxen sodium [Aleve] 220 mg PO BID PRN #0 cap 02/11/21 02/21/21 Rx prednisone 40 mg PO DAILY@0800 #4 tablet 02/11/21 02/21/21 Rx umeclidinium-vilanterol [Anoro 1 inh INHALATION DAILY #14 ea 02/11/21 02/21/21 Rx Ellipta] Allergies Allergy/AdvReac Type Severity Reaction Status Date / Time poison rubén extract Allergy Unknown Rash Verified 02/08/21 18:29 pollen extracts Allergy Unknown Congested Verified 02/08/21 18:29 Results - Labs CBC & Chem 7: 02/22/21 06:42 02/22/21 06:42 Labs: Short CBC 02/22/21 Range/Units 06:42 WBC 16.5 H (4.5-10.0) K/mm3
--- NOTE | 2021-02-22 15:19 | PM.IMPN ---
Progress Note: A&P Assessment and Plan (1) Pleural effusion: Code(s): J90 - Pleural effusion, not elsewhere classified Status: Acute Assessment and Plan: 02/21/21 13:26 ED-HPI narrative: Patient is a 60-year-old gentleman who presents to emergency department with chief complaint of shortness of breath. The patient has history of a left-sided pleural effusion and is recently been drained. The patient states that he is to follow-up with oncology at [facility] but has not seen them yet. Patient states that he was recently in the hospital and had fluid removed from the left side of his lung patient states he has been getting progressively more short of breath and this evening felt worse than normal. Patient reports this feels similar to whenever he had to have fluid removed from the left side of his lung. patient is 60-year-old male with recently seen at the hospital with long history of smoking and a small cell cancer recent biopsy the lymph node showed endocrine carcinoma patient is supposed to be seen at [facility] on February 28 however he shortness of breath was getting worse and presented emergency depart chest x-ray of the chest showed concerning for consolidation and pleural effusion, patient had ultrasound to evaluate for thoracentesis however the fluid volume is not significant for thoracentesis however it shows obstructive consolidation worsening lung cancer, I called Dr. Jett at [facility] since patient has not been seen in the clinic will not see patient immediately in the clinic or in the hospital, I have also called [facility] to transfer the patient however there were no bed available and patient is on waiting list, after long discussion with patient and his he has agreed to see Dr. Khoury for evaluation and chemotherapy, patient remains clinically stable he does not have significant complaint of shortness of breath while in the hospital and denies any fever or chills, patient white counts are slightly elevated, and since patient was in the hospital 2 weeks ago will start the patient on Unasyn and vancomycin, will monitor. (2) Pneumonia: Qualifiers: Pneumonia type: due to unspecified organism Laterality: unspecified laterality Lung location: unspecified part of lung Qualified Code(s): J18.9 - Pneumonia, unspecified organism Code(s): J18.9 - Pneumonia, unspecified organism Status: Acute Assessment and Plan: CT of chest reviewed-->combination of pulmonary edema and pneumonia Continue Unasyn and vancomycin Duo nebs O2 to keep sats >95% (3) Lung cancer, primary, with metastasis from lung to other site: Code(s): C34.90 - Malignant neoplasm of unspecified part of unspecified bronchus or lung Status: Acute Assessment and Plan: Recent diagnosis Feb 08 CT with liver and bilateral adrenal mets CT of chest reviewed and noted above Oncology consulted Pt will need inpatient chemo or radiation Transfer pending to [facility] vs [facility] in [facility] (4) Gastroesophageal reflux disease: Code(s): K21.9 - Gastro-esophageal reflux disease without esophagitis Status: Acute Assessment and Plan: Continue will start the patient on PPI (5) Acute respiratory failure with hypoxia: Code(s): J96.01 - Acute respiratory failure with hypoxia Status: Acute Assessment and Plan: On home O2 3-4 Supplemental O2 to keep sats >95, on 4 L now Will give dose of IV Lasix (6) Hypertension: Code(s): I10 - Essential (primary) hypertension Status: Acute Assessment and Plan: Stable Continue home meds Monitor (7) Anxiety: Code(s): F41.9 - Anxiety disorder, unspecified Status: Inactive Assessment and Plan: No home meds Xanax 0.5 po TID prn for now Subjective Date/time seen: 02/22/21 15:19 Interval history: Pt seen this morning; at the bedside; monika
--- NOTE | 2021-02-22 15:24 | PC.NURSE ---
On 02/22/21, the student, [ Amanda Blanton], provided care and completed [facility] documentation on this patient. I have reviewed the student's documentation and agree with the findings.
[2021-02-22] MEDS: FUROSEMIDE INJ 40 MG/4 ML VIAL 20 MG IV PUSH (16:49)
[2021-02-22] MEDS: MORPHINE SULFATE (*CRX) 4 MG/ML INJ IV PUSH ×2 (21:21→23:35)
[2021-02-23] VITALS (14 sets, daily range): BP systolic 110–143; BP diastolic 70–80; PULSE 87–102; RESP 18–20; TEMP 35.9–36.5; O2SAT 93–100
[2021-02-23] MEDS: ALBUTEROL SULFATE (*SP) AEROSOL 1 PUFF 2 PUFF INHALATION (00:15)
[2021-02-23] MEDS: MORPHINE SULFATE (*CRX) 4 MG/ML INJ IV PUSH ×10 (01:54→21:31)
[2021-02-23] MEDS: AMPICILLIN SULB 3 GM/NS 100 ML 3 GM/100 ML VIAL IVPB ×4 (02:27→20:18)
[2021-02-23] MEDS: ALBUTEROL SULFATE NEB 2.5 MG/0.5 ML INH 5 MG INHALATION ×3 (02:28→14:30)
[2021-02-23 03:18] LABS: Hematocrit 26.8 % (42.0-52.0); Hemoglobin 8.7 g/dL (14.0-18.0); Mean Corpuscular HGB Conc 32.5 g/dl (32-36); Mean Corpuscular Hemoglobin 26.1 pg (26-34); Mean Corpuscular Volume 80.5 fl (80-100); Mean Platelet Volume 8.1 fl (7.4-10.4); Platelet Count Result 698 k/mm3 (150-375); Red Blood Count 3.33 M/mm3 (4.6-6.20); Red Cell Distribution Width 15.4 % (11.5-14.5); White Blood Count 15.4 K/mm3 (4.5-10.0)
[2021-02-23 03:38] LABS: Alanine Aminotransferase 21 U/L (4-50); Albumin Level 3.1 g/dL (3.5-5.1); Alkaline Phosphatase 172 U/L (38-126); Anion Gap 10 mmol/L (8-16); Aspartate Amino Transferase 61 U/L (17-59); Bilirubin,Total 0.4 mg/dL (0.2-1.3); Blood Urea Nitrogen 14 mg/dL (9-20); Calcium 8.5 mg/dL (8.4-10.2); Carbon Dioxide 31 mmol/L (22-30); Chloride 84 mmol/L (98-107); Estimated CRCL calculation 108 ml/min; Estimated Glomerular Filt Rate > 60; Glucose 105 mg/dL (65-110); Potassium 4.1 mmol/L (3.4-5.0); Sodium 125 mmol/L (137-145)
[2021-02-23 03:49] LABS: Vancomycin Trough 5.4 ug/mL (10.0-20.0)
[2021-02-23] MEDS: LEVOTHYROXINE SODIUM 50 MCG TABLET PO (05:41)
[2021-02-23] MEDS: UMECLIDINIUM/VILANTEROL 62.5-25 MCG ELLIPTA 1 PUFF INHALATION (08:07)
[2021-02-23] MEDS: LOSARTAN POTASSIUM 50 MG TABLET PO (09:09)
[2021-02-23] MEDS: predniSONE 20 MG TABLET 40 MG PO (09:09)
[2021-02-23] MEDS: GABAPENTIN 400 MG CAPSULE PO ×4 (09:09→20:19)
[2021-02-23] MEDS: PANTOPRAZOLE 40 MG TABLET PO ×2 (09:09→20:19)
[2021-02-23] MEDS: ASPIRIN 81 MG ENTERIC TABLET PO (09:09)
[2021-02-23] MEDS: guaiFENesin 12 HR 600 MG TABCR PO ×2 (09:09→20:19)
[2021-02-23] MEDS: fentaNYL (*CRX) 25 MCG PATCH TRANSDERM (09:10)
[2021-02-23] MEDS: NICOTINE (*PBKC) 21 MG PATCH 1 PATCH TRANSDERM (09:10)
--- NOTE | 2021-02-23 12:40 | PM.IMPN ---
Progress Note: A&P Assessment and Plan (1) Acute respiratory failure with hypoxia: Code(s): J96.01 - Acute respiratory failure with hypoxia Status: Acute Assessment and Plan: Patient with acute on chronic hypoxia respiratory failure. He is on home oxygen at 3-4 L but has been requiring up to 5 L here. Respiratory failure related to severe left lung small cell lung cancer involvement as well as pneumonia. Continue albuterol. Continue IV antibiotics. Attempt to transfer to a tertiary care center for more definitive treatment for his cancer. Wean oxygen as tolerated (2) Lung cancer, primary, with metastasis from lung to other site: Code(s): C34.90 - Malignant neoplasm of unspecified part of unspecified bronchus or lung Status: Acute Assessment and Plan: Patient recent diagnosis with small cell lung CA by a supraclavicular LN bx 02/09/21. CT chest at that time showing left lower lobe occlusion and postobstructive consolidation with extensive left hilar, subcarinal, aortopulmonary window, precarinal, right paratracheal and bilateral superior mediastinal metastatic lymphadenopathy; left malignant effusion; extensive hepatic metastatic disease; and probable bilateral adrenal metastases. Oncology consulted and felt related to SCL CA and recommended urgent radiation therapy and chemotherapy. Plan to transfer to [facility] in [place] or [facility]; called both facilities but still no beds available. Brain MR recommended as well but will defer to the accepting location. (3) Pleural effusion: Code(s): J90 - Pleural effusion, not elsewhere classified Status: Acute Assessment and Plan: Chest CTA showing worsened large left and small right pleural effusions. Thoracentesis ordered but chest US showing consolidation and only small left pleural effusion. As such the thoracentesis was abandoned. Suspect the left lung is now encased with cancer. (4) Pneumonia: Qualifiers: Laterality: unspecified laterality Lung location: unspecified part of lung Pneumonia type: due to unspecified organism Qualified Code(s): J18.9 - Pneumonia, unspecified organism Code(s): J18.9 - Pneumonia, unspecified organism Status: Acute Assessment and Plan: CT of chest reviewed showing worsened diffuse right lung disease, likely a combination of pulmonary edema and pneumonia. Also with airspace disease throughout the left lung concerning for postobstructive pneumonia. He has been started on Unasyn and vancomycin. No blood cultures were collected. Remains stable on 4-5 L of oxygen. Continue albuterol. Add Pulmozyme see if this might improve sputum production. (5) Hypertension: Code(s): I10 - Essential (primary) hypertension Status: Acute Assessment and Plan: Stable. Continue Cozaar. Continue to monitor. (6) Anxiety: Code(s): F41.9 - Anxiety disorder, unspecified Status: Inactive Assessment and Plan: Patient states he takes lorazepam at home. Will clarify medications and resume home benzodiazepines. (7) Hyponatremia: Code(s): E87.1 - Hypo-osmolality and hyponatremia Status: Acute Assessment and Plan: Na 125 today. Appears to be chronically low felt related to his lung disease. Will check urine studies. (8) DVT prophylaxis: Code(s): Z29.9 - Encounter for prophylactic measures, unspecified Status: Acute Assessment and Plan: Add Lovenox. Check Dopplers given the new pedal edema. Subjective Date/time seen: 02/23/21 12:40 Interval history: 60yo male with metastatic small cell lung CA here for increasing SOB. Assuming care. Chart reviewed. Patient with persistent SOB. He wears 3.5L at home. Deneis chest pain. He has chronic chest congestion and has trouble expectorating. Chronic cough that is occasionally productive. Not on steroids chronically. Pedal edema noted [id number]
--- NOTE | 2021-02-23 14:47 | PC.NURSE ---
patient to ultrasound per stretcher
[2021-02-23] MEDS: ENOXAPARIN 40 MG/0.4 ML SYRINGE SUB-Q (15:15)
[2021-02-23] MEDS: LORazepam (*CRX) 0.5 MG TABLET 0.25 MG PO (15:24)
[2021-02-23 19:01] LABS: Creatinine Urine 99.9 mg/dL
[2021-02-23 19:07] LABS: Sodium Urine Random 55 meq/L
[2021-02-23] MEDS: oxyCODONE HCL (*CRX) 5 MG TAB IR PO (20:25)
[2021-02-23] MEDS: oxyCODONE/ACETAMINOPHEN (*CRX) 5-325 MG TABLET 1 TABLET PO (20:25)
[2021-02-23] MEDS: BELLADONNA ALK/PHENOB ELIX 10 ML, MAG HYDROX/ALUMINUM HYD/SIMETH 30 ML, LIDOCAINE HCL 2... PO (23:02)
[2021-02-24] VITALS (10 sets, daily range): BP systolic 130–138; BP diastolic 70–81; PULSE 86–97; RESP 18–21; TEMP 36–36.4; O2SAT 91–100
[2021-02-24] MEDS: MORPHINE SULFATE (*CRX) 4 MG/ML INJ IV PUSH ×5 (00:40→17:35)
--- NOTE | 2021-02-24 01:53 | PCRCNOTE ---
Window of time for administration has passed. See next scheduled administration.
[2021-02-24] MEDS: ALBUTEROL SULFATE NEB 2.5 MG/0.5 ML INH 5 MG INHALATION ×4 (01:54→16:53)
[2021-02-24] MEDS: AMPICILLIN SULB 3 GM/NS 100 ML 3 GM/100 ML VIAL IVPB ×3 (02:15→14:36)
[2021-02-24] MEDS: oxyCODONE/ACETAMINOPHEN (*CRX) 5-325 MG TABLET 1 TABLET PO ×2 (02:21→12:53)
[2021-02-24] MEDS: oxyCODONE HCL (*CRX) 5 MG TAB IR PO ×2 (02:21→12:53)
[2021-02-24] MEDS: LEVOTHYROXINE SODIUM 50 MCG TABLET PO (05:38)
[2021-02-24 07:34] LABS: Hematocrit 26.5 % (42.0-52.0); Hemoglobin 8.7 g/dL (14.0-18.0); Mean Corpuscular HGB Conc 32.8 g/dl (32-36); Mean Corpuscular Hemoglobin 26.5 pg (26-34); Mean Corpuscular Volume 80.8 fl (80-100); Mean Platelet Volume 8.5 fl (7.4-10.4); Platelet Count Result 701 k/mm3 (150-375); Red Blood Count 3.28 M/mm3 (4.6-6.20); Red Cell Distribution Width 15.3 % (11.5-14.5); White Blood Count 11.9 K/mm3 (4.5-10.0)
[2021-02-24 08:19] LABS: Alanine Aminotransferase 24 U/L (4-50); Albumin Level 3.2 g/dL (3.5-5.1); Alkaline Phosphatase 153 U/L (38-126); Anion Gap 6 mmol/L (8-16); Aspartate Amino Transferase 58 U/L (17-59); Bilirubin,Total 0.2 mg/dL (0.2-1.3); Blood Urea Nitrogen 13 mg/dL (9-20); Calcium 8.4 mg/dL (8.4-10.2); Carbon Dioxide 32 mmol/L (22-30); Chloride 81 mmol/L (98-107); Estimated CRCL calculation 108 ml/min; Estimated Glomerular Filt Rate > 60; Glucose 129 mg/dL (65-110); Sodium 119 mmol/L (137-145)
[2021-02-24] MEDS: guaiFENesin 12 HR 600 MG TABCR PO (08:26)
[2021-02-24] MEDS: predniSONE 20 MG TABLET 40 MG PO (08:26)
[2021-02-24] MEDS: GABAPENTIN 400 MG CAPSULE PO ×3 (08:27→17:35)
[2021-02-24] MEDS: NICOTINE (*PBKC) 21 MG PATCH 1 PATCH TRANSDERM (08:27)
[2021-02-24] MEDS: ASPIRIN 81 MG ENTERIC TABLET PO (08:27)
[2021-02-24] MEDS: LOSARTAN POTASSIUM 50 MG TABLET PO (08:27)
[2021-02-24] MEDS: ENOXAPARIN 40 MG/0.4 ML SYRINGE SUB-Q (08:27)
[2021-02-24] MEDS: PANTOPRAZOLE 40 MG TABLET PO (08:27)
[2021-02-24] MEDS: UMECLIDINIUM/VILANTEROL 62.5-25 MCG ELLIPTA 1 PUFF INHALATION (09:21)
[2021-02-24] MEDS: DORNASE ALFA INH SOLN 1 MG/ML 2.5 ML AMP 2.5 MG INHALATION (09:21)
--- NOTE | 2021-02-24 09:36 | PM.IMPN ---
Progress Note: A&P Assessment and Plan (1) Acute respiratory failure with hypoxia: Code(s): J96.01 - Acute respiratory failure with hypoxia Status: Acute Assessment and Plan: Patient with acute on chronic hypoxia respiratory failure. He is on home oxygen at 3-4 L but has been requiring up to 5 L here. Respiratory failure related to severe left lung small cell lung cancer involvement as well as pneumonia +/- fluid overload. Continue albuterol. Continue IV antibiotics. Attempt to transfer to a tertiary care center for more definitive treatment for his cancer. Wean oxygen as tolerated. lasix once. (2) Lung cancer, primary, with metastasis from lung to other site: Code(s): C34.90 - Malignant neoplasm of unspecified part of unspecified bronchus or lung Status: Acute Assessment and Plan: Patient recent diagnosis with small cell lung CA by a supraclavicular LN bx 02/09/21. CT chest at that time showing left lower lobe occlusion and postobstructive consolidation with extensive left hilar, subcarinal, aortopulmonary window, precarinal, right paratracheal and bilateral superior mediastinal metastatic lymphadenopathy; left malignant effusion; extensive hepatic metastatic disease; and probable bilateral adrenal metastases. Oncology consulted and felt related to SCL CA and recommended urgent radiation therapy and chemotherapy. Plan to transfer to [facility] in [place] or [facility] in [facility]; called both facilities last night still no beds available. Brain MR recommended as well but will defer to the accepting location. Called [facility] and [facility] this mroning and no bed available. Spoke with oncology about this situation and need for treatment for this patient. Plan to have Gen Surgery consulted for [facility] kolby Christy to consider treatment. Dr Khoury will inquire about inpatient chemo. Check MR brain Spoke again with Radiology. After reviewing the images, they may be able to for thoracentesis for therapeutic benefit. Patient did receive Lovenox today. Will go ahead and order the thoracentesis for either later this evening or tomorrow morning. Hold Lovenox 45 minutes spent on critical care time (3) Pleural effusion: Code(s): J90 - Pleural effusion, not elsewhere classified Status: Acute Assessment and Plan: Chest CTA showing worsened large left and small right pleural effusions. Thoracentesis ordered but chest US showing consolidation and only small left pleural effusion. As such the thoracentesis was abandoned. Spoke with radiology who felt this was loculated. he will discuss with other radiologist to see if something can be tapped. (4) Pneumonia: Qualifiers: Laterality: unspecified laterality Lung location: unspecified part of lung Pneumonia type: due to unspecified organism Qualified Code(s): J18.9 - Pneumonia, unspecified organism Code(s): J18.9 - Pneumonia, unspecified organism Status: Acute Assessment and Plan: CT of chest reviewed showing worsened diffuse right lung disease, likely a combination of pulmonary edema and pneumonia. Also with airspace disease throughout the left lung concerning for postobstructive pneumonia. He has been started on Unasyn and vancomycin. No blood cultures were collected. Lasix x1 given 02/22. Remains stable on 4-5 L of oxygen. Continue albuterol. Continue Pulmozyme. Change to Atrovent. Repeat lasix. (5) Hypertension: Code(s): I10 - Essential (primary) hypertension Status: Acute Assessment and Plan: Blood pressure well controlled. Continue Cozaar. Continue to monitor. (6) Anxiety: Code(s): F41.9 - Anxiety disorder, unspecified Status: Inactive Assessment and Plan: Patient states he takes lorazepam at home which has been resumed (7) Hyponatremia: Code(s): E87.1 - Hypo-osmolality and hyponatremia Status: Acute Assessment and Plan: Sodium chronicall
[2021-02-24] MEDS: LORazepam (*CRX) 0.5 MG TABLET 0.25 MG PO (09:54)
[2021-02-24 10:36] LABS: NT Pro B Type Natriuretic Pept 719 pg/mL (5-100)
[2021-02-24] MEDS: FUROSEMIDE INJ 40 MG/4 ML VIAL 20 MG IV PUSH (11:42)
--- NOTE | 2021-02-24 12:13 | PC.NURSE ---
On 02/24/21, the student, Martínez LAINEZ [facility], provided care and completed [facility] documentation on this patient. I have reviewed the student's documentation and agree with the findings.
[2021-02-24 12:37] LABS: Sodium 119 mmol/L (137-145)
--- NOTE | 2021-02-24 12:55 | WPDONCPN ---
Progress Note: A/P - Additional Plan Extensive stage small-cell lung cancer. Case discussed with Dr. Salvador. We will proceed with 1st round of chemotherapy with carboplatin and HAM CURER 16 tomorrow. We are still waiting for transfer to [facility] for continuation of chemotherapy and addition of radiation therapy treatment. I have also discussed this case with Dr. Sumeet ross in Radiation Oncology. Patient will also have brain CT scan. He does not want MRI. Surgery service has been consulted for port placement. Patient will follow-up with us after the discharge for continuation of chemotherapy treatment. - Time Spent With Patient Total time spent is greater than 50% in coordination of care (as documented) at patient's floor/unit and/or counseling patient: 15 - 25 minutes Subjective Interval history: Extensive stage small-cell lung cancer Review of Systems - Review of Systems Patient remains quite tired and fatigue and has been complaining of some chest discomfort. He is having shortness of breath. Denies any headaches and seizures. Exam Vital signs: Temp Pulse Resp BP Pulse Ox 36.0 C L 88 20 138/81 92 02/24/21 06:00 02/24/21 09:22 02/24/21 09:22 02/24/21 06:00 02/24/21 09:27 Narrative: Lungs. Patient has congested lung with some wheezing Cardiovascular regular rate rhythm Abdomen soft nontender nondistended bowel sounds are positive Extremities no edema PN: Objective Data - Labs CBC & Chem 7: 02/24/21 06:45 02/24/21 11:29 Labs: Laboratory Results - last 24 hr 02/21/21 02/21/21 02/23/21 00:00 00:00 17:51 WBC 13.9 H RBC 3.23 L Hgb 8.7 L Hct 26.2 L MCV 81.1 MCH 26.9 MCHC 33.2 RDW 15.0 H Plt Count 753 H MPV 8.3 Immature Gran % (Auto) 0.6 H Neut % (Auto) 85.4 H Lymph % (Auto) 6.6 L Robertson % (Auto) 6.4 Eos % (Auto) 0.8 Baso % (Auto) 0.2 Lymph # (Auto) 0.92 Robertson # (Auto) 0.9 H Eos # (Auto) 0.1 Baso # (Auto) 0.0 Abs Immat Gran (auto) 0.09 H Absolute Neuts (auto) 11.9 H Absolute Nucleated RBC 0.0 Nucleated RBC % 0.0 Sodium 127 L Potassium 4.1 Chloride 91 L Carbon Dioxide 30 Anion Gap 6 L BUN 13 Creatinine 0.50 L Estim Creat Clear Calc 108 Estimated GFR > 60 Glucose 117 H Calcium 8.3 L Total Bilirubin 0.3 AST 52 ALT 25 Alkaline Phosphatase 209 H NT-Pro-B Natriuret Pep Total Protein 6.0 L Albumin 3.0 L Ur Random Sodium Urine Creatinine 99.9 02/23/21 02/24/21 02/24/21 17:51 06:44 06:45 WBC 11.9 H RBC 3.28 L Hgb 8.7 L Hct 26.5 L MCV 80.8 MCH 26.5 MCHC 32.8 RDW 15.3 H Plt Count 701 H MPV 8.5 Immature Gran % (Auto) Neut % (Auto) Lymph % (Auto) Robertson % (Auto) Eos % (Auto) Baso % (Auto) Lymph # (Auto) Robertson # (Auto) Eos # (Auto) Baso # (Auto) Abs Immat Gran (auto) Absolute Neuts (auto) Absolute Nucleated RBC Nucleated RBC % Sodium Potassium Chloride Carbon Dioxide Anion Gap BUN Creatinine Estim Creat Clear Calc Estimated GFR Glucose Calcium Total Bilirubin AST ALT Alkaline Phosphatase NT-Pro-B Natriuret Pep 719 H Total Protein Albumin Ur Random Sodium 55 Urine Creatinine 02/24/21 02/24/21 06:45 11:29 WBC RBC Hgb Hct MCV MCH MCHC RDW Plt Count MPV Immature Gran % (Auto) Neut % (Auto) Lymph % (Auto) Robertson % (Auto) Eos % (Auto) Baso % (Auto) Lymph # (Auto) Robertson # (Auto) Eos # (Auto) Baso # (Auto) Abs Immat Gran (auto) Absolute Neuts (auto) Absolute Nucleated RBC Nucleated RBC % Sodium 119 L* 119 L* Potassium 4.0 Chloride 81 L Carbon Dioxide 32 H Anion Gap 6 L BUN 13 Creatinine 0.50 L Estim Creat Clear Calc 108 Estimated GFR > 60 Glucose 129 H Calcium 8.4 Total Bilirubin 0.2
--- NOTE | 2021-02-24 12:57 | PDRADONCCN ---
Recommendations He really needs transfer to tertiary care center. I have phoned the [facility] transfer desk and told them my intention to treat with XRT immediately if transferred. He is not stable enough for XRT at this facility. I suspect, he will end up needing intubation for treatment given his inability to lay flat. If no transfer is forthcoming, starting chemotherapy alone is the only other reasonable option. Call with questions, Sumeet Balderas MD, PhD [phone] Impression Small cell lung cancer causing respiratory distress. [facility] - Date/Time Seen 02/24/21 12:57 - Identifying Data 60 y/o male with extensive stage small cell lung cancer - History of Present Illness Patient is admitted with respiratory distress from post-obstructive pneumonia caused by small cell lung cancer. Diagnosis was confirmed by biopsy in mid-January. He is currently on 5 L nasal canula, and unable to tolerate laying flat. Multiple attempts have been made for transfer without success. No history of prior XRT. No history of connective tissue disease. - Medical History Medical History (Last Updated 02/22/21 @ 15:56 by SEVERIANO Hill) Anxiety Chronic low back pain Onset Date: Unknown Chronic, continuous use of opioids Depression Fibromyalgia Gastroesophageal reflux disease Hypertension Hypothyroidism Mitral valve regurgitation Echocardiogram on 01/21/2018 showed [id number] mitral valve regurgitation. Tobacco abuse - Surgical History Surgical History (Last Reviewed 02/21/21 @ 01:08 by Quan Choudhary MD) History of vocal cord polypectomy Status post laparoscopic appendectomy Onset Date: 07/26/19 Acute perforated appendicitis with generalized peritonitis. - Family History Family History (Last Reviewed 02/21/21 @ 01:08 by Quan Choudhary MD) Father Diabetes mellitus Sibling Cancer Son Diabetes mellitus Other Depression Family history of arthritis Family history of mental disorder Family history of thyroid disease Hypertension - Social History Social History (Last Reviewed 02/21/21 @ 01:08 by Quan Choudhary MD) Alcohol Use: Alcohol intake: never Substance Use: Substance use: never Others: Spiritual care concerns: No Smoking Status: Smoking status: Former smoker Smoking end date: 02/07/21 Smoking Pack-years: Smoking packs per day: 2 Smoking cigarettes per day: 40.0 - Medications Active Medications Generic Name Dose Route Start Last Admin Trade Name Freq PRN Reason Stop Dose Admin Acetaminophen 650 mg 02/24/21 10:02 Acetaminophen 325 Mg Tablet PO Q6H PRN Mild Pain (1-3) or Fever Albuterol 2 puff 02/21/21 13:21 02/23/21 00:15 Albuterol Sulfate (*Sp) Aerosol 1 Puff INHALATION 2 puff QIDRT PRN Administration shortness of breath or wheezing Albuterol 5 mg 02/21/21 14:00 02/24/21 09:21 Albuterol Sulfate Neb 2.5 Mg/0.5 Ml Inh INHALATION 5 mg Q6HRT LOTTIE Administration Aspirin 81 mg 02/21/21 09:00 02/24/21 08:27 Aspirin 81 Mg Enteric Tablet PO 81 mg DAILY LOTTIE Administration Dornase Geronimo 2.5 mg 02/23/21 20:00 02/24/21 09:21 Dornase Geronimo Inh Soln 1 Mg/Ml 2.5 Ml Amp INHALATION 2.5 mg Q12HRT LOTTIE Administration Enoxaparin Sodium 40 mg 02/24/21 09:00 02/24/21 08:27 Enoxaparin 40 Mg/0.4 Ml Syringe SUB-Q 40 mg DAILY LOTTIE Administration Fentanyl 25 mcg 02/23/21 09:00 02/23/21 09:10 Fentanyl (*Crx) 25 Mcg Patch TRANSDERM 25 mcg Q72H LOTTIE Administration Gabapentin 400 mg 02/21/21 13:00 02/24/21 12:54 Gabapentin 400 Mg Capsule PO 400 mg QID LOTTIE Administration Guaifenesin 600 mg 02/21/21 21:00 02/24/21 08:26 Guaifenesin 12 Hr 600 Mg Tabcr PO 600 mg Q12HR LOTTIE Administration Ampicillin Sodium/Sulbactam Sodium 3 gm in 100 mls @ 200 mls/hr 02/21/21 15:00 02/24/21 09:00 Unasyn 3
[2021-02-24 13:08] LABS: Thyroid Stimulating Hormone Reflex 0.917 uIU/mL (0.465-4.68)
[2021-02-24] MEDS: IPRATROPIUM BR 0.02% INH SOLN 0.5 MG/2.5 ML VIAL INHALATION ×2 (13:33→16:53)
[2021-02-24 16:17] LABS: Sodium 118 mmol/L (137-145)
--- NOTE | 2021-02-24 16:28 | PM.TDS ---
Transfer Discharge Sum: Prov Provider Date of admission: 02/21/21 15:59 Primary care physician: Janey Louie MD Admitting clinician: Lashell Torrez MD Consults: 02/21/21 13:20 Consult to Physician Routine Comment: spoke to dr @1415 (,) Consulting Provider: Aaron Khoury rn call center/MD group to consult: Dr. Aaron Khoury Reason for consultation: Lung CA Has provider been notified: Yes 02/21/21 16:43 Consult to Physician Routine Comment: spoke to dr @1707 (,) Consulting Provider: Terrence Phillips rn call center/MD group to consult: Dr. Phillips linen controller Reason for consultation: Lung CA with obstruction Has provider been notified: No 02/24/21 10:11 Consult to Physician Routine Comment: Spoke with office @10:29 (,) Consulting Provider: Sesar Bustos rn call center/MD group to consult: General surgery Reason for consultation: Patient needs Port Has provider been notified: Yes Consult to Physician Routine Comment: Spoke with office @11:03 (,) Consulting Provider: Sumeet Balderas rn call center/MD group to consult: Radiation oncology Reason for consultation: small cell lung CA Has provider been notified: Yes Attending physician on discharge: Quan Salvador Discharging clinician: Quan Salvador Anticipated date of transfer: 02/24/21 Receiving physician/facility: [facility] DS: Admitting Diagnosis Discharge Date 02/24/21 Admitting Diagnosis Shortness of breath DS: Discharge Diagnosis Discharge Diagnosis (1) Acute respiratory failure with hypoxia: Code(s): J96.01 - Acute respiratory failure with hypoxia Status: Acute Assessment and Plan: Patient with acute on chronic hypoxia respiratory failure. He is on home oxygen at 3-4 L but has been requiring up to 5 L here. Respiratory failure related to severe left lung small cell lung cancer involvement as well as pneumonia +/- fluid overload. Continue albuterol. Continue IV antibiotics. Attempt to transfer to a tertiary care center for more definitive treatment for his cancer. Wean oxygen as tolerated. lasix once. (2) Lung cancer, primary, with metastasis from lung to other site: Code(s): C34.90 - Malignant neoplasm of unspecified part of unspecified bronchus or lung Status: Acute Assessment and Plan: Patient recent diagnosis with small cell lung CA by a supraclavicular LN bx 02/09/21. CT chest at that time showing left lower lobe occlusion and postobstructive consolidation with extensive left hilar, subcarinal, aortopulmonary window, precarinal, right paratracheal and bilateral superior mediastinal metastatic lymphadenopathy; left malignant effusion; extensive hepatic metastatic disease; and probable bilateral adrenal metastases. Patient discharged 02/11 but returns 02/21 for increasing SOB. CTA showing no PE but showing worsening large left and small right pleural effusions and airspace opacities t/o the left lung felt to be mucous plugging and post-obstructive PNA. Oncology consulted and felt related to small cell CA and recommended urgent radiation therapy and chemotherapy. CPT and Pulmozyme started. Pulmonary consulted. Plan to transfer to [facility] in [facility] but no beds available. Brain MR recommended but not able to obtain since patient could not lie flat; CT brain was performed and was normal. Spoke with oncology about this situation and need for treatment for this patient. He agreed to plan treatment at [place]. Plan to have Gen Surgery consulted for [facility] and [facility] to consider treatment. Dr Khoury will inquire about inpatient chemo. Spoke with [facility] who contacted [facility]. Bed has become available with plans to transfer their tonight. (3) Pleural effusion: Code(s): J90 - Pleural effusion, not elsewhere classified Status: Acute Assessment and Plan: Chest CTA showing worsening large left and small right pleural effusions. Thoracentesis ordered but chest US showing c
[2021-02-24 16:48] LABS: Vancomycin Trough 7.9 ug/mL (10.0-20.0)
[2021-02-24] MEDS: SODIUM CHLORIDE 500 MG TABLET PO (17:35)
--- NOTE | 2021-02-24 18:45 | PC.NURSE ---
Called report to [facility] at [facility].
== END 2021-02-24 19:33 | disposition short-term general hospital (02) | DRG 193 ==
LOC: ANHED 02-21 02:00 → ANH3MEDSUR 02-21 04:44
PROVIDERS: Family Medicine; Admitting Provider Internal Medicine; Emergency Provider Emergency Medicine; PCP Family Medicine; Visit Provider Internal Medicine
DX: J18.9 Pneumonia, unspecified organism (principal); J96.21 Acute and chronic respiratory failure with hypoxia; C34.90 Malignant neoplasm of unspecified part of unspecified bronchus or lung; C78.7 Secondary malignant neoplasm of liver and intrahepatic bile duct; C79.72 Secondary malignant neoplasm of left adrenal gland; C79.71 Secondary malignant neoplasm of right adrenal gland; J91.0 Malignant pleural effusion; E87.1 Hypo-osmolality and hyponatremia; J98.11 Atelectasis; Z20.822 Contact with and (suspected) exposure to COVID-19; I10 Essential (primary) hypertension; M79.7 Fibromyalgia; E03.9 Hypothyroidism, unspecified; K21.9 Gastro-esophageal reflux disease without esophagitis; F41.9 Anxiety disorder, unspecified; F32.A Depression, unspecified; Z87.891 Personal history of nicotine dependence; Z99.81 Dependence on supplemental oxygen; Z79.82 Long term (current) use of aspirin; Z90.49 Acquired absence of other specified parts of digestive tract
CPT/HCPCS: 36415; 70450; 71045; 71046; 71275; 76604; 80053; 80202; 82533; 82570; 83880; 84295; 84300; 84443; 85025; 85027; 87426; 93005; 93970; 94640; 94667; 96365; 96374; 96375; 99285; A9270; C9803; G0378; J0295; J1650; J1940; J2270; J3370; J7512; Q9967